=== PATIENT | female | born 1950 | race Caucasian/White ===

== ENCOUNTER 2018-01-18 02:43 | Inpatient (IN) ==
[2018-01-18 03:17] LABS: Basophils # 0.3 K/mcL (0.0-0.2); Basophils % 1.3 %; Eosinophils # 0.6 K/mcL (0.0-0.6); Eosinophils % 2.5 %; Immature Granulocytes % 4.7 % (0-4); Lymphocytes # 8.7 K/mcL (0.6-4.6); Lymphocytes % 35.4 %; Mean Corpuscular HGB Conc 31.8 g/dL (31.6-35.5); Mean Corpuscular Hemoglobin 27.8 pg (28.0-33.3); Mean Corpuscular Volume 87.3 fL (83.0-100.0); Mean Platelet Volume 10.8 fL (9.4-12.4); Monocytes % 8.1 %; Neutrophils # 11.8 K/mcL (1.6-8.9); Nucleated Red Blood Cells 0.1 /100 WBC (0); Platelet Count 500 K/mcL (140-400); Red Blood Count 5.04 M/mcL (3.82-4.97); Red Cell Distribution Width 14.9 % (11.5-14.5)
[2018-01-18 03:23] LABS: Prothrombin Time 10.9 Seconds (9.4-12.1)
[2018-01-18 03:26] LABS: Activated Partial Thrombo Time 26.8 Seconds (26.0-36.0)
--- NOTE | 2018-01-18 03:26 | Emergency Department Note ---
Disposition Clinical Impression: Elevated troponin, Lactic acidosis Congestive heart failure Qualifiers: Heart failure type: unspecified Heart failure chronicity: unspecified Qualified Code(s): I50.9 - Heart failure, unspecified Pulmonary edema Qualifiers: Chronicity: acute Qualified Code(s): J81.0 - Acute pulmonary edema Respiratory failure Qualifiers: Chronicity: acute Respiratory failure complication: unspecified whether with hypoxia or hypercapnia Qualified Code(s): J96.00 - Acute respiratory failure, unspecified whether with hypoxia or hypercapnia Disposition: Admitted As Inpatient Condition: Critical Time of Disposition: 04:39 SOB HPI - General Chief Complaint: ED Shortness of Breath/Dyspnea Stated Complaint: LAMINE Time Seen by Provider: 01/18/18 02:46 Source: EMS Mode of arrival: EMS Limitations: other Nursing Notes Reviewed: Yes Vital Signs Reviewed: Yes - History of Present Illness 67-year-old female reported history of COPD presents an emergency department via EMS for difficulty breathing. On arrival patient is somnolent and in severe respiratory distress. She was found by EMS to be hypoxic 64%. She has a CPAP at home but was found without any oxygen. She had increase worker breathing. On arrival here she has a breathing treatment but his head bobbing with diminished breath sounds bilaterally. She is able to follow some commands but not all. She is not able to provide us with any additional history. On arrival patient is hypertensive systolic 228 with a heart rate of 158 and oxygen saturation of 92%. Emergent intubation was performed by myself 7.5 endotracheal tube with rapid sequence intubation etomidate 30 mg and rocuronium 100 mg. Accessible easy intubation. Suspect likely congestive heart failure exacerbation she appears fluid overload and is hypertensive Pt Subjective Complaint: shortness of breath - Related Data Home Medications Medication Instructions Recorded Confirmed Amlodipine 08/27/15 Aspirin 08/27/15 Citalopram 08/27/15 Gabapentin 08/27/15 Glimepiride 08/27/15 HumuLIN N 08/27/15 08/27/15 Losartan 08/27/15 Metformin 08/27/15 Metoprolol 08/27/15 Ranexa 08/27/15 Previous Rx's Medication Instructions Recorded Sulfamethoxazole/Trimeth DS 1 each PO BID #14 tablet 08/27/15 [Bactrim DS] Benzonatate [Tessalon] 200 mg PO TID PRN #30 capsule 12/01/15 GuaiFENesin ER [Mucinex] 1,200 mg PO BID #20 tbbp.12hr 12/01/15 Nitroglycerin 4.1 gm TL PRN PRN 30 Days spray 12/01/15 cephALEXin [Keflex] 500 mg PO QID #40 capsule 12/01/15 methylPREDNISolone [Medrol] 4 mg PO BIDWM #1 packet 12/01/15 cephALEXin [Cephalexin] 500 mg PO BID #14 tablet 11/10/17 Allergies Allergy/AdvReac Type Severity Reaction Status Date / Time enalaprilat [From Vasotec] Allergy Cough Verified 01/18/18 04:49 Nickel Allergy See Verified 01/18/18 04:49 Comments Beta-Blockers AdvReac Cough Verified 01/18/18 04:49 (Beta-Adrenergic Bloc Limitations: ROS unobtainable due to patients medical condition Past Medical History - Past Medical History Source: unable to obtain Medical history: Reports: diabetes, hypertension - Social History Smoking Status: Never smoker Smokeless Tobacco Status: No Alcohol use: Reports: none Physical Exam - General Limitations: other General appearance: lethargic, in distress (Respiratory, head bobbing), obese - Head Head exam: atraumatic, normocephalic, normal inspection - ENT ENT exam: normal exam, normal oropharynx, mucous membranes moist, other (foamy secretions) - Neck Neck exam: Present: normal inspection, full ROM, trachea midline, other ( buffalo hump) - Chest Chest inspection: Present: normal inspection, symmetric chest wall rise. Absent : tenderness - Respiratory Respiratory exam: Present: respiratory distress (moderate, head bobbing), wheezes, accessory muscle use, prolonged expiratory phase - Expanded Respiratory Exam Location: rhonchi: Right, Left, decreased breath sounds: Left, Right - Cardiovascular Cardiovascular exam: Present: normal rhythm, tachycardia, normal heart sounds. Absent: systolic murmur, diastolic murmur - Abdominal Exam Abdominal exam: Present: soft (obese), Non-Tender. Absent: tenderness, distention, guarding, rebound, rigidity - Extremities Exam Extremities exam: Present: normal inspection, full ROM, pedal edema (+2 pitting symmetrical). Absent: tenderness - Neurological Exam Neurological exam: Present: other (lethargic) - Skin Skin exam: Present: warm, dry, intact, normal color. Absent: rash, cyanosis, diaphoresis Course Course Narrative: The patient's friend who was with her tonight states that she awoken from sleep with her CPAP complaining of shortness of breath. He reports that this happens frequently through the night is not as bad as tonight. He confirms that the patient has a history of COPD, smoker, sleep apnea, diabetes and has a history of 8 stents in her heart. He is unsure if she has congestive heart failure. He states that she has been told that she has fluid around the long but does not take a water pill. Review of her chest x-ray shows appropriate position of endotracheal tube. Findings are consistent with pulmonary edema. Likely secondary to acute exacerbation of heart failure given her hypertension and respiratory failure. Patient will require admission to the intensive care unit for her respiratory failure. Labs are pending. EKG does not show any acute ischemic changes. Patient was successfully intubated on arrival. Will place her on a nitro drip to help with diuresis as a well as a dose of Lasix if her pressures tolerate. Propofol and fentanyl for sedation. Will have a Tovar catheter placed to monitor urine output. - Reevaluation(s) Reevaluation #1: Critical lab values of lactate 6.4 and troponin 0.04. Likely demand ischemia due to respiratory failure. Arterial blood gas pH 7.0 with CO2 of 80. Time: 03:40 Reevaluation #2: Review of her other labs she has a leukocytosis of 24. Her BNP is only 243. Patient will require it admission to the intensive care unit. Her blood pressures remain stable systolic 160 on nitro drip and propofol and fentanyl. She is appropriately sedated. Time: 04:18 Reevaluation #3: Patient given Versed as well as propofol bolus. She is more comfortable and not bucking the vent. Her heart rate has come down to 103. Her blood pressure is near normal systolic 120. Lungs sounds are much improved. There is better gas exchange. Some rales. She does not appear septic. She does not have a fever. No reports of cough home by deputy director of nursing. Leukocytosis likely stress response. At this time no antibiotics have been initiated. At this time presentation is consistent with pulmonary edema. She is stable for transfer to the intensive care unit. Will obtain a CT of the chest to evaluate for pulmonary embolism. - Consultations Consultation #1: Spoke with on-call hospitalist Dr. Naumovski, ok to admit patient to the intensive care unit for acute respiratory failure, pulmonary edema, CHF exacerbation, lactic acidosis, elevated troponin. Given her presentation will obtain a CT of the chest to evaluate for pulmonary embolism. The deputy director of nursing in the room states that she does is quite frequently through the night just not as bad. Time: 04:34 Vital Signs Temperature 97.4 F L 01/18/18 02:45 Pulse Rate 156 01/18/18 02:45 Respiratory Rate 40 01/18/18 02:45 Blood Pressure 250/133 01/18/18 02:45 O2 Sat by Pulse Oximetry 85 01/18/18 02:45 Temperature 97.4 F L 01/18/18 02:45 Pulse Rate 142 01/18/18 04:30 Respiratory Rate 19 01/18/18 04:57 Blood Pressure 120/86 01/18/18 04:57 O2 Sat by Pulse Oximetry 94 01/18/18 04:57 Oxygen Delivery Oxygen Delivery Ventilator Procedures - Intubation sedative: Etomidate Mg Given: 30 paralytic: Rocuronium Mg Given: 100 Laryngoscope: Milo ET Tube Size: 7.5 ET Tube Uncuffed: No Tube Secured Depth (cm): 22 Tube Secured Location: lips Tube Placement Confirmation: visualized tube passing through cords, equal breath sounds bilaterally, no breath sounds over epigastrium, confirmation by capnometry Patient Tolerated Procedure: well, no complications Intubation Complications: none Shortness of Breath/Dyspnea - MDM Narrative Medical decision making narrative: Patient was discussed with my attending physician who agrees with ED management and final disposition. They independently evaluated the patient. Please refer to their attestation to this encounter for additional information. This note was generated by [employer] voice recognition software and as a result grammatical or spelling errors may occur using this program. - Medical Records Medical records reviewed: Yes I reviewed the patient's medical records. - Lab Data Lab results reviewed: Yes I reviewed the patient's lab results. Result diagrams: 01/18/18 02:53 01/18/18 02:53 Lab Results 01/18/18 01/18/18 01/18/18 Range/Units 02:53 02:53 02:53 WBC 24.6 H (4.3-11.1) K/mcL RBC 5.04 H (3.82-4.97) M/mcL Hgb 14.0 (11.5-15.4) g/dL Hct 44.0 (35.3-44.9) % MCV 87.3 (83.0-100.0) fL MCH 27.8 L (28.0-33.3) pg MCHC 31.8 (31.6-35.5) g/dL RDW 14.9 H (11.5-14.5) % Plt Count 500 H (140-400) K/mcL MPV 10.8 (9.4-12.4) fL Immature Gran % 4.7 H (0-4) % Seg Neutrophils % 48.0 % Lymphocytes % 35.4 % Monocytes % 8.1 % Eosinophils % 2.5 % Basophils % 1.3 % Neutrophils # 11.8 H (1.6-8.9) K/mcL Lymphocytes # 8.7 H (0.6-4.6) K/mcL Monocytes # 2.0 H (0.0-1.3) K/mcL Eosinophils # 0.6 (0.0-0.6) K/mcL Basophils # 0.3 H (0.0-0.2) K/mcL Nucleated RBCs/100 WBC 0.1 H (0) /100 WBC Platelet Estimate Increased H (Normal) PT 10.9 (9.4-12.1) Seconds INR 1.0 APTT 26.8 (26.0-36.0) Seconds ABG pH (7.32-7.45) pH Units ABG pCO2 (35-45) mmHg ABG pO2 (85-104) mmHg ABG HCO3 (21-27) mEq/L ABG Total CO2 (20-26) mEq/L ABG O2 Saturation (95-98) % ABG Base Excess (-2 to 3) mEq/L Respiration Rate O2 Delivery Device Blood Gas Modality Inspired O2 (1-15=lpm [id number]=%) Tidal Volume cc PEEP cm H2O Sodium 137 (136-145) mEq/L Potassium 4.2 (3.5-5.1) mEq/L Chloride 104 (98-107) mEq/L Carbon Dioxide 18 L (23-29) mEq/L BUN 19 (8-23) mg/dL Creatinine 1.07 (0.60-1.20) mg/dL Est GFR ( Amer) > 60 (> 60) Est GFR (Non-Af Amer) 51 L (> 60) BUN/Creatinine Ratio 18 (6-26) Glucose 466 H (70-105) mg/dL Calculated Osmolality 307 H (280-300) Lactic Acid (0.5-2.2) mmol/L Calcium 8.9 (8.6-10.3) mg/dL Phosphorus 7.4 H (2.7-4.5) mg/dL Magnesium 1.9 (1.6-2.6) mg/dL Total Bilirubin 0.3 (0.3-1.0) mg/dL Direct Bilirubin 0.0 (0.0-0.2) mg/dL Indirect Bilirubin 0.3 (0.0-1.2) mg/dL AST 20 (13-39) Units/L ALT 19 (7-52) Units/L Alkaline Phosphatase 112 H (34-104) Units/L Troponin I 0.04 H* (< 0.04) ng/mL B-Natriuretic Peptide (Less than 100) pg/mL Serum Total Protein 6.9 (6.4-8.9) g/dL Albumin 4.1 (3.5-5.7) g/dL Globulin 2.8 (2.4-3.5) g/dL Albumin/Globulin Ratio 1.5 (1.1-2.2) Urine Color (Yellow) Urine Clarity (Clear) Urine pH (5.0-8.0) pH Units Ur Specific [place] (1.010-1.025) Urine Protein (Neg-Trace) mg/dL Urine Glucose (UA) (Normal) mg/dL Urine Ketones (Negative) mg/dL Urine Blood (Negative) Urine Nitrite (Negative) Urine Bilirubin (Negative) Urine Urobilinogen (Normal) mg/dL Ur Leukocyte Esterase (Negative) Urine Microscopic RBC (0-3) per hpf Urine Microscopic WBC (0-3) per hpf Ur Squamous Epith Cells (None-Few) per lpf Urine Bacteria (None-Few) per hpf Hyaline Casts (None-Few) per lpf Ur Culture Indicated? (NO) 01/18/18 01/18/18 01/18/18 Range/Units 02:53 02:53 03:18 WBC (4.3-11.1) K/mcL RBC (3.82-4.97) M/mcL Hgb (11.5-15.4) g/dL Hct (35.3-44.9) % MCV (83.0-100.0) fL MCH (28.0-33.3) pg MCHC (31.6-35.5) g/dL RDW (11.5-14.5) % Plt Count (140-400) K/mcL MPV (9.4-12.4) fL Immature Gran % (0-4) % Seg Neutrophils % % Lymphocytes % % Monocytes % % Eosinophils % % Basophils % % Neutrophils # (1.6-8.9) K/mcL Lymphocytes # (0.6-4.6) K/mcL Monocytes # (0.0-1.3) K/mcL Eosinophils # (0.0-0.6) K/mcL Basophils # (0.0-0.2) K/mcL Nucleated RBCs/100 WBC (0) /100 WBC Platelet Estimate (Normal) PT (9.4-12.1) Seconds INR APTT (26.0-36.0) Seconds ABG pH (7.32-7.45) pH Units ABG pCO2 (35-45) mmHg ABG pO2 (85-104) mmHg ABG HCO3 (21-27) mEq/L ABG Total CO2 (20-26) mEq/L ABG O2 Saturation (95-98) % ABG Base Excess (-2 to 3) mEq/L Respiration Rate O2 Delivery Device Blood Gas Modality Inspired O2 (1-15=lpm [id number]=%) Tidal Volume cc PEEP cm H2O Sodium (136-145) mEq/L Potassium (3.5-5.1) mEq/L Chloride (98-107) mEq/L Carbon Dioxide (23-29) mEq/L BUN (8-23) mg/dL Creatinine (0.60-1.20) mg/dL Est GFR ( Amer) (> 60) Est GFR (Non-Af Amer) (> 60) BUN/Creatinine Ratio (6-26) Glucose (70-105) mg/dL Calculated Osmolality (280-300) Lactic Acid 6.4 H* (0.5-2.2) mmol/L Calcium (8.6-10.3) mg/dL Phosphorus (2.7-4.5) mg/dL Magnesium (1.6-2.6) mg/dL Total Bilirubin (0.3-1.0) mg/dL Direct Bilirubin (0.0-0.2) mg/dL Indirect Bilirubin (0.0-1.2) mg/dL AST (13-39) Units/L ALT (7-52) Units/L Alkaline Phosphatase (34-104) Units/L Troponin I (< 0.04) ng/mL B-Natriuretic Peptide 243 H (Less than 100) pg/mL Serum Total Protein (6.4-8.9) g/dL Albumin (3.5-5.7) g/dL Globulin (2.4-3.5) g/dL Albumin/Globulin Ratio (1.1-2.2) Urine Color Yellow (Yellow) Urine Clarity Cloudy A (Clear) Urine pH 6.0 (5.0-8.0) pH Units Ur Specific [place] 1.026 H (1.010-1.025) Urine Protein >=300 H (Neg-Trace) mg/dL Urine Glucose (UA) >=1000 H (Normal) mg/dL Urine Ketones Negative (Negative) mg/dL Urine Blood Small H (Negative) Urine Nitrite Negative (Negative) Urine Bilirubin Negative (Negative) Urine Urobilinogen Normal (Normal) mg/dL Ur Leukocyte Esterase Negative (Negative) Urine Microscopic RBC 0-3 (0-3) per hpf Urine Microscopic WBC 50-100 H (0-3) per hpf Ur Squamous Epith Cells Many H (None-Few) per lpf Urine Bacteria None Seen (None-Few) per hpf Hyaline Casts Few (None-Few) per lpf Ur Culture Indicated? NO (NO) 01/18/18 Range/Units 03:25 WBC (4.3-11.1) K/mcL RBC (3.82-4.97) M/mcL Hgb (11.5-15.4) g/dL Hct (35.3-44.9) % MCV (83.0-100.0) fL MCH (28.0-33.3) pg MCHC (31.6-35.5) g/dL RDW (11.5-14.5) % Plt Count (140-400) K/mcL MPV (9.4-12.4) fL Immature Gran % (0-4) % Seg Neutrophils % % Lymphocytes % % Monocytes % % Eosinophils % % Basophils % % Neutrophils # (1.6-8.9) K/mcL Lymphocytes # (0.6-4.6) K/mcL Monocytes # (0.0-1.3) K/mcL Eosinophils # (0.0-0.6) K/mcL Basophils # (0.0-0.2) K/mcL Nucleated RBCs/100 WBC (0) /100 WBC Platelet Estimate (Normal) PT (9.4-12.1) Seconds INR APTT (26.0-36.0) Seconds ABG pH 7.02 L* (7.32-7.45) pH Units ABG pCO2 87 H* (35-45) mmHg ABG pO2 146 H (85-104) mmHg ABG HCO3 23 (21-27) mEq/L ABG Total CO2 25 (20-26) mEq/L ABG O2 Saturation 98 (95-98) % ABG Base Excess -11 L (-2 to 3) mEq/L Respiration Rate 14 O2 Delivery Device Adult Vent Blood Gas Modality VC Inspired O2 100.0 (1-15=lpm [id number]=%) Tidal Volume 500 cc PEEP 5 cm H2O Sodium (136-145) mEq/L Potassium (3.5-5.1) mEq/L Chloride (98-107) mEq/L Carbon Dioxide (23-29) mEq/L BUN (8-23) mg/dL Creatinine (0.60-1.20) mg/dL Est GFR ( Amer) (> 60) Est GFR (Non-Af Amer) (> 60) BUN/Creatinine Ratio (6-26) Glucose (70-105) mg/dL Calculated Osmolality (280-300) Lactic Acid (0.5-2.2) mmol/L Calcium (8.6-10.3) mg/dL Phosphorus (2.7-4.5) mg/dL Magnesium (1.6-2.6) mg/dL Total Bilirubin (0.3-1.0) mg/dL Direct Bilirubin (0.0-0.2) mg/dL Indirect Bilirubin (0.0-1.2) mg/dL AST (13-39) Units/L ALT (7-52) Units/L Alkaline Phosphatase (34-104) Units/L Troponin I (< 0.04) ng/mL B-Natriuretic Peptide (Less than 100) pg/mL Serum Total Protein (6.4-8.9) g/dL Albumin (3.5-5.7) g/dL Globulin (2.4-3.5) g/dL Albumin/Globulin Ratio (1.1-2.2) Urine Color (Yellow) Urine Clarity (Clear) Urine pH (5.0-8.0) pH Units Ur Specific [place] (1.010-1.025) Urine Protein (Neg-Trace) mg/dL Urine Glucose (UA) (Normal) mg/dL Urine Ketones (Negative) mg/dL Urine Blood (Negative) Urine Nitrite (Negative) Urine Bilirubin (Negative) Urine Urobilinogen (Normal) mg/dL Ur Leukocyte Esterase (Negative) Urine Microscopic RBC (0-3) per hpf Urine Microscopic WBC (0-3) per hpf Ur Squamous Epith Cells (None-Few) per lpf Urine Bacteria (None-Few) per hpf Hyaline Casts (None-Few) per lpf Ur Culture Indicated? (NO) - Radiology Data Radiology results reviewed: Yes I reviewed the patient's radiology results. Chest X-Ray 01/18/18 03:06 IMPRESSION: Chest: 1. The endotracheal tube tip is 4.4 cm above the sergio. 2. Pulmonary edema. Abdomen: The enteric tube is in good position in the stomach. D/ / Rodríguez Walker MD / Rodríguez Walker MD Interpreting Provider: Rodríguez Walker MD X-Ray 01/18/18 03:06 IMPRESSION: Chest: 1. The endotracheal tube tip is 4.4 cm above the sergio. 2. Pulmonary edema. Abdomen: The enteric tube is in good position in the stomach. D/ / Rodríguez Walker MD / Rodríguez Walker MD Interpreting Provider: Rodríguez Wakler MD - EKG Data EKG attestation: Yes I reviewed and interpreted this EKG. EKG results narrative: EKG performed 0249 SVT 1 57 bpm, poor R wave progression, no ST elevation or depression. Compared to prior EKG performed 05/30/2014 shows normal sinus rhythm 79 beats per minute no acute ischemic changes.
[2018-01-18 03:27] LABS: Bilirubin,Urine Negative (Negative); Blood,Urine Small (Negative); Clarity,Urine Cloudy (Clear); Color,Urine Yellow (Yellow); Glucose,Urine (UA) >=1000 mg/dL (Normal); Ketones,Urine Negative (Negative); Leukocyte Esterase,Urine Negative (Negative); Nitrite,Urine Negative (Negative); Protein,Urine >=300 mg/dL (Neg-Trace); Specific Gravity,Urine 1.026 (1.010-1.025); Urobilinogen,Urine Normal (Normal)
[2018-01-18] MEDS ORDERED: Furosemide 40 MG/4 ML VIAL IVP ONE ×2 (03:28→17:31)
[2018-01-18 03:30] LABS: Bacteria,Urine None Seen per hpf (None-Few); Hyaline Casts,Urine Few per lpf (None-Few); RBC,Urine 0-3 per hpf (0-3); Squamous Epithelial Cell,Urine Many per lpf (None-Few); WBC,Urine 50-100 per hpf (0-3)
[2018-01-18] MEDS: Nitroglycerin 25 MG/250 ML INFUS..BTL IVC SCH (03:30)
[2018-01-18 03:31] LABS: ABG Base Excess -11 mEq/L (-2 to 3); ABG HCO3 23 mEq/L (21-27); ABG Oxygen Saturation 98 % (95-98); ABG PCO2 87 mmHg (35-45); ABG PH 7.02 pH Units (7.32-7.45); ABG PO2 146 mmHg (85-104); ABG TCO2 25 mEq/L (20-26); Blood Gas Modality VC; Blood Gas PEEP 5 cm H2O; Blood Gas Respiration Rate 14; Blood Gas VT 500 cc
[2018-01-18 03:40] LABS: Platelet Estimate Increased (Normal)
[2018-01-18] MEDS: FentaNYL (PF) 1,000 MCG in 0.9 % Sodium Chloride 80 ML IVC SCH ×2 (03:41→13:00)
[2018-01-18 03:43] LABS: Alanine Aminotransferase 19 Units/L (7-52); Albumin 4.1 g/dL (3.5-5.7); Albumin/Globulin Ratio 1.5 (1.1-2.2); Alkaline Phosphatase 112 Units/L (34-104); Aspartate Amino Transferase 20 Units/L (13-39); BUN/Creatinine Ratio 18 (6-26); Bilirubin,Indirect 0.3 mg/dL (0.0-1.2); Bilirubin,Total 0.3 mg/dL (0.3-1.0); Blood Urea Nitrogen 19 mg/dL (8-23); Calcium 8.9 mg/dL (8.6-10.3); Carbon Dioxide 18 mEq/L (23-29); Chloride 104 mEq/L (98-107); Globulin 2.8 g/dL (2.4-3.5); Glucose 466 mg/dL (70-105); Magnesium 1.9 mg/dL (1.6-2.6); Osmolality,Calculated 307 (280-300); Phosphorous 7.4 mg/dL (2.7-4.5); Potassium 4.2 mEq/L (3.5-5.1); Sodium 137 mEq/L (136-145); Total Protein 6.9 g/dL (6.4-8.9); eGFR For African Americans > 60 (> 60); eGFR For Non-African Americans 51 (> 60)
[2018-01-18 03:46] LABS: Troponin I 0.04 ng/mL (< 0.04)
--- NOTE | 2018-01-18 04:16 | Emergency Department Note ---
Disposition Clinical Impression: Elevated troponin, Lactic acidosis Congestive heart failure Qualifiers: Heart failure type: unspecified Heart failure chronicity: unspecified Qualified Code(s): I50.9 - Heart failure, unspecified Pulmonary edema Qualifiers: Chronicity: acute Qualified Code(s): J81.0 - Acute pulmonary edema Respiratory failure Qualifiers: Chronicity: acute Respiratory failure complication: unspecified whether with hypoxia or hypercapnia Qualified Code(s): J96.00 - Acute respiratory failure, unspecified whether with hypoxia or hypercapnia Disposition: Admitted As Inpatient Condition: Critical Referrals: Jann Payne MD [Primary Care Provider] - Forms: ED Satisfaction Letter General Adult HPI - General Chief complaint: ED Shortness of Breath/Dyspnea Stated complaint: LAMINE Time Seen by Provider: 01/18/18 02:46 Source: EMS Mode of arrival: EMS Limitations: other Nursing Notes Reviewed: Yes Vital Signs Reviewed: Yes - History of Present Illness Pain Scale: 0 - Related Data Home Medications Medication Instructions Recorded Confirmed Amlodipine 08/27/15 Aspirin 08/27/15 Citalopram 08/27/15 Gabapentin 08/27/15 Glimepiride 08/27/15 HumuLIN N 08/27/15 08/27/15 Losartan 08/27/15 Metformin 08/27/15 Metoprolol 08/27/15 Ranexa 08/27/15 Previous Rx's Medication Instructions Recorded Sulfamethoxazole/Trimeth DS 1 each PO BID #14 tablet 08/27/15 [Bactrim DS] Benzonatate [Tessalon] 200 mg PO TID PRN #30 capsule 12/01/15 GuaiFENesin ER [Mucinex] 1,200 mg PO BID #20 tbbp.12hr 12/01/15 Nitroglycerin 4.1 gm TL PRN PRN 30 Days spray 12/01/15 cephALEXin [Keflex] 500 mg PO QID #40 capsule 12/01/15 methylPREDNISolone [Medrol] 4 mg PO BIDWM #1 packet 12/01/15 cephALEXin [Cephalexin] 500 mg PO BID #14 tablet 11/10/17 Allergies Allergy/AdvReac Type Severity Reaction Status Date / Time enalaprilat [From Vasotec] Allergy Cough Verified 01/18/18 04:49 Nickel Allergy See Verified 01/18/18 04:49 Comments Beta-Blockers AdvReac Cough Verified 01/18/18 04:49 (Beta-Adrenergic Bloc Past Medical History - Past Medical History Medical history: Reports: diabetes, hypertension - Social History Smoking Status: Never smoker Smokeless Tobacco Status: No Alcohol use: Reports: none Physical Exam - General Limitations: other General appearance: lethargic, in distress (Respiratory, Ed bobbing), obese Course Vital Signs Temperature 97.4 F L 01/18/18 02:45 Pulse Rate 156 01/18/18 02:45 Respiratory Rate 40 01/18/18 02:45 Blood Pressure 250/133 01/18/18 02:45 O2 Sat by Pulse Oximetry 85 01/18/18 02:45 Temperature 97.4 F L 01/18/18 02:45 Pulse Rate 142 01/18/18 04:30 Respiratory Rate 19 01/18/18 04:57 Blood Pressure 120/86 01/18/18 04:57 O2 Sat by Pulse Oximetry 94 01/18/18 04:57 Oxygen Delivery Oxygen Delivery Ventilator Medical Decision Making - Lab Data Result diagrams: 01/18/18 02:53 01/18/18 02:53 Lab Results 01/18/18 01/18/18 01/18/18 Range/Units 02:53 02:53 02:53 WBC 24.6 H (4.3-11.1) K/mcL RBC 5.04 H (3.82-4.97) M/mcL Hgb 14.0 (11.5-15.4) g/dL Hct 44.0 (35.3-44.9) % MCV 87.3 (83.0-100.0) fL MCH 27.8 L (28.0-33.3) pg MCHC 31.8 (31.6-35.5) g/dL RDW 14.9 H (11.5-14.5) % Plt Count 500 H (140-400) K/mcL MPV 10.8 (9.4-12.4) fL Immature Gran % 4.7 H (0-4) % Seg Neutrophils % 48.0 % Lymphocytes % 35.4 % Monocytes % 8.1 % Eosinophils % 2.5 % Basophils % 1.3 % Neutrophils # 11.8 H (1.6-8.9) K/mcL Lymphocytes # 8.7 H (0.6-4.6) K/mcL Monocytes # 2.0 H (0.0-1.3) K/mcL Eosinophils # 0.6 (0.0-0.6) K/mcL Basophils # 0.3 H (0.0-0.2) K/mcL Nucleated RBCs/100 WBC 0.1 H (0) /100 WBC Platelet Estimate Increased H (Normal) PT 10.9 (9.4-12.1) Seconds INR 1.0 APTT 26.8 (26.0-36.0) Seconds ABG pH (7.32-7.45) pH Units ABG pCO2 (35-45) mmHg ABG pO2 (85-104) mmHg ABG HCO3 (21-27) mEq/L ABG Total CO2 (20-26) mEq/L ABG O2 Saturation (95-98) % ABG Base Excess (-2 to 3) mEq/L Respiration Rate O2 Delivery Device Blood Gas Modality Inspired O2 (1-15=lpm [id number]=%) Tidal Volume cc PEEP cm H2O Sodium 137 (136-145) mEq/L Potassium 4.2 (3.5-5.1) mEq/L Chloride 104 (98-107) mEq/L Carbon Dioxide 18 L (23-29) mEq/L BUN 19 (8-23) mg/dL Creatinine 1.07 (0.60-1.20) mg/dL Est GFR ( Amer) > 60 (> 60) Est GFR (Non-Af Amer) 51 L (> 60) BUN/Creatinine Ratio 18 (6-26) Glucose 466 H (70-105) mg/dL Calculated Osmolality 307 H (280-300) Lactic Acid (0.5-2.2) mmol/L Calcium 8.9 (8.6-10.3) mg/dL Phosphorus 7.4 H (2.7-4.5) mg/dL Magnesium 1.9 (1.6-2.6) mg/dL Total Bilirubin 0.3 (0.3-1.0) mg/dL Direct Bilirubin 0.0 (0.0-0.2) mg/dL Indirect Bilirubin 0.3 (0.0-1.2) mg/dL AST 20 (13-39) Units/L ALT 19 (7-52) Units/L Alkaline Phosphatase 112 H (34-104) Units/L Troponin I 0.04 H* (< 0.04) ng/mL B-Natriuretic Peptide (Less than 100) pg/mL Serum Total Protein 6.9 (6.4-8.9) g/dL Albumin 4.1 (3.5-5.7) g/dL Globulin 2.8 (2.4-3.5) g/dL Albumin/Globulin Ratio 1.5 (1.1-2.2) Urine Color (Yellow) Urine Clarity (Clear) Urine pH (5.0-8.0) pH Units Ur Specific Thayer (1.010-1.025) Urine Protein (Neg-Trace) mg/dL Urine Glucose (UA) (Normal) mg/dL Urine Ketones (Negative) mg/dL Urine Blood (Negative) Urine Nitrite (Negative) Urine Bilirubin (Negative) Urine Urobilinogen (Normal) mg/dL Ur Leukocyte Esterase (Negative) Urine Microscopic RBC (0-3) per hpf Urine Microscopic WBC (0-3) per hpf Ur Squamous Epith Cells (None-Few) per lpf Urine Bacteria (None-Few) per hpf Hyaline Casts (None-Few) per lpf Ur Culture Indicated? (NO) 01/18/18 01/18/18 01/18/18 Range/Units 02:53 02:53 03:18 WBC (4.3-11.1) K/mcL RBC (3.82-4.97) M/mcL Hgb (11.5-15.4) g/dL Hct (35.3-44.9) % MCV (83.0-100.0) fL MCH (28.0-33.3) pg MCHC (31.6-35.5) g/dL RDW (11.5-14.5) % Plt Count (140-400) K/mcL MPV (9.4-12.4) fL Immature Gran % (0-4) % Seg Neutrophils % % Lymphocytes % % Monocytes % % Eosinophils % % Basophils % % Neutrophils # (1.6-8.9) K/mcL Lymphocytes # (0.6-4.6) K/mcL Monocytes # (0.0-1.3) K/mcL Eosinophils # (0.0-0.6) K/mcL Basophils # (0.0-0.2) K/mcL Nucleated RBCs/100 WBC (0) /100 WBC Platelet Estimate (Normal) PT (9.4-12.1) Seconds INR APTT (26.0-36.0) Seconds ABG pH (7.32-7.45) pH Units ABG pCO2 (35-45) mmHg ABG pO2 (85-104) mmHg ABG HCO3 (21-27) mEq/L ABG Total CO2 (20-26) mEq/L ABG O2 Saturation (95-98) % ABG Base Excess (-2 to 3) mEq/L Respiration Rate O2 Delivery Device Blood Gas Modality Inspired O2 (1-15=lpm [id number]=%) Tidal Volume cc PEEP cm H2O Sodium (136-145) mEq/L Potassium (3.5-5.1) mEq/L Chloride (98-107) mEq/L Carbon Dioxide (23-29) mEq/L BUN (8-23) mg/dL Creatinine (0.60-1.20) mg/dL Est GFR ( Amer) (> 60) Est GFR (Non-Af Amer) (> 60) BUN/Creatinine Ratio (6-26) Glucose (70-105) mg/dL Calculated Osmolality (280-300) Lactic Acid 6.4 H* (0.5-2.2) mmol/L Calcium (8.6-10.3) mg/dL Phosphorus (2.7-4.5) mg/dL Magnesium (1.6-2.6) mg/dL Total Bilirubin (0.3-1.0) mg/dL Direct Bilirubin (0.0-0.2) mg/dL Indirect Bilirubin (0.0-1.2) mg/dL AST (13-39) Units/L ALT (7-52) Units/L Alkaline Phosphatase (34-104) Units/L Troponin I (< 0.04) ng/mL B-Natriuretic Peptide 243 H (Less than 100) pg/mL Serum Total Protein (6.4-8.9) g/dL Albumin (3.5-5.7) g/dL Globulin (2.4-3.5) g/dL Albumin/Globulin Ratio (1.1-2.2) Urine Color Yellow (Yellow) Urine Clarity Cloudy A (Clear) Urine pH 6.0 (5.0-8.0) pH Units Ur Specific Thayer 1.026 H (1.010-1.025) Urine Protein >=300 H (Neg-Trace) mg/dL Urine Glucose (UA) >=1000 H (Normal) mg/dL Urine Ketones Negative (Negative) mg/dL Urine Blood Small H (Negative) Urine Nitrite Negative (Negative) Urine Bilirubin Negative (Negative) Urine Urobilinogen Normal (Normal) mg/dL Ur Leukocyte Esterase Negative (Negative) Urine Microscopic RBC 0-3 (0-3) per hpf Urine Microscopic WBC 50-100 H (0-3) per hpf Ur Squamous Epith Cells Many H (None-Few) per lpf Urine Bacteria None Seen (None-Few) per hpf Hyaline Casts Few (None-Few) per lpf Ur Culture Indicated? NO (NO) 01/18/18 Range/Units 03:25 WBC (4.3-11.1) K/mcL RBC (3.82-4.97) M/mcL Hgb (11.5-15.4) g/dL Hct (35.3-44.9) % MCV (83.0-100.0) fL MCH (28.0-33.3) pg MCHC (31.6-35.5) g/dL RDW (11.5-14.5) % Plt Count (140-400) K/mcL MPV (9.4-12.4) fL Immature Gran % (0-4) % Seg Neutrophils % % Lymphocytes % % Monocytes % % Eosinophils % % Basophils % % Neutrophils # (1.6-8.9) K/mcL Lymphocytes # (0.6-4.6) K/mcL Monocytes # (0.0-1.3) K/mcL Eosinophils # (0.0-0.6) K/mcL Basophils # (0.0-0.2) K/mcL Nucleated RBCs/100 WBC (0) /100 WBC Platelet Estimate (Normal) PT (9.4-12.1) Seconds INR APTT (26.0-36.0) Seconds ABG pH 7.02 L* (7.32-7.45) pH Units ABG pCO2 87 H* (35-45) mmHg ABG pO2 146 H (85-104) mmHg ABG HCO3 23 (21-27) mEq/L ABG Total CO2 25 (20-26) mEq/L ABG O2 Saturation 98 (95-98) % ABG Base Excess -11 L (-2 to 3) mEq/L Respiration Rate 14 O2 Delivery Device Adult Vent Blood Gas Modality VC Inspired O2 100.0 (1-15=lpm [id number]=%) Tidal Volume 500 cc PEEP 5 cm H2O Sodium (136-145) mEq/L Potassium (3.5-5.1) mEq/L Chloride (98-107) mEq/L Carbon Dioxide (23-29) mEq/L BUN (8-23) mg/dL Creatinine (0.60-1.20) mg/dL Est GFR ( Amer) (> 60) Est GFR (Non-Af Amer) (> 60) BUN/Creatinine Ratio (6-26) Glucose (70-105) mg/dL Calculated Osmolality (280-300) Lactic Acid (0.5-2.2) mmol/L Calcium (8.6-10.3) mg/dL Phosphorus (2.7-4.5) mg/dL Magnesium (1.6-2.6) mg/dL Total Bilirubin (0.3-1.0) mg/dL Direct Bilirubin (0.0-0.2) mg/dL Indirect Bilirubin (0.0-1.2) mg/dL AST (13-39) Units/L ALT (7-52) Units/L Alkaline Phosphatase (34-104) Units/L Troponin I (< 0.04) ng/mL B-Natriuretic Peptide (Less than 100) pg/mL Serum Total Protein (6.4-8.9) g/dL Albumin (3.5-5.7) g/dL Globulin (2.4-3.5) g/dL Albumin/Globulin Ratio (1.1-2.2) Urine Color (Yellow) Urine Clarity (Clear) Urine pH (5.0-8.0) pH Units Ur Specific Thayer (1.010-1.025) Urine Protein (Neg-Trace) mg/dL Urine Glucose (UA) (Normal) mg/dL Urine Ketones (Negative) mg/dL Urine Blood (Negative) Urine Nitrite (Negative) Urine Bilirubin (Negative) Urine Urobilinogen (Normal) mg/dL Ur Leukocyte Esterase (Negative) Urine Microscopic RBC (0-3) per hpf Urine Microscopic WBC (0-3) per hpf Ur Squamous Epith Cells (None-Few) per lpf Urine Bacteria (None-Few) per hpf Hyaline Casts (None-Few) per lpf Ur Culture Indicated? (NO) Critical Care Time Critical Care Time: Yes Total Critical Care Time: 60 Attestation: Critical care performed: Time is exclusive of separately billable procedures. Time includes: direct patient care, patient reassessment, coordination of patient care, interpretation of data (laboratory data, radiology data, and respiratory data), review of patient's medical records, medical consultation and documentation of patient care. Procedures included in critical care time: Procedures excluded from critical care time: Endotracheal intubation Attestation Statement - Attestation Attestation: I, Esau Weiss MD, personally evaluated this patient and discussed their management with the resident physician. I reviewed the resident's note and agree with the documented findings, medical decision making, and plan of care. 67-year-old female presents to the emergency department by ambulance for respiratory distress. Patient apparently developed respiratory distress during the middle the night and her quality control engineer called EMS. EMS reports on their arrival at the home the patient's oxygen saturation was 64%. She is not on home oxygen. She does have CPAP for sleep apnea. 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 On arrival here in the emergency department patient's oxygen saturation is 92% on a nebulizer mask. Patient in severe respiratory distress. She is unable to speak. She does respond to verbal stimuli. Unable to provide any history or review of systems. On examination patient is a well-developed obese elderly female in severe respiratory distress. She is profusely diaphoretic with some peripheral cyanosis. Lethargic but responsive. Breath sounds are markedly decreased bilaterally with coarse diffuse bilateral rales. Heart regular with a marked tachycardia. Abdomen soft with present bowel sounds. 2+ pitting edema lower extremities bilaterally. Patient was intubated orally by Dr. Pereira on first attempt without difficulty or complication shortly after arrival. She received etomidate and rocuronium for intubation. There was good color change by CO2 detector and good breath sounds bilaterally with intubation. Portable chest x-ray obtained and showed the endotracheal tube in good position above the sergio. Chest x-ray showed pulmonary edema. Patient placed on ventilator. She was also hypertensive and was placed on nitroglycerin infusion for hypertension and pulmonary edema. She received IV Lasix. Tovar catheter inserted. Propofol infusion and fentanyl infusion for sedation. The hospitalist, Dr. Person, was consulted and accepted admission of the patient. He requested a CTA of the chest prior to transferring patient to the ICU.
[2018-01-18] MEDS ORDERED: *HR* Midazolam HCl 2 MG/2 ML VIAL IVP ONE (04:34)
[2018-01-18] MEDS ORDERED: Isovue-370 500 ML INFUS..BTL IV ONE (04:34)
--- NOTE | 2018-01-18 04:55 | Internal Med History&Physical ---
<Kwaku Saldana - Last Filed: 01/18/18 06:00> Date of Encounter: 01/18/18 Time of Encounter: 04:53 Internal Medicine - H&P: HPI Chief complaint: Diffiuclty in Breathing Admitted From: Emergency Dept History of present illness: Ms. Michaels is a 67 year old female with history of COPD, CAD with 8 stents placed last one placed 1 year ago, type 2 diabetes insulin-dependent presented to the emergency department tonight for difficulty in breathing. EMS brought her and said that she was hypoxic at 64% she was on CPAP at home but was found without any other oxygen. Boyfriend noticed that she was having very hard time breathing and she woke up from sleep seen that she felt like she was suffocating. In the emergency department she was unable to follow commands very lethargic and was hypertensive with a systolic of 228 and a heart rate of 158. Saturations by EMS for 64%. They said in abating the emergency department. After talking to her boyfriend he states that she does do CPAP at night they recently changed her settings and patient has been complaining of the last 3 days that she feels that she suffocating and cannot use it. She is not on any Lasix but has been requesting it from her primary care physician but they are not going to give it to her and state that she needs speak with her veterinary technologist but they have not had an appointment yet with them to ask for the Lasix. Patient has had no recent illnesses leading up to this she has had no fevers, chills, nausea, vomiting she has had no chest pain or shortness of breath. Patient has had a cough for approximately 6 months but nothing acute. Otherwise patient has no complaints leading up to this. Past Med Surg Social Fam HX - Past Medical History Medical history: diabetes, hypertension - Social History Smoking Status: Never smoker Smokeless Tobacco Status: No Alcohol use: none Internal Medicine - H&P: Meds Amlodipine 08/27/15 [History] Aspirin 08/27/15 [History] Citalopram 08/27/15 [History] Gabapentin 08/27/15 [History] Glimepiride 08/27/15 [History] HumuLIN N 08/27/15 [History] Losartan 08/27/15 [History] Metformin 08/27/15 [History] Metoprolol 08/27/15 [History] Ranexa 08/27/15 [History] Sulfamethoxazole/Trimeth DS [Bactrim DS] 1 each PO BID #14 tablet 08/27/15 [Rx] Benzonatate [Tessalon] 200 mg PO TID PRN #30 capsule 12/01/15 [Rx] GuaiFENesin ER [Mucinex] 1,200 mg PO BID #20 tbbp.12hr 12/01/15 [Rx] Nitroglycerin 4.1 gm TL PRN PRN 30 Days spray 12/01/15 [Rx] cephALEXin [Keflex] 500 mg PO QID #40 capsule 12/01/15 [Rx] methylPREDNISolone [Medrol] 4 mg PO BIDWM #1 packet 12/01/15 [Rx] cephALEXin [Cephalexin] 500 mg PO BID #14 tablet 11/10/17 [Rx] 3 Allergy/AdvReac Type Severity Reaction Status Date / Time enalaprilat [From Vasotec] Allergy Cough Verified 01/18/18 04:49 Nickel Allergy See Verified 01/18/18 04:49 Comments Beta-Blockers AdvReac Cough Verified 01/18/18 04:49 (Beta-Adrenergic Bloc ROS unobtainable: due to endotracheal tube All Systems PM: A 10-system review of systems was performed and is negative for pertinent findings except as documented above in the HPI. - Constitutional Vitals: Temp Pulse Resp BP Pulse Ox 97.4 F L 142 18 211/120 96 01/18/18 02:45 01/18/18 04:30 01/18/18 04:10 01/18/18 04:30 01/18/18 04:30 General appearance: Present: no acute distress (Currently sedated and somnolent at this time unable to answer questions due to sedation) - Head Head exam: Present: atraumatic, normocephalic - Eye Eye exam: Present: PERRL, conjuntiva pink, sclera anicteric Pupils: Present: PERRL - Neck Neck exam general surgery: Present: supple, trachea midline. Absent: lymphadenopathy - Respiratory Respiratory exam: Present: decreased breath sounds, rhonchi. Absent: accessory muscle use, rales, respiratory distress, wheezes - Cardiovascular Cardiovascular exam: Present: RRR, +S1, +S2. Absent: diastolic murmur, gallop, rubs, systolic murmur - GI/Abdominal GI/Abdominal exam: Present: normal bowel sounds, soft, no peritoneal signs. Absent: distended, tenderness - Extremities Exam Extremities exam: Present: warm, radial pulses palpable and symmetrical. Absent : cyanotic, pedal edema - Neurological Exam Neurological exam: Present: no focal deficits (Also PERRLA) - Skin Skin exam: Present: dry, intact Internal Med - H&P Results - Labs CBC & Chem 7: 01/18/18 02:53 01/18/18 02:53 Labs: Short CBC 01/18/18 Range/Units 02:53 WBC 24.6 H (4.3-11.1) K/mcL Hgb 14.0 (11.5-15.4) g/dL Hct 44.0 (35.3-44.9) % Plt Count 500 H (140-400) K/mcL Neutrophils # 11.8 H (1.6-8.9) K/mcL BMP 01/18/18 02:53 Sodium 137 Potassium 4.2 Chloride 104 Carbon Dioxide 18 L BUN 19 Creatinine 1.07 Glucose 466 H Calcium 8.9 Cardiac Enzymes 01/18/18 Range/Units 02:53 Troponin I 0.04 H* (< 0.04) ng/mL Liver Function 01/18/18 Range/Units 02:53 Total Bilirubin 0.3 (0.3-1.0) mg/dL Direct Bilirubin 0.0 (0.0-0.2) mg/dL AST 20 (13-39) Units/L ALT 19 (7-52) Units/L Alkaline Phosphatase 112 H (34-104) Units/L Albumin 4.1 (3.5-5.7) g/dL Urine 01/18/18 Range/Units 03:18 Urine Color Yellow (Yellow) Urine Clarity Cloudy A (Clear) Urine pH 6.0 (5.0-8.0) pH Units Ur Specific [place] 1.026 H (1.010-1.025) Urine Protein >=300 H (Neg-Trace) mg/dL Urine Glucose (UA) >=1000 H (Normal) mg/dL - ABG Interpretation ABG results: 01/18/18 03:25 ABG pH 7.02 L* ABG pCO2 87 H* ABG pO2 146 H ABG HCO3 23 ABG Total CO2 25 ABG O2 Saturation 98 ABG Base Excess -11 L Interpretation: respiratory acidosis - EKG Data -: EKG Interpreted by Myself EKG shows normal: sinus rhythm, axis, ST-T waves Rate: tachycardia - EKG Data Prior EKG available for review: no - Impressions ITS Impressions Chest X-Ray 01/18/18 03:06 IMPRESSION: Chest: 1. The endotracheal tube tip is 4.4 cm above the sergio. 2. Pulmonary edema. Abdomen: The enteric tube is in good position in the stomach. D/ / Rodríguez Walker MD / Rodríguez Walker MD Interpreting Provider: Rodríguez Walker MD X-Ray 01/18/18 03:06 IMPRESSION: Chest: 1. The endotracheal tube tip is 4.4 cm above the sergio. 2. Pulmonary edema. Abdomen: The enteric tube is in good position in the stomach. D/ / Rodríguez Walker MD / Rodríguez Walker MD Interpreting Provider: Rodríguez Walker MD - Assessment and plan (1) Acute respiratory failure with hypoxia and hypercapnia Current Visit: Yes Status: Acute Assessment and plan: Patient presented as 65% oxygen saturations via EMS and was 92% when arrival to the emergency department. Patient was barely responsive at was hypertensive and tachycardic and had a lot of secretions had difficult time protecting her airway so the emergency Department patient was successfully intubated. Patient was placed on the ventilator and sedated with propofol and fentanyl. Patient does have history of COPD. There is no signs of any wheezing but there is mild rhonchi on exam. Most likely the cause of the patient's acute risk story failure was due to flash pulmonary edema due to hypertensive crisis. Patient did have a lactic acidosis of 6.4 with an ABG of 7.02, 87, 146, 23, -11. CTA that was on the emergency department came back showing no definitive evidence of pulmonary embolism there is bilateral atelectasis and/or pneumonia and coronary artery disease Continue patient on ventilator. Patient given 40 mg IV Lasix in the emergency department we will continue to monitor output to see if more Lasix as needed. We will hold off on steroids as this does not seem like a COPD exacerbation as there is no wheezing. Nebs every 4 hours when necessary. Continue sedation with propofol, fentanyl, Versed. (2) Pulmonary edema Current Visit: Yes Status: Acute Assessment and plan: Pulmonary edema most likely is flash pulmonary edema due to possible pretensive crisis or from CHF. Patient was given IV Lasix in the emergency department. We will continue to monitor I's and O's to see if he gets better. Consider IV Lasix and phone or edema and exercise do not get better. Monitor I's and O's and weights. Qualifiers: Chronicity: acute Qualified Code(s): J81.0 - Acute pulmonary edema (3) Lactic acidosis Current Visit: Yes Status: Acute Assessment and plan: Lactic acidosis of 6.4 we will get a time and lactate later in the morning. Patient does have flash pulmonary edema so will not give IV fluids to normalize this. Bicarbonate was given in the emergency department to normalize the acidosis. Continue to monitor with repeat lactic acid. (4) Sepsis Current Visit: Yes Status: Acute Assessment and plan: Patient was tachycardic with a lactic acidosis and was acidotic there was no fever there was a leukocytosis. There is no source of infection at this time. Patient has not been hospitalized recently. Blood cultures and sputum cultures pending Prophylactic antibiotics of Levaquin/vancomycin. If no source found consider discontinuing Patient is adequately hydrated with normal looking urine will hold off on giving 30 mL/kg bolus of IV fluids at this time. Patient does not need pressors at this time To monitor the patient comes hypotensive consider pressors or bolus Qualifiers: Sepsis type: sepsis due to unspecified organism Qualified Code(s): A41.9 - Sepsis, unspecified organism (5) Congestive heart failure Current Visit: Yes Status: Acute Assessment and plan: Patient has no known history of CHF based on exam this could be a CHF exacerbation she is not a Lasix. Will get echocardiogram to the evaluate her ejection fraction. 40 mg's IV Lasix given in the emergency department Strict I's and O's and weights, Consider more Lasix if patient not improving Qualifiers: Heart failure type: unspecified Heart failure chronicity: unspecified Qualified Code(s): I50.9 - Heart failure, unspecified (6) Elevated troponin Current Visit: Yes Status: Acute Assessment and plan: Patient has elevated troponin of 0.04. Most likely due to demand ischemia from a hypertensive crisis. As well as the pulmonary edema. EKG was reviewed by myself showed sinus tachycardia at a rate of 140s. There is no acute ST changes no acute T-wave changes or any other signs of ischemia. We will continue to trend troponins. Will get echocardiogram (7) HTN (hypertension) Current Visit: Yes Status: Acute Assessment and plan: Patient was hypertensive when she first arrives nitroglycerin drip was started. Once patient was properly sedated her blood pressure dropped to 120 systolic suicide to stop the nitro drip. This most likely is hypertensive crisis causing the flash pulmonary edema. We will continue to monitor her hypertension while patient is sedated. Hold home hypertensive medications at this time. Qualifiers: Hypertension type: essential hypertension Qualified Code(s): I10 - Essential (primary) hypertension (8) DVT prophylaxis Current Visit: Yes Status: Acute Assessment and plan: Subcutaneous heparin - Time Spent With Patient Total time spent is greater than 50% in coordination of care (as documented) at patient's floor/unit and/or counseling patient: <Ion Person - Last Filed: 01/18/18 06:40> Date of Encounter: 01/18/18 Time of Encounter: 05:35 ROS unobtainable: due to endotracheal tube - Constitutional Vitals: Temp Pulse Resp BP Pulse Ox 97.4 F L 142 19 120/86 94 01/18/18 02:45 01/18/18 04:30 01/18/18 04:57 01/18/18 04:57 01/18/18 04:57 Exam: intubated and sedated; responds to painful and loud verbal stimuli - Head Head exam: Present: atraumatic, normal inspection - Eye Eye exam: Present: PERRL. Absent: scleral icterus - ENT ENT exam: Present: mucous membranes dry Additional comments: ETT/OG tube in place - Neck Neck exam general surgery: Present: full ROM, supple. Absent: tenderness, nuchal rigidity, thyromegaly - Respiratory Respiratory exam: Present: decreased breath sounds, rhonchi. Absent: chest wall tenderness, rales, respiratory distress, wheezes, tachypnea - Cardiovascular Cardiovascular exam: Present: RRR, +S1, +S2. Absent: diastolic murmur, systolic murmur - GI/Abdominal GI/Abdominal exam: Present: soft. Absent: hepatomegaly, splenomegaly, tenderness - Extremities Exam Extremities exam: Present: full ROM, warm, radial pulses palpable and symmetrical. Absent: calf tenderness, joint swelling, pedal edema, tenderness - Back Exam Back exam: Absent: CVA tenderness (L), CVA tenderness (R) - Neurological Exam Additional comments: intubated and sedated; responds to stimuli appropriately - Psychiatric Additional comments: unable to assess - Skin Skin exam: Present: dry, warm. Absent: rash Internal Med - H&P Results - Labs CBC & Chem 7: 01/18/18 02:53 01/18/18 02:53 - ABG Interpretation ABG results: 01/18/18 06:05 ABG pH 7.22 L D ABG pCO2 64 H D ABG pO2 82 L D ABG HCO3 26 ABG Total CO2 28 H ABG O2 Saturation 93 L ABG Base Excess -3 L Interpretation: respiratory acidosis - Diagnostic Studies Chest x-ray Status: image reviewed by me (pulmonary edema) - Attending Attestation I discussed the [place], past medical history, lab data, and exam findings with Dr. Saldana. I then saw and assessed patient independently in the ICU. I spoke with the ER physician and made some recommendations prior to transfer to ICU. Patient presented in acute respiratory failure and extremis requiring urgent intubation and stabilization. Report was that patient awoke in the middle of the night in acute respiratory distress with profound hypoxemia and reported chest pain. Given the presenting symptoms, profound lactic acidosis, and tachycardia, I had a high suspicion for PE based upon what was presented to me. I therefore recommended CT angiogram of the chest once the patient was stabilized. I reviewed and personally viewed her x-ray, and I agree it did appear to be consistent with pulmonary edema. Furthermore, her blood pressure was very high and uncontrolled. After reviewing her films, clinical presentation, and history, I agree patient likely presented with acute flash for edema with need for urgent stabilization and airway intervention. Her CT antigram was negative for PE. Clinically, she seems to have stabilized, and her blood pressures are now better controlled. On exam, she has no wheezing and just a few rhonchi. She has diuresed significantly with one dose of Lasix. She does not need IV fluids, but rather, she needs diuresis. Even though she meets sepsis criteria, I do NOT feel she needs aggressive fluid intervention. She needs diuresis because of her pulmonary edema. I am not convinced she is septic, but we will place on IV antibiotics to cover respiratory pathogens. Cultures have been drawn. We have no cardiac records on patient and we will therefore order echocardiogram and serial troponins. I suspect lactic acidosis is due to profound hypoxemia from flash pulmonary edema. We will trend her lactate and repeat blood gas. We will ask pulmonology to assume care in ICU for ongoing critical care management. Other than my comments above and noted physical exam findings, I agree with Dr. Kwaku Saldana's assessment and plan. Note, total of 52 minutes total care time spent assessing, treating patient, reviewing patient history, exam, and critical presentation. Further intervention as deemed necessary per hospitalist and/or devops engineer. - Time Spent With Patient Total time spent is greater than 50% in coordination of care (as documented) at patient's floor/unit and/or counseling patient:
[2018-01-18] MEDS ORDERED: Sodium Bicarbonate 50 MEQ/50 ML VIAL IVP ONE (05:06)
[2018-01-18] MEDS ORDERED: Naloxone 0.4 MG/ML INJ IVP PRN (05:30)
[2018-01-18] MEDS ORDERED: Lacri-Lube 3.5 GM TUBE BOTH EYES PRN (05:34)
[2018-01-18] MEDS ORDERED: D5% in Water 1,000 ML IVC PRN (05:37)
[2018-01-18] MEDS ORDERED: *HR* Dextrose 50 % in Water (Syg) 50 ML SYRINGE IVP PRN (05:37)
[2018-01-18] MEDS ORDERED: Dextrose Gel 15 GM/37.5 ML TUBE PO PRN ×2 (05:37)
[2018-01-18] MEDS ORDERED: Potassium Phosphate 44 MEQ in 0.9 % Sodium Chloride 250 ML IVPB PRN (05:47)
[2018-01-18] MEDS ORDERED: *HR* Heparin 5,000 UNIT/ML VIAL SQ SCH (06:00)
[2018-01-18] MEDS ORDERED: Vancomycin (wt based) 1,000 MG VIAL IVPB SCH (06:00)
[2018-01-18 06:09] LABS: ABG Base Excess -3 mEq/L (-2 to 3); ABG HCO3 26 mEq/L (21-27); ABG Oxygen Saturation 93 % (95-98); ABG PCO2 64 mmHg (35-45); ABG PH 7.22 pH Units (7.32-7.45); ABG PO2 82 mmHg (85-104); ABG TCO2 28 mEq/L (20-26); Blood Gas Modality PRVC; Blood Gas PEEP 5 cm H2O; Blood Gas Respiration Rate 18; Blood Gas VT 500 cc
[2018-01-18 06:26] LABS: Magnesium 1.7 mg/dL (1.6-2.6); Phosphorous 6.9 mg/dL (2.7-4.5)
[2018-01-18] MEDS: Insulin LISPRO 300 UNITS/3 ML VIAL SQ SCH ×2 (06:31→12:06)
[2018-01-18 07:06] LABS: VBG Ionized Calcium 1.02 mmol/L (1.15-1.35)
[2018-01-18] MEDS ORDERED: Dexmedetomidine HCl 400 MCG/100 ML MLS IVC ONE (07:07)
[2018-01-18] MEDS: Dexmedetomidine HCl 400 MCG/100 ML MLS IVC SCH ×3 (08:24→22:38)
[2018-01-18] MEDS: Levofloxacin 750 MG/150 ML 750 MG/150 ML BAG IVPB SCH (08:25)
[2018-01-18] MEDS: Lacri-Lube 3.5 GM TUBE BOTH EYES SCH ×4 (08:25→19:59)
[2018-01-18] MEDS: Chlorhexidine Rinse 15 ML MOUTHWASH MM SCH ×2 (08:25→19:59)
[2018-01-18] MEDS: Pantoprazole 40 MG VIAL IVP SCH (08:26)
[2018-01-18] MEDS ORDERED: Ringers Solution, Lactated 500 ML IVC ONE (08:45)
[2018-01-18] MEDS ORDERED: Aminoglycoside Consult 1 EACH MC ONE (08:56)
[2018-01-18] MEDS ORDERED: Vancomycin 1,750 MG in 0.9 % Sodium Chloride 250 ML IVPB SCH (09:00)
[2018-01-18] MEDS ORDERED: *HR* Rocuronium Bromide 100 MG/10 ML VIAL IVC ONE (09:06)
[2018-01-18] MEDS ORDERED: *HR* Etomidate 40 MG/20 ML VIAL IVP ONE (09:06)
--- NOTE | 2018-01-18 09:34 | Pulmonology Consult Note ---
<Obey Adamson W - Last Filed: 01/18/18 10:43> Date of Encounter: 01/18/18 Medications and Allergies Atorvastatin Calcium [Lipitor] 80 mg PO HS 01/18/18 [History] Budesonide Neb [Pulmicort Neb] 2 ml IH DAILY 01/18/18 [History] Clopidogrel [Plavix] 75 mg PO DAILY 01/18/18 [History] Escitalopram [Lexapro] 10 mg PO DAILY 01/18/18 [History] Flurbiprofen [Flurbiprofen] 100 mg PO DAILY 01/18/18 [History] Gabapentin [Neurontin] 300 mg PO TID 01/18/18 [History] Glimepiride [Amaryl] 4 mg PO DAILY 01/18/18 [History] Insulin NPH, HUMAN [HumuLIN N] 12 units SQ QPM 01/18/18 [History] Insulin NPH, HUMAN [HumuLIN N] 20 units SQ QAM 01/18/18 [History] Metformin HCl [Glucophage] 1,000 mg PO DAILY 01/18/18 [History] Metoprolol Succinate [Toprol Xl] 100 mg PO DAILY 01/18/18 [History] Omeprazole [PriLOSEC] 40 mg PO DAILY 01/18/18 [History] 3 Allergy/AdvReac Type Severity Reaction Status Date / Time enalaprilat [From Vasotec] Allergy Cough Verified 01/18/18 04:49 Nickel Allergy See Verified 01/18/18 04:49 Comments Beta-Blockers AdvReac Cough Verified 01/18/18 04:49 (Beta-Adrenergic Bloc All Systems: The remainder of the systems were reviewed and are negative Physical Examination Vital Signs: Vital Signs, Last 4 Hours Temp Pulse Resp BP Pulse Ox 01/18/18 09:00 84 24 76/51 95 01/18/18 08:00 96.9 F L 89 20 82/50 95 01/18/18 07:45 18 106/60 96 01/18/18 07:34 96.9 F L 01/18/18 07:00 98 18 106/60 96 01/18/18 06:00 96.7 F L 102 20 79/46 94 Ventilator Settings Ventilator Settings: Ventilator Settings, Last 8 Hours Ventilator Mode A/C Ventilator Mode A/C Ventilator Mode VC+ Ventilator Mode VC+ Ventilator Tidal Volume 500 Setting Ventilator Tidal Volume 500 Setting Ventilator Tidal Volume 500 Setting Ventilator Tidal Volume 500 Setting Ventilator Tidal Volume 500 Setting Ventilator Respiratory Rate 20 Setting Ventilator Respiratory Rate 18 Setting Ventilator Respiratory Rate 18 Setting Ventilator Respiratory Rate 18 Setting Ventilator Respiratory Rate 18 Setting Actual Respiratory Rate 25 Actual Respiratory Rate 20 Actual Respiratory Rate 19 Actual Respiratory Rate 18 Actual Respiratory Rate 20 Positive End Expiratory 10 Pressure Positive End Expiratory 10 Pressure Positive End Expiratory 5 Pressure Positive End Expiratory 10 Pressure Positive End Expiratory 5 Pressure Positive End Expiratory 5 Pressure Peak Inspiratory Airway 22 Pressure Peak Inspiratory Airway 29 Pressure Peak Inspiratory Airway 23 Pressure Peak Inspiratory Airway 27 Pressure Peak Inspiratory Airway 23 Pressure Results - Laboratory Findings CBC and BMP: 01/18/18 02:53 01/18/18 02:53 ABG ABG pH 7.34 pH Units (7.32-7.45) D 01/18/18 09:26 ABG pCO2 44 mmHg (35-45) D 01/18/18 09:26 ABG pO2 73 mmHg (85-104) L 01/18/18 09:26 ABG O2 Saturation 93 % (95-98) L 01/18/18 09:26 PT/INR, D-dimer PT 10.9 Seconds (9.4-12.1) 01/18/18 02:53 Abnormal lab findings: Abnormal lab results WBC 24.6 K/mcL (4.3-11.1) H 01/18/18 02:53 RBC 5.04 M/mcL (3.82-4.97) H 01/18/18 02:53 MCH 27.8 pg (28.0-33.3) L 01/18/18 02:53 RDW 14.9 % (11.5-14.5) H 01/18/18 02:53 Plt Count 500 K/mcL (140-400) H 01/18/18 02:53 Immature Gran % 4.7 % (0-4) H 01/18/18 02:53 Neutrophils # 11.8 K/mcL (1.6-8.9) H 01/18/18 02:53 Lymphocytes # 8.7 K/mcL (0.6-4.6) H 01/18/18 02:53 Monocytes # 2.0 K/mcL (0.0-1.3) H 01/18/18 02:53 Basophils # 0.3 K/mcL (0.0-0.2) H 01/18/18 02:53 Nucleated RBCs/100 WBC 0.1 /100 WBC (0) H 01/18/18 02:53 Platelet Estimate Increased (Normal) H 01/18/18 02:53 ABG pO2 73 mmHg (85-104) L 01/18/18 09:26 ABG O2 Saturation 93 % (95-98) L 01/18/18 09:26 Carbon Dioxide 18 mEq/L (23-29) L 01/18/18 02:53 Est GFR (Non-Af Amer) 51 (> 60) L 01/18/18 02:53 Glucose 466 mg/dL (70-105) H 01/18/18 02:53 POC Glucose 391 mg/dL (70-99) H 01/18/18 05:42 Calculated Osmolality 307 (280-300) H 01/18/18 02:53 Lactic Acid 2.5 mmol/L (0.5-2.2) H 01/18/18 06:55 Venous Ioniz Calcium 1.02 mmol/L (1.15-1.35) L 01/18/18 07:03 Phosphorus 6.9 mg/dL (2.7-4.5) H 01/18/18 05:54 Alkaline Phosphatase 112 Units/L (34-104) H 01/18/18 02:53 Troponin I 0.36 ng/mL (< 0.04) H* 01/18/18 06:55 B-Natriuretic Peptide 243 pg/mL (Less than 100) H 01/18/18 02:53 Urine Clarity Cloudy (Clear) A 01/18/18 03:18 Ur Specific [place] 1.026 (1.010-1.025) H 01/18/18 03:18 Urine Protein >=300 mg/dL (Neg-Trace) H 01/18/18 03:18 Urine Glucose (UA) >=1000 mg/dL (Normal) H 01/18/18 03:18 Urine Blood Small (Negative) H 01/18/18 03:18 Urine Microscopic WBC 50-100 per hpf (0-3) H 01/18/18 03:18 Ur Squamous Epith Cells Many per lpf (None-Few) H 01/18/18 03:18 - Clinical Findings Intake & Output: Intake & Output 05/13/18 05/14/18 05/14/18 23:59 07:59 15:59 Intake Total 138.8 / 154.5 Output Total 50 / 50 Balance 88.8 / 104.5 Consult Discharge Plan - Plan Referrals: Jann Payne MD [Primary Care Provider] - - Attending Attestation I examined this patient and my medical decision-making was reviewed with the Resident Physician. I agree with the documented findings, disposition and treatment plan as described except to the extent set forth below. We independently had [id number] contact with the patient I spent 50min of Critical Care time with this patient. It involved decision making of high complexity to assess, manipulate, and support vital organ system failure and/or to prevent further life threatening deterioration of the patient' s condition. The time involved in the performance of separately reportable procedures was not counted toward critical care time. Patient seen and examined at bedside Labs, radiology, chart personally reviewed. Management was reviewed during multidisciplinary critical care rounds. 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 Agitated at times. will use precedex and fentanyl for goal juárez 3-4. Moved all ext's with decrease in sedation Pulm: Acute hypoxic hypercapnic respiratory failure likely s/t to hydrostatic pulmonary edema.and ATx. ?PNA. I have adjusted her ventilator to decrease tidal volume more in line with 60 mL per KG ideal body weight and increased PEEP to help accommodate for cardiogenic pulmonary edema and atelectasis. Last ABG shows acceptable gas exchange and overall improving. Not a candidate for spontaneous breathing trial today because of active cardiac ischemia and Fio2 requirements Cards: Accelerated hypertension/hypertensive emergency blood pressure on admission was 250/110 unfortunately when I was consulted and entered the patient 's room her blood pressure was already systolic 80s over 60s with a map in the 60s. I suspect this is related to sedative effect and diuresis in the emergency department I have attempted to decrease her sedation by stopping propofol and switching to Precedex and decreased the amount of fentanyl needed. She has troponin elevation which is up trending which is concerning for ACS given that there is a reduction in ejection fraction based upon preliminary echocardiogram formal cardiology consultation has been requested and we will initiate ACS protocol including heparin and aspirin she is not a candidate for beta cata now because of hypotension. Likely have to start vasopressor because of precipitous drop in blood pressure to maintain cerebral perfusion. Hypotension could also be related cardiogenic shock although I feel this is less likely. The patient had a lactic acidosis on admission which was likely related to her hypertensive crisis although she had an elevated white count I feel that this is more of a stress response and there is no convincing evidence of pneumonia or other infectious process at this point. Given that she was displaying evidence of cardiogenic pulmonary edema on admission further fluid administration had been withheld for this reason. I will hold further diuretic at this time because of hypotension but I am not inclined to aggressively volume resuscitate especially given the concerning findings of reduced ejection fraction pending official read from the tank erector. Encouragingly lactate has down trended to near normal value. FEN-GI: Nothing by mouth for now GI prophylaxis given Renal: Continue to monitor urine output and daily serum creatinine; she is at high risk for kidney injury because of fluctuations in pressure and concern for heart failure ID: She is being covered with antimicrobials for possible pneumonia with planned to de-escalate over the next 24 hours if cultures remain negative as I have a low suspicion for acute infection Heme/Onc: DVT prophylaxis given Endo: Glucose Monitored Integ/MSK: Skin Care per routine ICU Nursing Protocol to prevent ulcers. Lines: All lines examined without evidence of infection : Dispo: Remain in ICU for critical illness CODE: Full <ShantevinayFrancisco Javier - Last Filed: 01/18/18 15:16> Date of Encounter: 01/18/18 Time of Encounter: 09:34 Assessment and Plan (1) Acute respiratory failure with hypoxia and hypercapnia Current Visit: Yes Status: Acute - Acute respiratory failure with hypoxia hypercapnia possibly secondary to pulmonary edema, ACS vs less likely pneumonia - ABG on admission was uncompensated respiratory acidosis, pH 7.02, CO2 87. Improved to pH 7.34, CO2 44 - CTA on emergency room shows bilateral atelectasis vs pneumonia - intubated in emergency room for respiratory distress, still requiring ventilator support - Met SIRS criteria, however less likely infectious. WBC of 24.6, BNP 243. Vanc and Levaquin were started in emergency department - Lactic acid of 6.4, trended down to 2.2. Likely a result of hypoxemia - Troponin of 0.04/0.36/2.22 - Echo on 01/18/18 shows EF 30-35%, global wall dysfunction, mild diastolic dysfunction Plan - Continue mechanical ventilation - Continue vancomycin and Levaquin day #1, de-escalate as able - Attempt to diuresis as blood pressure allows - Monitor daily labs (2) Acute coronary syndrome Current Visit: Yes Status: Suspected - Patient reportedly woke from sleep short of breath - Troponin increasing with most recent 2.22 (0.04/0.36 previous) - Cardiology consult, appreciate recommendations - Echo shows EF 30-35%, global LV dysfunction. No previous to compare. - EKG showed SVT with a rate of 157, poor R wave progression, no ST changes. Plan - Heparin gtt started, ASA given - Defer to cardiology recommendations. (3) Septic shock Current Visit: Yes Status: Suspected - On presentation, patient did meet SIRS criteria with tachycardia, tachypnea, elevated WBC - Patient is currently requiring vasopressor support and had a lactic acid of 6.4 which is up and down trended to 2.2 - Received 500 mL bolus of lactated Ringer's, did not receive resuscitation fluids as she is suspected volume overload - Less likely that this is septic shock. Signs and symptoms are more likely day secondary to congestive heart failure exacerbation with prolonged hypoxemia - Started on vancomycin and Levaquin in emergency room, will continue and monitor Plan - Continue ABx as above - Continue pressor support (4) Pulmonary edema Current Visit: Yes Status: Acute - As above for acute respiratory failure - No reported hx of CHF, however echo today showed combined CHF Qualifiers: Chronicity: acute Qualified Code(s): J81.0 - Acute pulmonary edema (5) Congestive heart failure Current Visit: Yes Status: Acute As above for pulmonary edema Qualifiers: Heart failure type: combined systolic and diastolic Heart failure chronicity: acute on chronic Qualified Code(s): I50.43 - Acute on chronic combined systolic (congestive) and diastolic (congestive) heart failure (6) Hyperkalemia Current Visit: Yes Status: Acute - Potassium was recently 5.8 - Increased from 4.2 on presentation - Kidney function has mildly worsened since presentation, does not meet BETH criteria - unclear etiology at this time. 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 Qualifiers: Hypertension type: essential hypertension Qualified Code(s): I10 - Essential (primary) hypertension (10) NSTEMI (non-ST elevated myocardial infarction) Current Visit: Yes Status: Acute - As above per ACS (11) DVT prophylaxis Current Visit: Yes Status: Acute On heparin drip as above for suspected ACS History of Present Illness Consult date: 01/18/18 Requesting physician: Kwaku Saldana Reason for consult: hypoxemia Chief complaint: Distress in breathing Past Med Surg Social Fam HX - Past Medical History Medical history: diabetes, hypertension - Social History Smoking Status: Never smoker Smokeless Tobacco Status: No Alcohol use: none All Systems: The remainder of the systems were reviewed and are negative Physical Examination Vital Signs: Vital Signs, Last 4 Hours Temp Pulse Resp BP Pulse Ox 01/18/18 09:00 84 24 76/51 95 01/18/18 08:00 96.9 F L 89 20 82/50 95 01/18/18 07:45 18 106/60 96 01/18/18 07:34 96.9 F L 01/18/18 07:00 98 18 106/60 96 01/18/18 06:00 96.7 F L 102 20 79/46 94 Ventilator Settings Ventilator Settings: Ventilator Settings, Last 8 Hours Ventilator Mode A/C Ventilator Mode A/C Ventilator Mode VC+ Ventilator Mode VC+ Ventilator Tidal Volume 500 Setting Ventilator Tidal Volume 500 Setting Ventilator Tidal Volume 500 Setting Ventilator Tidal Volume 500 Setting Ventilator Tidal Volume 500 Setting Ventilator Respiratory Rate 20 Setting Ventilator Respiratory Rate 18 Setting Ventilator Respiratory Rate 18 Setting Ventilator Respiratory Rate 18 Setting Ventilator Respiratory Rate 18 Setting Actual Respiratory Rate 25 Actual Respiratory Rate 20 Actual Respiratory Rate 19 Actual Respiratory Rate 18 Actual Respiratory Rate 20 Positive End Expiratory 10 Pressure Positive End Expiratory 10 Pressure Positive End Expiratory 5 Pressure Positive End Expiratory 10 Pressure Positive End Expiratory 5 Pressure Positive End Expiratory 5 Pressure Peak Inspiratory Airway 22 Pressure Peak Inspiratory Airway 29 Pressure Peak Inspiratory Airway 23 Pressure Peak Inspiratory Airway 27 Pressure Peak Inspiratory Airway 23 Pressure Results - Laboratory Findings CBC and BMP: 01/18/18 11:35 01/18/18 11:00 ABG ABG pH 7.22 pH Units (7.32-7.45) L D 01/18/18 06:05 ABG pCO2 64 mmHg (35-45) H D 01/18/18 06:05 ABG pO2 82 mmHg (85-104) L D 01/18/18 06:05 ABG O2 Saturation 93 % (95-98) L 01/18/18 06:05 PT/INR, D-dimer PT 10.9 Seconds (9.4-12.1) 01/18/18 02:53 Abnormal lab findings: Abnormal lab results WBC 24.6 K/mcL (4.3-11.1) H 01/18/18 02:53 RBC 5.04 M/mcL (3.82-4.97) H 01/18/18 02:53 MCH 27.8 pg (28.0-33.3) L 01/18/18 02:53 RDW 14.9 % (11.5-14.5) H 01/18/18 02:53 Plt Count 500 K/mcL (140-400) H 01/18/18 02:53 Immature Gran % 4.7 % (0-4) H 01/18/18 02:53 Neutrophils # 11.8 K/mcL (1.6-8.9) H 01/18/18 02:53 Lymphocytes # 8.7 K/mcL (0.6-4.6) H 01/18/18 02:53 Monocytes # 2.0 K/mcL (0.0-1.3) H 01/18/18 02:53 Basophils # 0.3 K/mcL (0.0-0.2) H 01/18/18 02:53 Nucleated RBCs/100 WBC 0.1 /100 WBC (0) H 01/18/18 02:53 Platelet Estimate Increased (Normal) H 01/18/18 02:53 ABG pH 7.22 pH Units (7.32-7.45) L D 01/18/18 06:05 ABG pCO2 64 mmHg (35-45) H D 01/18/18 06:05 ABG pO2 82 mmHg (85-104) L D 01/18/18 06:05 ABG Total CO2 28 mEq/L (20-26) H 01/18/18 06:05 ABG O2 Saturation 93 % (95-98) L 01/18/18 06:05 ABG Base Excess -3 mEq/L (-2 to 3) L 01/18/18 06:05 Carbon Dioxide 18 mEq/L (23-29) L 01/18/18 02:53 Est GFR (Non-Af Amer) 51 (> 60) L 01/18/18 02:53 Glucose 466 mg/dL (70-105) H 01/18/18 02:53 POC Glucose 391 mg/dL (70-99) H 01/18/18 05:42 Calculated Osmolality 307 (280-300) H 01/18/18 02:53 Lactic Acid 2.5 mmol/L (0.5-2.2) H 01/18/18 06:55 Venous Ioniz Calcium 1.02 mmol/L (1.15-1.35) L 01/18/18 07:03 Phosphorus 6.9 mg/dL (2.7-4.5) H 01/18/18 05:54 Alkaline Phosphatase 112 Units/L (34-104) H 01/18/18 02:53 Troponin I 0.36 ng/mL (< 0.04) H* 01/18/18 06:55 B-Natriuretic Peptide 243 pg/mL (Less than 100) H 01/18/18 02:53 Urine Clarity Cloudy (Clear) A 01/18/18 03:18 Ur Specific [place] 1.026 (1.010-1.025) H 01/18/18 03:18 Urine Protein >=300 mg/dL (Neg-Trace) H 01/18/18 03:18 Urine Glucose (UA) >=1000 mg/dL (Normal) H 01/18/18 03:18 Urine Blood Small (Negative) H 01/18/18 03:18 Urine Microscopic WBC 50-100 per hpf (0-3) H 01/18/18 03:18 Ur Squamous Epith Cells Many per lpf (None-Few) H 01/18/18 03:18 - Clinical Findings Intake & Output: Intake & Output 01/17/18 01/18/18 01/18/18 23:59 07:59 15:59 Intake Total 138.8 / 154.5 Output Total 50 / 50 Balance 88.8 / 104.5
[2018-01-18 09:35] LABS: ABG Base Excess -2 mEq/L (-2 to 3); ABG HCO3 24 mEq/L (21-27); ABG Oxygen Saturation 93 % (95-98); ABG PCO2 44 mmHg (35-45); ABG PH 7.34 pH Units (7.32-7.45); ABG PO2 73 mmHg (85-104); ABG TCO2 25 mEq/L (20-26); Blood Gas Modality VC; Blood Gas PEEP 10 cm H2O; Blood Gas Respiration Rate 20; Blood Gas VT 500 cc
[2018-01-18] MEDS ORDERED: *HR* Heparin 5,000 UNIT/ML VIAL IVP PRN ×2 (11:35)
[2018-01-18] MEDS ORDERED: *HR* Heparin 5,000 UNIT/ML VIAL IVP ONE (11:35)
--- NOTE | 2018-01-18 11:40 | Procedure Note ---
<Francisco Javier Robledo - Last Filed: 01/18/18 13:10> Date of procedure: 01/18/18 Pre-op diagnosis: Hypotension Post-op diagnosis: same Procedure: Procedure Note: Central Venous Catheter Insertion Indication: Persistent hypotension Attending Physician: Dr. Gerardo Adamson Sea Air Land Officer: Dr. Francisco Javier Robledo Indication: This is a 67 year-old female with Acute respiratory failure, hypotension . Consent: Family was unable to be reached and procedure was performed emergently. Technique: A time out was preformed identifying the correct procedure, the correct location with the nursing staff. The right neck was prepped with 2% chlorhexidine and draped with a full length sterile sheet in the usual fashion. The right internal jugular vein was accessed under ultrasound guidance with an 18 gauge thin wall needle. A triple lumen was inserted via the seldinger technique. Blood was withdrawn from all lumens and flushed with normal saline. The catheter was sutured in place and a sterile dressing was applied over the site prior to removal of drapes. The patient tolerated the procedure well and there were no complications. Chest x ray: No signs of pneumothorax EBL: 5 mL Complication: None Anesthesia: IV sedation Surgeon: Francisco Javier Robledo Was there an rehabilitation assistant present: Yes Drying Frame Operator: Fernando Fox Estimated blood loss (cc): 5 Specimen: none Pathology: none sent Condition: stable Disposition: ICU <Obey Adamson W - Last Filed: 01/18/18 14:54> - Attending Attestation I examined this patient and my medical decision-making was reviewed with the Resident Physician. I agree with the documented findings, disposition and treatment plan as described except to the extent set forth below. I supervised Dr. Robledo performing this procedure was done skillfully I was available for the entirety of the procedure
[2018-01-18] MEDS: Norepinephrine 4 MG in D5% in Water 250 ML IVC SCH (12:05)
[2018-01-18 12:29] LABS: Hematocrit 33.8 % (35.3-44.9); Hemoglobin 10.6 g/dL (11.5-15.4); Mean Corpuscular HGB Conc 31.4 g/dL (31.6-35.5); Mean Corpuscular Hemoglobin 26.8 pg (28.0-33.3); Mean Corpuscular Volume 85.6 fL (83.0-100.0); Mean Platelet Volume 10.5 fL (9.4-12.4); Platelet Count 290 K/mcL (140-400); Red Blood Count 3.95 M/mcL (3.82-4.97); Red Cell Distribution Width 14.9 % (11.5-14.5)
[2018-01-18] MEDS: Heparin 25,000 UNIT/500 ML D5W 25,000 UNIT/500 ML BAG IVC SCH (12:31)
[2018-01-18 12:35] LABS: INR 1.1; Prothrombin Time 11.6 Seconds (9.4-12.1)
[2018-01-18 12:37] LABS: Activated Partial Thrombo Time 25.1 Seconds (26.0-36.0)
[2018-01-18] MEDS: Aspirin 81 MG TAB.CHEW PO SCH (12:52)
[2018-01-18 13:12] LABS: Calcium 8.2 mg/dL (8.6-10.3); Potassium 5.8 mEq/L (3.5-5.1)
--- NOTE | 2018-01-18 13:33 | Cardiology Consult Note ---
Date of Encounter: 01/18/18 Time of Encounter: 13:30 Assessment and Plan (1) NSTEMI (non-ST elevated myocardial infarction) Current Visit: Yes Status: Acute Extensive hx of CAD with elevating trops and resp failure s/p intubation. EF 35 % on ECHO, LHC reasonable for ongoing cardiac injury and rising trops. WBC improved with no source for sepsis on emperic Abx, discussed with PCCM Discussion w patient/family: The assessment and plan as outlined above was discussed with the patient and/or family members who expressed understanding and agreement. All questions were answered. Thank you for involving us in the care of your patient. Please call with any questions. History of Present Illness Consult date: 01/18/18 Consult reason: NSTEMI Chief complaint: Cant Breath History of present illness: Ms. Michaels is a 67 year old female presents with resp failure currently intubated on the Vent. Initially complained of not able to breath. Troponins continue to climb currently at 2.22 from .36. She has an extensive hx of CAD s/ p PCI in the past with 8 STENTS. EKG with inferior changes suggestive of ischemia. History not able to obtain, no family members at bedside. Past Med Surg Social Fam HX - Past Medical History Medical history: diabetes, hypertension - Social History Smoking Status: Never smoker Smokeless Tobacco Status: No Alcohol use: none Medications and Allergies Atorvastatin Calcium [Lipitor] 80 mg PO HS 01/18/18 [History] Budesonide Neb [Pulmicort Neb] 2 ml IH DAILY 01/18/18 [History] Clopidogrel [Plavix] 75 mg PO DAILY 01/18/18 [History] Escitalopram [Lexapro] 10 mg PO DAILY 01/18/18 [History] Flurbiprofen [Flurbiprofen] 100 mg PO DAILY 01/18/18 [History] Gabapentin [Neurontin] 300 mg PO TID 01/18/18 [History] Glimepiride [Amaryl] 4 mg PO DAILY 01/18/18 [History] Insulin NPH, HUMAN [HumuLIN N] 12 units SQ QPM 01/18/18 [History] Insulin NPH, HUMAN [HumuLIN N] 20 units SQ QAM 01/18/18 [History] Metformin HCl [Glucophage] 1,000 mg PO DAILY 01/18/18 [History] Metoprolol Succinate [Toprol Xl] 100 mg PO DAILY 01/18/18 [History] Omeprazole [PriLOSEC] 40 mg PO DAILY 01/18/18 [History] 3 Allergy/AdvReac Type Severity Reaction Status Date / Time enalaprilat [From Vasotec] Allergy Cough Verified 01/18/18 04:49 Nickel Allergy See Verified 01/18/18 04:49 Comments Beta-Blockers AdvReac Cough Verified 01/18/18 04:49 (Beta-Adrenergic Bloc All Systems Review: The remainder of the systems were reviewed and are negative Physical Examination Vital Signs, Last 4 Hours Temp Pulse Resp BP Pulse Ox 01/18/18 13:00 89 20 128/73 98 01/18/18 12:00 98.5 F 84 20 73/54 98 01/18/18 11:43 20 87/51 97 01/18/18 11:00 98.5 F 81 20 74/44 97 01/18/18 10:00 82 20 87/51 95 General: Conversant, No Apparent Distress HEENT: Atraumatic, Normocephaly, Mucus Membranes Moist Neck: No JVD, Normal carotid pulses Cardiac: Reg Rate and Rhythm, Normal S1 and S2, No Murmur Lungs: Normal Breath Sounds, No Wheeze, Rales, Rhonchi Neuro: Alert and responsive, No focal deficits noted Abdomen: Soft, Non-Tender Skin: No rashes noted on visualized skin Musculoskeletal: No Chest Wall Tenderness Extremities: No Clubbing, No Cyanosis, No Edema, Normal Pulses Results 01/18/18 11:35 01/18/18 11:00 Lab Results 01/18/18 01/18/18 01/18/18 05:54 06:55 11:00 WBC Hgb Hct Plt Count INR APTT Sodium Potassium Chloride Carbon Dioxide BUN Creatinine Glucose Calcium Magnesium 1.7 Troponin I 0.36 H* 2.22 H* 01/18/18 01/18/18 01/18/18 11:00 11:00 11:35 WBC 12.3 H Hgb 10.6 L D Hct 33.8 L Plt Count 290 INR APTT Sodium 135 L Potassium 5.8 H D Chloride 105 Carbon Dioxide 26 BUN 25 H Creatinine 1.27 H Glucose 344 H Calcium 8.2 L Magnesium 2.0 Troponin I 01/18/18 11:35 WBC Hgb Hct Plt Count INR 1.1 APTT 25.1 L Sodium Potassium Chloride Carbon Dioxide BUN Creatinine Glucose Calcium Magnesium Troponin I Consult Discharge Plan - Plan Referrals: Jann Payne MD [Primary Care Provider] -
[2018-01-18] MEDS: Insulin Human Regular 100 UNIT in 0.9 % Sodium Chloride 100 ML IVC SCH (15:01)
--- NOTE | 2018-01-18 17:19 | Event Note ---
Date of Encounter: 01/18/18 Time of Encounter: 17:17 Spoke with patient's nephew, who is next of kin. He states that patient's previous wishes are to be a DNR CCA. He is not sure on the exact medical wishes , however he states that she does have paperwork at her house. He is okay if patient needs to undergo a left heart catheterization, but states that she does not want be on the ventilator for prolonged period. CODE STATUS will be changed to DNR CCA at this time.
[2018-01-18 18:07] LABS: Potassium 4.2 mEq/L (3.5-5.1)
[2018-01-18] MEDS ORDERED: Acetaminophen IV 1,000 MG/100 ML INFUS..BTL IVPB ONE (18:50)
[2018-01-18 19:10] LABS: BUN/Creatinine Ratio 22 (6-26); Blood Urea Nitrogen 22 mg/dL (8-23); Calcium 8.7 mg/dL (8.6-10.3); Carbon Dioxide 24 mEq/L (23-29); Chloride 106 mEq/L (98-107); Glucose 272 mg/dL (70-105); Osmolality,Calculated 299 (280-300); Sodium 138 mEq/L (136-145); eGFR For African Americans > 60 (> 60); eGFR For Non-African Americans 56 (> 60)
[2018-01-19] MEDS: Piperacillin/Tazobactam 3.375 GM in 0.9 % Sodium Chloride Mini Bag 100 ML IVPB SCH ×4 (00:07→23:26)
[2018-01-19] MEDS: Nitroglycerin 25 MG/250 ML INFUS..BTL IVC SCH ×2 (00:08→23:22)
[2018-01-19] MEDS: Lacri-Lube 3.5 GM TUBE BOTH EYES SCH ×7 (00:08→23:23)
[2018-01-19] MEDS: FentaNYL (PF) 1,000 MCG in 0.9 % Sodium Chloride 80 ML IVC SCH ×5 (00:29→21:16)
[2018-01-19] MEDS: Dexmedetomidine HCl 400 MCG/100 ML MLS IVC SCH ×3 (02:19→23:19)
[2018-01-19] MEDS ORDERED: *HR* Atropine Sulfate 1 MG/10 ML SYRINGE ONE (04:36)
[2018-01-19 05:30] LABS: ABG Base Excess 1 mEq/L (-2 to 3); ABG HCO3 25 mEq/L (21-27); ABG Oxygen Saturation 94 % (95-98); ABG PCO2 38 mmHg (35-45); ABG PH 7.43 pH Units (7.32-7.45); ABG PO2 69 mmHg (85-104); ABG TCO2 27 mEq/L (20-26); Blood Gas Modality VC; Blood Gas PEEP 8 cm H2O; Blood Gas Respiration Rate 20; Blood Gas VT 500 cc
[2018-01-19 06:12] LABS: Basophils # 0.1 K/mcL (0.0-0.2); Basophils % 0.4 %; Eosinophils # 0.2 K/mcL (0.0-0.6); Eosinophils % 1.2 %; Hemoglobin 11.5 g/dL (11.5-15.4); Immature Granulocytes % 0.9 % (0-4); Lymphocytes # 2.4 K/mcL (0.6-4.6); Lymphocytes % 14.6 %; Mean Corpuscular HGB Conc 32.9 g/dL (31.6-35.5); Mean Corpuscular Hemoglobin 27.7 pg (28.0-33.3); Mean Corpuscular Volume 84.3 fL (83.0-100.0); Mean Platelet Volume 10.7 fL (9.4-12.4); Monocytes # 1.4 K/mcL (0.0-1.3); Monocytes % 8.2 %; Neutrophils # 12.3 K/mcL (1.6-8.9); Nucleated Red Blood Cells 0.1 /100 WBC (0); Platelet Count 295 K/mcL (140-400); Red Blood Count 4.15 M/mcL (3.82-4.97); Red Cell Distribution Width 15.2 % (11.5-14.5); Segmented Neutrophils % 74.7 %
[2018-01-19 06:13] LABS: VBG Ionized Calcium 1.13 mmol/L (1.15-1.35)
[2018-01-19 06:17] LABS: Magnesium 1.9 mg/dL (1.6-2.6); Phosphorous 3.6 mg/dL (2.7-4.5)
[2018-01-19 06:21] LABS: BUN/Creatinine Ratio 22 (6-26); Blood Urea Nitrogen 23 mg/dL (8-23); Calcium 8.8 mg/dL (8.6-10.3); Carbon Dioxide 26 mEq/L (23-29); Chloride 106 mEq/L (98-107); Glucose 171 mg/dL (70-105); Osmolality,Calculated 296 (280-300); Potassium 3.7 mEq/L (3.5-5.1); Sodium 139 mEq/L (136-145); eGFR For African Americans > 60 (> 60); eGFR For Non-African Americans 54 (> 60)
--- NOTE | 2018-01-19 07:02 | Electrocardiograph Report ---
[address] [address] Test Date: 2018-01-18 Pat Name: Renetta Michaels Department: 102 Room: 12 Gender: F Insurance Processing Clerk: : [id number] Requested By: Yuniel Pereira Order Number: [id number] Reading MD: Almas Antunez Measurements Intervals [place] Rate: 157 P: PA: 0 QRS: 9 QRSD: 96 T: 72 QT: 298 QTc: 386 Interpretive Statements SUPRAVENTRICULAR TACHYCARDIA LOW QRS VOLTAGE IN PRECORDIAL LEADS POOR R WAVE PROGRESSION Electronically Signed On 01-19-2018 7:01:09 EDT by Almas Antunez
[2018-01-19] MEDS: Levofloxacin 750 MG/150 ML 750 MG/150 ML BAG IVPB SCH (07:42)
[2018-01-19] MEDS: Aspirin 81 MG TAB.CHEW PO SCH (07:43)
[2018-01-19] MEDS: Chlorhexidine Rinse 15 ML MOUTHWASH MM SCH ×2 (07:43→20:17)
[2018-01-19] MEDS: Pantoprazole 40 MG VIAL IVP SCH (07:45)
[2018-01-19] MEDS: Heparin 25,000 UNIT/500 ML D5W 25,000 UNIT/500 ML BAG IVC SCH ×2 (08:10→22:38)
--- NOTE | 2018-01-19 08:26 | Pulmonology Progress Note ---
<RoxiefranciscoObey hseih W - Last Filed: 01/19/18 10:29> Date of Encounter: 01/19/18 Objective PUL Vital signs: Last Vital Signs Temp 98.4 F 01/19/18 08:02 Pulse 65 01/19/18 09:00 Resp 20 01/19/18 09:40 BP 94/52 01/19/18 09:00 Pulse Ox 94 01/19/18 09:40 Ventilator Settings Ventilator Settings: Ventilator Settings, Last 8 Hours Ventilator Mode VC+ Ventilator Mode VC+ Ventilator Mode VC+ Ventilator Mode VC+ Ventilator Mode VC+ Ventilator Mode VC+ Ventilator Mode VC+ Ventilator Tidal Volume 500 Setting Ventilator Tidal Volume 500 Setting Ventilator Tidal Volume 500 Setting Ventilator Tidal Volume 500 Setting Ventilator Tidal Volume 500 Setting Ventilator Tidal Volume 500 Setting Ventilator Tidal Volume 500 Setting Ventilator Tidal Volume 500 Setting Ventilator Tidal Volume 500 Setting Ventilator Tidal Volume 500 Setting Ventilator Tidal Volume 500 Setting Ventilator Respiratory Rate 20 Setting Ventilator Respiratory Rate 20 Setting Ventilator Respiratory Rate 20 Setting Ventilator Respiratory Rate 20 Setting Ventilator Respiratory Rate 20 Setting Ventilator Respiratory Rate 20 Setting Ventilator Respiratory Rate 20 Setting Ventilator Respiratory Rate 20 Setting Ventilator Respiratory Rate 20 Setting Ventilator Respiratory Rate 20 Setting Ventilator Respiratory Rate 20 Setting Actual Respiratory Rate 20 Actual Respiratory Rate 20 Actual Respiratory Rate 20 Actual Respiratory Rate 20 Actual Respiratory Rate 20 Actual Respiratory Rate 20 Actual Respiratory Rate 20 Actual Respiratory Rate 20 Actual Respiratory Rate 20 Actual Respiratory Rate 24 Actual Respiratory Rate 20 Actual Respiratory Rate 20 Positive End Expiratory 8 Pressure Positive End Expiratory 8 Pressure Positive End Expiratory 8 Pressure Positive End Expiratory 8 Pressure Positive End Expiratory 8 Pressure Positive End Expiratory 8 Pressure Positive End Expiratory 8 Pressure Positive End Expiratory 8 Pressure Positive End Expiratory 8 Pressure Positive End Expiratory 8 Pressure Positive End Expiratory 8 Pressure Positive End Expiratory 8 Pressure Positive End Expiratory 8 Pressure Peak Inspiratory Airway 45 Pressure Peak Inspiratory Airway 45 Pressure Peak Inspiratory Airway 31 Pressure Peak Inspiratory Airway 32 Pressure Peak Inspiratory Airway 32 Pressure Peak Inspiratory Airway 32 Pressure Peak Inspiratory Airway 28 Pressure Peak Inspiratory Airway 28 Pressure Peak Inspiratory Airway 28 Pressure Peak Inspiratory Airway 27 Pressure Peak Inspiratory Airway 28 Pressure Peak Inspiratory Airway 28 Pressure Results - Laboratory Findings CBC and BMP: 01/19/18 04:00 01/19/18 04:00 ABG ABG pH 7.43 pH Units (7.32-7.45) 01/19/18 05:27 ABG pCO2 38 mmHg (35-45) 01/19/18 05:27 ABG pO2 69 mmHg (85-104) L 01/19/18 05:27 ABG O2 Saturation 94 % (95-98) L 01/19/18 05:27 PT/INR, D-dimer PT 11.6 Seconds (9.4-12.1) 01/18/18 11:35 Abnormal lab findings: Abnormal lab results WBC 16.5 K/mcL (4.3-11.1) H 01/19/18 04:00 Hct 35.0 % (35.3-44.9) L 01/19/18 04:00 MCH 27.7 pg (28.0-33.3) L 01/19/18 04:00 RDW 15.2 % (11.5-14.5) H 01/19/18 04:00 Neutrophils # 12.3 K/mcL (1.6-8.9) H 01/19/18 04:00 Monocytes # 1.4 K/mcL (0.0-1.3) H 01/19/18 04:00 Nucleated RBCs/100 WBC 0.1 /100 WBC (0) H 01/19/18 04:00 Platelet Estimate Increased (Normal) H 01/18/18 02:53 APTT 53.4 Seconds (26.0-36.0) H 01/19/18 06:00 ABG pO2 69 mmHg (85-104) L 01/19/18 05:27 ABG Total CO2 27 mEq/L (20-26) H 01/19/18 05:27 ABG O2 Saturation 94 % (95-98) L 01/19/18 05:27 Est GFR (Non-Af Amer) 54 (> 60) L 01/19/18 04:00 Glucose 171 mg/dL (70-105) H 01/19/18 04:00 POC Glucose 179 mg/dL (70-99) H 01/19/18 09:22 Venous Ioniz Calcium 1.13 mmol/L (1.15-1.35) L 01/19/18 06:11 Alkaline Phosphatase 112 Units/L (34-104) H 01/18/18 02:53 Troponin I 2.94 ng/mL (< 0.04) H* 01/18/18 14:45 B-Natriuretic Peptide 243 pg/mL (Less than 100) H 01/18/18 02:53 Urine Clarity Cloudy (Clear) A 01/18/18 03:18 Ur Specific [place] 1.026 (1.010-1.025) H 01/18/18 03:18 Urine Protein >=300 mg/dL (Neg-Trace) H 01/18/18 03:18 Urine Glucose (UA) >=1000 mg/dL (Normal) H 01/18/18 03:18 Urine Blood Small (Negative) H 01/18/18 03:18 Urine Microscopic WBC 50-100 per hpf (0-3) H 01/18/18 03:18 Ur Squamous Epith Cells Many per lpf (None-Few) H 01/18/18 03:18 - Microbiology Findings Microbiology Findings: Microbiology, Last 48 Hours 01/18/18 20:20 Sputum Culture - Preliminary Sputum - Clinical Findings Intake & Output: Intake & Output 01/18/18 01/19/18 01/19/18 23:59 07:59 15:59 Intake Total 1745.2 / 1745.2 980.8 / 980.8 10 / 10 Output Total 600 / 600 775 / 775 50 / 50 Balance 1145.2 / 1145.2 205.8 / 205.8 -40 / -40 Weight 126.2 kg Consult Discharge Plan - Plan Referrals: Jann Payne MD [Primary Care Provider] - - Attending Attestation I examined this patient and my medical decision-making was reviewed with the Resident Physician. I agree with the documented findings, disposition and treatment plan as described except to the extent set forth below. We independently had [id number] contact with the patient I spent 33min of Critical Care time with this patient. It involved decision making of high complexity to assess, manipulate, and support vital organ system failure and/or to prevent further life threatening deterioration of the patient' s condition. The time involved in the performance of separately reportable procedures was not counted toward critical care time. Patient seen and examined at bedside Labs, radiology, chart personally reviewed. Management was reviewed during multidisciplinary critical care rounds. FLEXIBLE NANNY: Deeply sedated on vent plan for SAT today. Pulm: Acute hypoxic hypercapnic respiratory failure acceptable gas exchange today. Cocnern for developing PNA Cards: ACS seen by cards possible LHC; cont ASA heparin. HOlding bb because of hypotension Accelerated HTN now hypotensive s/t cardiac cause (EF 35% new) levophed. FEN-GI: Start enteral nutrition per dietary recs. Renal: UOP monitored and acceptable ID: start Zosyn for likely aspiration PNA. Heme/Onc: On heparin H/h stable Endo: Glucose Monitored Integ/MSK: Skin Care per routine ICU Nursing Protocol to prevent ulcers. Lines: All lines examined without evidence of infection : Dispo: Remain in icu for critical illness. CODE: Full Code. <Francisco Javier Robledo - Last Filed: 01/19/18 11:21> Date of Encounter: 01/19/18 Time of Encounter: 08:57 Assessment and Plan (1) Acute respiratory failure with hypoxia and hypercapnia Current Visit: Yes Status: Acute - Acute respiratory failure with hypoxia hypercapnia possibly secondary to pulmonary edema, ACS vs less likely pneumonia - ABG on admission was uncompensated respiratory acidosis, pH 7.02, CO2 87. Improved to pH 7.43, 38 - CTA on emergency room shows bilateral atelectasis vs pneumonia - intubated in emergency room for respiratory distress, still requiring ventilator support - Met SIRS criteria on admission. Febrile overnight with Tmax of 102F, WBC increased to 16.5 from 12.3 - Lactic acid of 6.4, trended down to 2.2. Likely a result of hypoxemia/ infection - Troponin of 0.04/0.36/2.22/2.92 - Echo on 01/18/18 shows EF 30-35%, global wall dysfunction, mild diastolic dysfunction Plan - Continue mechanical ventilation - Continue zosyn day #1. Day #2 of Abx total - Attempt to diuresis as blood pressure allows. Good urine output with 40 lasix last evening. - Monitor daily labs (2) Acute coronary syndrome Current Visit: Yes Status: Suspected - Patient reportedly woke from sleep short of breath - Troponin increasing with most recent 2.94 (0.04/0.36/2.22 previous) - Cardiology consult, appreciate recommendations - Echo shows EF 30-35%, global LV dysfunction. No previous to compare. - EKG showed SVT with a rate of 157, poor R wave progression, no ST changes. Plan - Heparin gtt started, ASA given - Defer to cardiology recommendations. - Cards wants LHC before extubated but want to wait for Sepsis resolves. - Bradycardia overnight likely due to ACS. Atropine PRN (3) Septic shock Current Visit: Yes Status: Suspected - On presentation, patient did meet SIRS criteria with tachycardia, tachypnea, elevated WBC, now febrile - Patient is currently requiring vasopressor support and had a lactic acid of 6.4 which is up and down trended to 2.2 - Received 500 mL bolus of lactated Ringer's, did not receive resuscitation fluids as she is suspected volume overload - Possibly in combination with renal failure. Signs and symptoms are more likely day secondary to congestive heart failure exacerbation with prolonged hypoxemia - Started on vancomycin and Levaquin in emergency room, Vanc discontinued yesterday. - Started on zosyn yesterday due to fevers. Will continue, day #1. Plan - Continue ABx as above - Continue pressor support - Febrile overnight, Tmax 102 (4) Pulmonary edema Current Visit: Yes Status: Acute - As above for acute respiratory failure - No reported hx of CHF, however echo today showed combined CHF Will diurese as able. Qualifiers: Chronicity: acute Qualified Code(s): J81.0 - Acute pulmonary edema (5) Congestive heart failure Current Visit: Yes Status: Acute As above Qualifiers: Heart failure type: combined systolic and diastolic Heart failure chronicity: acute on chronic Qualified Code(s): I50.43 - Acute on chronic combined systolic (congestive) and diastolic (congestive) heart failure (6) Hyperkalemia Current Visit: Yes Status: Resolved K of 3.7, down from 5.8 resolved with insulin gtt. 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 - We will attempt to wean vasopressors as able, currently on levphed for pressor support. Qualifiers: Hypertension type: essential hypertension Qualified Code(s): I10 - Essential (primary) hypertension (10) NSTEMI (non-ST elevated myocardial infarction) Current Visit: Yes Status: Acute As above for ACS (11) DVT prophylaxis Current Visit: Yes Status: Acute - On heparin gtt for ACS as above. Subjective Principal diagnosis: Acute respiratory failure, NSTEMI Interval history: Patient seen and examined this morning. Unable to participate in interview. Overnight, noted to be bradycardic in 20-30s which resolved without treatment. Objective PUL Vital signs: Last Vital Signs Temp 98.4 F 01/19/18 08:02 Pulse 62 01/19/18 08:00 Resp 20 01/19/18 08:00 BP 129/69 01/19/18 08:00 Pulse Ox 94 01/19/18 08:00 Gen.: Vitals noted. No acute distress, intubated and sedated HEENT: PERRL/EOMI, oropharynx clear, Normocephalic, atraumatic, MMM, endotracheal tube in place Cardiac: RRR, no murmur, +S1/S2 Pulmonary: Rales diffusely, equal chest expansion Abdomen: soft, nontender, BS noted, no guarding, no rebound. MSK: ROM intact, no joint swelling noted Extremities: Minimal BLE edema, nontender calf, no cyanosis or clubbing Neuro: Intubated and sedated, pupils reactive to light Psych: Unable to assess Ventilator Settings Ventilator Settings: Ventilator Settings, Last 8 Hours Ventilator Mode VC+ Ventilator Mode VC+ Ventilator Mode VC+ Ventilator Mode VC+ Ventilator Mode VC+ Ventilator Mode VC+ Ventilator Mode VC+ Ventilator Mode VC+ Ventilator Tidal Volume 500 Setting Ventilator Tidal Volume 500 Setting Ventilator Tidal Volume 500 Setting Ventilator Tidal Volume 500 Setting Ventilator Tidal Volume 500 Setting Ventilator Tidal Volume 500 Setting Ventilator Tidal Volume 500 Setting Ventilator Tidal Volume 500 Setting Ventilator Tidal Volume 500 Setting Ventilator Tidal Volume 500 Setting Ventilator Tidal Volume 500 Setting Ventilator Tidal Volume 500 Setting Ventilator Respiratory Rate 20 Setting Ventilator Respiratory Rate 20 Setting Ventilator Respiratory Rate 20 Setting Ventilator Respiratory Rate 20 Setting Ventilator Respiratory Rate 20 Setting Ventilator Respiratory Rate 20 Setting Ventilator Respiratory Rate 20 Setting Ventilator Respiratory Rate 20 Setting Ventilator Respiratory Rate 20 Setting Ventilator Respiratory Rate 20 Setting Ventilator Respiratory Rate 20 Setting Ventilator Respiratory Rate 20 Setting Actual Respiratory Rate 20 Actual Respiratory Rate 20 Actual Respiratory Rate 20 Actual Respiratory Rate 20 Actual Respiratory Rate 20 Actual Respiratory Rate 20 Actual Respiratory Rate 20 Actual Respiratory Rate 24 Actual Respiratory Rate 20 Actual Respiratory Rate 20 Actual Respiratory Rate 20 Actual Respiratory Rate 20 Positive End Expiratory 8 Pressure Positive End Expiratory 8 Pressure Positive End Expiratory 8 Pressure Positive End Expiratory 8 Pressure Positive End Expiratory 8 Pressure Positive End Expiratory 8 Pressure Positive End Expiratory 8 Pressure Positive End Expiratory 8 Pressure Positive End Expiratory 8 Pressure Positive End Expiratory 8 Pressure Positive End Expiratory 8 Pressure Positive End Expiratory 8 Pressure Positive End Expiratory 8 Pressure Peak Inspiratory Airway 31 Pressure Peak Inspiratory Airway 32 Pressure Peak Inspiratory Airway 32 Pressure Peak Inspiratory Airway 32 Pressure Peak Inspiratory Airway 28 Pressure Peak Inspiratory Airway 28 Pressure Peak Inspiratory Airway 28 Pressure Peak Inspiratory Airway 27 Pressure Peak Inspiratory Airway 28 Pressure Peak Inspiratory Airway 28 Pressure Peak Inspiratory Airway 27 Pressure Peak Inspiratory Airway 27 Pressure Results - Laboratory Findings CBC and BMP: 01/19/18 04:00 01/19/18 04:00 ABG ABG pH 7.43 pH Units (7.32-7.45) 01/19/18 05:27 ABG pCO2 38 mmHg (35-45) 01/19/18 05:27 ABG pO2 69 mmHg (85-104) L 01/19/18 05:27 ABG O2 Saturation 94 % (95-98) L 01/19/18 05:27 PT/INR, D-dimer PT 11.6 Seconds (9.4-12.1) 01/18/18 11:35 Abnormal lab findings: Abnormal lab results WBC 16.5 K/mcL (4.3-11.1) H 01/19/18 04:00 Hct 35.0 % (35.3-44.9) L 01/19/18 04:00 MCH 27.7 pg (28.0-33.3) L 01/19/18 04:00 RDW 15.2 % (11.5-14.5) H 01/19/18 04:00 Neutrophils # 12.3 K/mcL (1.6-8.9) H 01/19/18 04:00 Monocytes # 1.4 K/mcL (0.0-1.3) H 01/19/18 04:00 Nucleated RBCs/100 WBC 0.1 /100 WBC (0) H 01/19/18 04:00 Platelet Estimate Increased (Normal) H 01/18/18 02:53 APTT 53.4 Seconds (26.0-36.0) H 01/19/18 06:00 ABG pO2 69 mmHg (85-104) L 01/19/18 05:27 ABG Total CO2 27 mEq/L (20-26) H 01/19/18 05:27 ABG O2 Saturation 94 % (95-98) L 01/19/18 05:27 Est GFR (Non-Af Amer) 54 (> 60) L 01/19/18 04:00 Glucose 171 mg/dL (70-105) H 01/19/18 04:00 POC Glucose 174 mg/dL (70-99) H 01/19/18 07:27 Venous Ioniz Calcium 1.13 mmol/L (1.15-1.35) L 01/19/18 06:11 Alkaline Phosphatase 112 Units/L (34-104) H 01/18/18 02:53 Troponin I 2.94 ng/mL (< 0.04) H* 01/18/18 14:45 B-Natriuretic Peptide 243 pg/mL (Less than 100) H 01/18/18 02:53 Urine Clarity Cloudy (Clear) A 01/18/18 03:18 Ur Specific [place] 1.026 (1.010-1.025) H 01/18/18 03:18 Urine Protein >=300 mg/dL (Neg-Trace) H 01/18/18 03:18 Urine Glucose (UA) >=1000 mg/dL (Normal) H 01/18/18 03:18 Urine Blood Small (Negative) H 01/18/18 03:18 Urine Microscopic WBC 50-100 per hpf (0-3) H 01/18/18 03:18 Ur Squamous Epith Cells Many per lpf (None-Few) H 01/18/18 03:18 - Microbiology Findings Microbiology Findings: Microbiology, Last 48 Hours 01/18/18 20:20 Sputum Culture - Preliminary Sputum - Clinical Findings Intake & Output: Intake & Output 01/18/18 01/19/18 01/19/18 23:59 07:59 15:59 Intake Total 1745.2 / 1745.2 980.8 / 980.8 4 / 4 Output Total 600 / 600 775 / 775 50 / 50 Balance 1145.2 / 1145.2 205.8 / 205.8 -46 / -46 Weight 126.2 kg - VTE Documentation of Mechanical Device: Intermittent pneumatic compression device
[2018-01-19] MEDS: Insulin Human Regular 100 UNIT in 0.9 % Sodium Chloride 100 ML IVC SCH (09:43)
--- NOTE | 2018-01-19 13:41 | Cardiology Progress Note ---
Date of Encounter: 01/19/18 Time of Encounter: 13:37 Assessment and Plan (1) NSTEMI (non-ST elevated myocardial infarction) Current Visit: Yes Status: Acute Extensive hx of CAD with elevating trops and resp failure s/p intubation. EF 35 % on ECHO, LHC reasonable for ongoing cardiac injury and rising trops. WBC improved with no source for sepsis on emperic Abx, discussed with PCCM Once again elevated WBC at 16 from 12,000 with fever of 102 last night, blood cultures pending. Concerning for sepsis currently of unknown source. LHC planned today if trops rise but are actually trending down, will continue heparin and follow along when patient afebrile with downtrending WBC for LHC. Ideally LHC would be performed prior to extubation. Discussion w patient/family: The assessment and plan as outlined above was discussed with the patient and/or family members who expressed understanding and agreement. All questions were answered. Thank you for involving us in the care of your patient. Please call with any questions. Subjective Principal diagnosis: Acute respiratory failure, NSTEMI Interval history: Sedated on the vent off levo briefly now on small dose Improved Vent settings Objective Vital Signs, Last 4 Hours Temp Pulse Resp BP Pulse Ox 01/19/18 12:15 62 01/19/18 11:29 98.4 F 01/19/18 10:00 66 20 100/63 94 01/19/18 09:40 20 94 General: Conversant, No Apparent Distress HEENT: Atraumatic, Normocephaly, Mucus Membranes Moist Neck: No JVD, Normal carotid pulses Cardiac: Reg Rate and Rhythm, Normal S1 and S2, No Murmur Lungs: Normal Breath Sounds, No Wheeze, Rales, Rhonchi Neuro: Alert and responsive, No focal deficits noted Abdomen: Soft, Non-Tender Skin: No rashes noted on visualized skin Musculoskeletal: No Chest Wall Tenderness Extremities: No Clubbing, No Cyanosis, No Edema, Normal Pulses Results 01/19/18 04:00 01/19/18 04:00 Lab Results 01/18/18 01/18/18 01/18/18 14:45 16:00 17:00 WBC Hgb Hct Plt Count APTT 32.8 Sodium 138 Potassium 4.2 D Chloride 106 Carbon Dioxide 24 BUN 22 Creatinine 0.99 Glucose 272 H Calcium 8.7 Magnesium Troponin I 2.94 H* 01/19/18 01/19/18 01/19/18 00:00 04:00 04:00 WBC 16.5 H Hgb 11.5 Hct 35.0 L Plt Count 295 APTT 59.0 H D Sodium 139 Potassium 3.7 Chloride 106 Carbon Dioxide 26 BUN 23 Creatinine 1.03 Glucose 171 H Calcium 8.8 Magnesium Troponin I 01/19/18 01/19/18 01/19/18 04:00 06:00 09:32 WBC Hgb Hct Plt Count APTT 53.4 H Sodium Potassium Chloride Carbon Dioxide BUN Creatinine Glucose Calcium Magnesium 1.9 Troponin I 2.17 H* - VTE Documentation of Mechanical Device: Intermittent pneumatic compression device Consult Discharge Plan - Plan Referrals: Jann Payne MD [Primary Care Provider] -
[2018-01-19 15:49] LABS: Basophils # 0.1 K/mcL (0.0-0.2); Basophils % 0.4 %; Eosinophils # 0.2 K/mcL (0.0-0.6); Eosinophils % 1.3 %; Hematocrit 35.9 % (35.3-44.9); Hemoglobin 11.5 g/dL (11.5-15.4); Immature Granulocytes % 1.1 % (0-4); Lymphocytes # 2.6 K/mcL (0.6-4.6); Lymphocytes % 14.6 %; Mean Corpuscular Hemoglobin 27.6 pg (28.0-33.3); Mean Corpuscular Volume 86.1 fL (83.0-100.0); Mean Platelet Volume 10.8 fL (9.4-12.4); Monocytes # 1.4 K/mcL (0.0-1.3); Monocytes % 7.7 %; Neutrophils # 13.3 K/mcL (1.6-8.9); Platelet Count 296 K/mcL (140-400); Red Blood Count 4.17 M/mcL (3.82-4.97); Red Cell Distribution Width 15.4 % (11.5-14.5); Segmented Neutrophils % 74.9 %
[2018-01-19 16:13] LABS: BUN/Creatinine Ratio 25 (6-26); Blood Urea Nitrogen 26 mg/dL (8-23); Calcium 8.6 mg/dL (8.6-10.3); Carbon Dioxide 26 mEq/L (23-29); Chloride 107 mEq/L (98-107); Glucose 130 mg/dL (70-105); Magnesium 2.3 mg/dL (1.6-2.6); Osmolality,Calculated 295 (280-300); Potassium 4.3 mEq/L (3.5-5.1); Sodium 139 mEq/L (136-145); eGFR For African Americans > 60 (> 60); eGFR For Non-African Americans 53 (> 60)
--- NOTE | 2018-01-19 16:34 | Electrocardiograph Report ---
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
[2018-01-19] MEDS ORDERED: Haloperidol Lactate 5 MG/ML VIAL IVP ONE (18:45)
[2018-01-19] MEDS ORDERED: Haloperidol Lactate 5 MG/ML VIAL ONE (18:47)
[2018-01-19] MEDS: Albuterol 2.5 MG/3 ML NEBULIZER IH PRN ×2 (19:02→23:09)
[2018-01-19] MEDS ORDERED: *HR* LORazepam 2 MG/ML VIAL IVP ONE (19:06)
[2018-01-19] MEDS ORDERED: Acetaminophen 650 MG RECTAL SUPP RC PRN (19:09)
[2018-01-19 22:02] LABS: ABG Base Excess -1 mEq/L (-2 to 3); ABG HCO3 28 mEq/L (21-27); ABG Oxygen Saturation 95 % (95-98); ABG PCO2 63 mmHg (35-45); ABG PH 7.25 pH Units (7.32-7.45); ABG PO2 91 mmHg (85-104); ABG TCO2 30 mEq/L (20-26); Blood Gas Modality ASSIST CONTROL; Blood Gas PEEP 8 cm H2O; Blood Gas Respiration Rate 18; Blood Gas VT 450 cc
[2018-01-19] MEDS ORDERED: Furosemide 40 MG/4 ML VIAL IVP ONE (22:10)
[2018-01-19] MEDS: Norepinephrine 4 MG in D5% in Water 250 ML IVC SCH (23:27)
[2018-01-20] MEDS: FentaNYL (PF) 1,000 MCG in 0.9 % Sodium Chloride 80 ML IVC SCH ×5 (02:59→21:57)
[2018-01-20] MEDS: Norepinephrine 4 MG in D5% in Water 250 ML IVC SCH ×2 (03:00→21:56)
[2018-01-20] MEDS: Albuterol 2.5 MG/3 ML NEBULIZER IH PRN (03:23)
[2018-01-20] MEDS: Lacri-Lube 3.5 GM TUBE BOTH EYES SCH ×6 (03:53→23:35)
[2018-01-20] MEDS: Dexmedetomidine HCl 400 MCG/100 ML MLS IVC SCH ×2 (04:06→07:55)
[2018-01-20 04:17] LABS: Basophils # 0.1 K/mcL (0.0-0.2); Basophils % 0.5 %; Eosinophils # 0.2 K/mcL (0.0-0.6); Eosinophils % 0.9 %; Hematocrit 32.1 % (35.3-44.9); Hemoglobin 10.3 g/dL (11.5-15.4); Immature Granulocytes % 1.6 % (0-4); Lymphocytes # 2.6 K/mcL (0.6-4.6); Lymphocytes % 15.1 %; Mean Corpuscular HGB Conc 32.1 g/dL (31.6-35.5); Mean Corpuscular Hemoglobin 27.6 pg (28.0-33.3); Mean Corpuscular Volume 86.1 fL (83.0-100.0); Mean Platelet Volume 10.6 fL (9.4-12.4); Monocytes # 1.3 K/mcL (0.0-1.3); Monocytes % 7.5 %; Neutrophils # 12.6 K/mcL (1.6-8.9); Nucleated Red Blood Cells 0.1 /100 WBC (0); Platelet Count 267 K/mcL (140-400); Red Blood Count 3.73 M/mcL (3.82-4.97); Red Cell Distribution Width 15.5 % (11.5-14.5); Segmented Neutrophils % 74.4 %
[2018-01-20 04:37] LABS: Potassium 3.8 mEq/L (3.5-5.1)
[2018-01-20 05:10] LABS: ABG Base Excess 3 mEq/L (-2 to 3); ABG HCO3 28 mEq/L (21-27); ABG Oxygen Saturation 99 % (95-98); ABG PCO2 43 mmHg (35-45); ABG PH 7.42 pH Units (7.32-7.45); ABG PO2 116 mmHg (85-104); ABG TCO2 29 mEq/L (20-26); Blood Gas Modality ASSIST CONTROL; Blood Gas PEEP 8 cm H2O; Blood Gas Respiration Rate 18; Blood Gas VT 500 cc
--- NOTE | 2018-01-20 06:51 | Pulmonology Progress Note ---
Date of Encounter: 01/20/18 Time of Encounter: 06:51 Assessment and Plan (1) Acute respiratory failure with hypoxia and hypercapnia Current Visit: Yes Status: Acute Patient has been intubated and on ventilator for approximately 3 days she presented with acute hypoxic respiratory failure in the setting of acute cardiogenic pulmonary edema secondary to accelerated hypertension and non- STEMI. See below for my assessment and plan based upon organ system Labs, radiology, chart personally reviewed. Management was reviewed during multidisciplinary critical care rounds. 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 Plan for spontaneous awake trial today. She has had periods of significant agitation which will require continual sedation we will attempt to decrease this as possible for goal Cuello 2-3. Encouragingly yesterday patient was able to have a conversation through the endotracheal tube where she is able to follow all commands answer questions and x-ray write sentences on a white board at bedside Pulm: Acute hypoxic hypercapnic respiratory failure secondary to cardiogenic pulmonary edema complicated acutely by aspiration pneumonia she had worsening gas exchange overnight with adjustments in her mental ventilation which is improved her ABG in today notable improvement in gas exchange. I suspect this is a large component of cardiogenic pulmonary edema for which more aggressive diuresis has been instituted. Depending on the plan with cardiology patient could be a candidate for spontaneous breathing trial and extubation later in the day versus holding on this until left heart catheterization can be performed Cards: Accelerated hypertension has resolved patient also has evidence of non- ST elevation OK with the reduction in ejection fraction she has a history of note multivessel coronary artery disease evaluated by cardiology plan for left heart catheter will remain on heparin and aspirin at present she is being weaned off vasopressor support for cardiogenic shock and she is not a candidate for beta cata because of allergy and because of relative hypotension FEN-GI: Continue enteral nutrition per dietary recommendations continue GI prophylaxis to prevent stress ulcers Renal: Urine output monitored no evidence of kidney injury continued to trend electrolytes daily including potassium and magnesium and replace for goal 4.0 and 2.0 respectively ID: Patient has evidence of aspiration pneumonia and is on antimicrobial coverage was initiated fever yesterday morning but has not had any subsequent pyrexia. Cultures have been obtained thus far negative she has a leukocytosis which is trending down slowly Heme/Onc: She is on heparin infusion for ACS protocol no evidence of acute anemia Endo: Glucose Monitored and stable she has a history of diabetes and hyperglycemia on admission that is responding to insulin infusion Integ/MSK: Skin Care per routine ICU Nursing Protocol to prevent ulcers. Lines: All lines examined without evidence of infection : Dispo: Remain in ICU for ventilator management CODE: Full code (2) Pneumonia Current Visit: Yes Status: Acute Qualifiers: Lung location: unspecified part of lung Qualified Code(s): J18.9 - Pneumonia, unspecified organism (3) Cardiogenic shock Current Visit: Yes Status: Acute (4) Sepsis Current Visit: Yes Status: Acute Qualifiers: Sepsis type: sepsis due to unspecified organism Qualified Code(s): A41.9 - Sepsis, unspecified organism (5) NSTEMI (non-ST elevated myocardial infarction) Current Visit: Yes Status: Acute (6) Type 2 diabetes mellitus Current Visit: Yes Status: Chronic Qualifiers: Diabetes mellitus lobsterman insulin use: with lobsterman use Diabetes mellitus complication status: with hyperglycemia Qualified Code(s): E11.65 - Type 2 diabetes mellitus with hyperglycemia; Z79.4 - MCFP (current) use of insulin Subjective Principal diagnosis: Acute respiratory failure, NSTEMI Interval history: Overnight patient had periods of agitation requiring increase in sedation. Also noted to be developing worsening respiratory acidosis vent was adjusted by increasing minute ventilation primarily by adjusting tidal volume. If concern for worsening pulmonary edema and IV Lasix was given subsequent to these interventions the patient became much more calm and had improvement in gas exchange. At bedside this morning she was very comfortable on sedation for the vent Objective PUL Vital signs: Last Vital Signs Temp 99.4 F 01/20/18 02:43 Pulse 76 01/20/18 05:52 Resp 18 01/20/18 05:52 BP 131/59 01/20/18 05:52 Pulse Ox 100 01/20/18 05:52 General appearance: other (Intubated and sedated no distress) Eyes: nonicteric ENT: other (Endotracheal tube satisfactory positioning) Effort: normal Auscultation: bilateral: rales Cardiovascular: regular rate and rhythm Gastrointestinal: normoactive bowel sounds, soft, non-tender Integumentary: normal Extremities: edema pupils equal and round, other (Patient is noted to have spontaneous movements of all extremities without evidence of focal weakness) Ventilator Settings Ventilator Settings: Ventilator Settings, Last 8 Hours Ventilator Mode A/C Ventilator Mode A/C Ventilator Mode A/C Ventilator Mode A/C Ventilator Mode A/C Ventilator Mode A/C Ventilator Mode A/C Ventilator Mode A/C Ventilator Mode A/C Ventilator Tidal Volume 500 Setting Ventilator Tidal Volume 500 Setting Ventilator Tidal Volume 500 Setting Ventilator Tidal Volume 500 Setting Ventilator Tidal Volume 500 Setting Ventilator Tidal Volume 500 Setting Ventilator Tidal Volume 500 Setting Ventilator Tidal Volume 500 Setting Ventilator Tidal Volume 500 Setting Ventilator Tidal Volume 500 Setting Ventilator Tidal Volume 500 Setting Ventilator Tidal Volume 500 Setting Ventilator Tidal Volume 500 Setting Ventilator Respiratory Rate 18 Setting Ventilator Respiratory Rate 18 Setting Ventilator Respiratory Rate 18 Setting Ventilator Respiratory Rate 18 Setting Ventilator Respiratory Rate 18 Setting Ventilator Respiratory Rate 18 Setting Ventilator Respiratory Rate 18 Setting Ventilator Respiratory Rate 18 Setting Ventilator Respiratory Rate 18 Setting Ventilator Respiratory Rate 18 Setting Ventilator Respiratory Rate 18 Setting Ventilator Respiratory Rate 18 Setting Ventilator Respiratory Rate 18 Setting Actual Respiratory Rate 18 Actual Respiratory Rate 18 Actual Respiratory Rate 18 Actual Respiratory Rate 18 Actual Respiratory Rate 18 Actual Respiratory Rate 18 Actual Respiratory Rate 18 Actual Respiratory Rate 18 Actual Respiratory Rate 18 Actual Respiratory Rate 20 Actual Respiratory Rate 19 Actual Respiratory Rate 21 Positive End Expiratory 8 Pressure Positive End Expiratory 8 Pressure Positive End Expiratory 8 Pressure Positive End Expiratory 8 Pressure Positive End Expiratory 8 Pressure Positive End Expiratory 8 Pressure Positive End Expiratory 8 Pressure Positive End Expiratory 8 Pressure Positive End Expiratory 8 Pressure Positive End Expiratory 8 Pressure Positive End Expiratory 8 Pressure Positive End Expiratory 8 Pressure Positive End Expiratory 8 Pressure Peak Inspiratory Airway 28 Pressure Peak Inspiratory Airway 30 Pressure Peak Inspiratory Airway 30 Pressure Peak Inspiratory Airway 29 Pressure Peak Inspiratory Airway 26 Pressure Peak Inspiratory Airway 26 Pressure Peak Inspiratory Airway 26 Pressure Peak Inspiratory Airway 30 Pressure Peak Inspiratory Airway 31 Pressure Peak Inspiratory Airway 39 Pressure Peak Inspiratory Airway 35 Pressure Peak Inspiratory Airway 36 Pressure Results - Laboratory Findings CBC and BMP: 01/20/18 04:00 01/20/18 04:00 ABG ABG pH 7.42 pH Units (7.32-7.45) 01/20/18 05:03 ABG pCO2 43 mmHg (35-45) 01/20/18 05:03 ABG pO2 116 mmHg (85-104) H 01/20/18 05:03 ABG O2 Saturation 99 % (95-98) H 01/20/18 05:03 PT/INR, D-dimer PT 11.6 Seconds (9.4-12.1) 01/18/18 11:35 Abnormal lab findings: Abnormal lab results WBC 17.0 K/mcL (4.3-11.1) H 01/20/18 04:00 RBC 3.73 M/mcL (3.82-4.97) L 01/20/18 04:00 Hgb 10.3 g/dL (11.5-15.4) L 01/20/18 04:00 Hct 32.1 % (35.3-44.9) L 01/20/18 04:00 MCH 27.6 pg (28.0-33.3) L 01/20/18 04:00 RDW 15.5 % (11.5-14.5) H 01/20/18 04:00 Neutrophils # 12.6 K/mcL (1.6-8.9) H 01/20/18 04:00 Nucleated RBCs/100 WBC 0.1 /100 WBC (0) H 01/20/18 04:00 Platelet Estimate Increased (Normal) H 01/18/18 02:53 APTT 77.2 Seconds (26.0-36.0) H 01/20/18 04:00 ABG pO2 116 mmHg (85-104) H 01/20/18 05:03 ABG HCO3 28 mEq/L (21-27) H 01/20/18 05:03 ABG Total CO2 29 mEq/L (20-26) H 01/20/18 05:03 ABG O2 Saturation 99 % (95-98) H 01/20/18 05:03 BUN 25 mg/dL (8-23) H 01/20/18 04:00 Est GFR (Non-Af Amer) 49 (> 60) L 01/20/18 04:00 Glucose 196 mg/dL (70-105) H 01/20/18 04:00 POC Glucose 184 mg/dL (70-99) H 01/20/18 05:51 Calcium 8.0 mg/dL (8.6-10.3) L 01/20/18 04:00 Venous Ioniz Calcium 1.13 mmol/L (1.15-1.35) L 01/19/18 06:11 Alkaline Phosphatase 112 Units/L (34-104) H 01/18/18 02:53 Troponin I 2.17 ng/mL (< 0.04) H* 01/19/18 09:32 B-Natriuretic Peptide 243 pg/mL (Less than 100) H 01/18/18 02:53 Urine Clarity Cloudy (Clear) A 01/18/18 03:18 Ur Specific Mcnabb 1.026 (1.010-1.025) H 01/18/18 03:18 Urine Protein >=300 mg/dL (Neg-Trace) H 01/18/18 03:18 Urine Glucose (UA) >=1000 mg/dL (Normal) H 01/18/18 03:18 Urine Blood Small (Negative) H 01/18/18 03:18 Urine Microscopic WBC 50-100 per hpf (0-3) H 01/18/18 03:18 Ur Squamous Epith Cells Many per lpf (None-Few) H 01/18/18 03:18 - Microbiology Findings Microbiology Findings: Microbiology, Last 48 Hours 01/18/18 20:20 Sputum Culture - Preliminary Sputum - Diagnostic Findings Chest x-ray: report reviewed, image reviewed - Clinical Findings Intake & Output: Intake & Output 01/19/18 01/19/18 01/20/18 15:59 23:59 07:59 Intake Total 1006 / 1006 1449.9 / 1449.9 848.4 / 848.4 Output Total 250 / 250 150 / 150 800 / 800 Balance 756 / 756 1299.9 / 1299.9 48.4 / 48.4 Weight 131.3 kg - VTE Documentation of Mechanical Device: Intermittent pneumatic compression device Consult Discharge Plan - Plan Referrals: Jann Payne MD [Primary Care Provider] -
[2018-01-20] MEDS: Insulin Human Regular 100 UNIT in 0.9 % Sodium Chloride 100 ML IVC SCH ×2 (07:00→13:45)
[2018-01-20] MEDS ORDERED: Furosemide 40 MG/4 ML VIAL IVP ONE ×2 (07:02→21:32)
[2018-01-20] MEDS: Piperacillin/Tazobactam 3.375 GM in 0.9 % Sodium Chloride Mini Bag 100 ML IVPB SCH ×3 (07:13→23:34)
[2018-01-20] MEDS: Pantoprazole 40 MG VIAL IVP SCH (07:13)
[2018-01-20] MEDS: Chlorhexidine Rinse 15 ML MOUTHWASH MM SCH ×2 (07:14→19:32)
[2018-01-20] MEDS: Aspirin 81 MG TAB.CHEW PO SCH (07:14)
[2018-01-20] MEDS: Heparin 25,000 UNIT/500 ML D5W 25,000 UNIT/500 ML BAG IVC SCH (12:10)
--- NOTE | 2018-01-20 13:08 | Pre-Sedation Evaluation ---
Pre-sedation evaluation - Pre-sedation checklist Date of procedure: 01/18/18 Procedure: [facility] Recent Vitals: Last Vital Signs Temp 98.8 F 01/20/18 07:48 Pulse 71 01/20/18 12:00 Resp 18 01/20/18 12:00 BP 84/38 01/20/18 12:00 Pulse Ox 97 01/20/18 12:00 H&P (including ROS) documented in medical record: Yes Previous reaction to sedatives/anesthetics: No Dietary Status: NPO after Midnight Airway Assessment: Patient can open mouth completely, TMJ function normal ASA Classification *see protocol: CLASS II-Mild systemic disease Plan of Care: Pt appropriate candidate for procedure/moderate/conscious sedation , Risks/benefits of procedure/sedation discussed w/ patient/family
--- NOTE | 2018-01-20 13:20 | Event Note ---
Date of Encounter: 01/20/18 Time of Encounter: 13:17 - Cardiology Event Note Peak troponin 2.94, TTE EF 35%--unclear if new. Hx of CAD and PCI. [facility] recommended by Dr. Cabral for CMP and NSTEMI. Discussed with primary team, who feels she is stable from a septic standpoint and has been on IV antibiotics >48 hours. Pt remains intubated, consent obtained from POA/next of kin. C today.
[2018-01-20 13:49] LABS: BUN/Creatinine Ratio 22 (6-26); Blood Urea Nitrogen 23 mg/dL (8-23); Carbon Dioxide 26 mEq/L (23-29); Chloride 104 mEq/L (98-107); Glucose 159 mg/dL (70-105); Osmolality,Calculated 289 (280-300); Potassium 4.1 mEq/L (3.5-5.1); Sodium 136 mEq/L (136-145); eGFR For African Americans > 60 (> 60); eGFR For Non-African Americans 53 (> 60)
[2018-01-20] MEDS: Nitroglycerin 25 MG/250 ML INFUS..BTL IVC SCH (14:05)
[2018-01-20] MEDS ORDERED: Heparin 1,000 UNITS/500 mL 500 ML ONE (15:23)
[2018-01-20] MEDS ORDERED: 0.9 % Sodium Chloride 1,000 ML ONE ×2 (15:23→16:19)
[2018-01-20] MEDS ORDERED: ISOVUE-370 200 ML INFUS..BTL IV ONE (15:23)
[2018-01-20] MEDS ORDERED: *HR* Heparin 10,000 UNIT/10 ML VIAL ONE (15:23)
[2018-01-20] MEDS ORDERED: Verapamil 5 MG/2 ML VIAL ONE (16:21)
[2018-01-20] MEDS ORDERED: Nitroglycerin 1,000 MCG/10 ML VIAL IV ONE (16:21)
--- NOTE | 2018-01-20 17:25 | Invasive Diagnostic Lab Proc ---
Name: Renetta Michaels Date of Study: 01/20/2018 Date: 1950 Ht: 66.9in Medical Record#: [id number] Age: 67 Wt: 268.52lb Gender: Female BSA: 2.29 Order #: [id number] BMI: 42.19 Physicians Procedure Physician: [facility]elez [facility] Referring MD: Referring MD: Staff Name Position [facility] 04:25 PM Wing Cortes RT (R) Scrub 04:25 PM Francesca Alan RN Shrink Pit Supervisor 04:25 PM Steve Butler RN Shrink Pit Supervisor 04:25 PM Indications Indication Non-Stemi Procedures Performed Procedure L HRT ARTERY/VENTRICLE ANGIO Pre-Procedure Checklist Informed consent is complete signed and on chart. H&P is on chart. ID band is on and ID verified with patient. Patient NPO for procedure The procedure was described for the patient and questions were answered. Blood Pressure: 117/67 ECG is on chart. Rhythm: NSR Plan of Care Patient will tolerate the procedure without complications. Adequate level of comfort will be maintained. Hemodynamics will remain stable Patient will recover from procedure without complications. Respiratory function will be maintained. Cardiac rhythm will remain stable. Patient temperature will be maintained. Patient and/or family have verbalized understanding of the procedure. Patient Education Chief Complaint/Reason for Test: Cardiac Cath Developmental Category: Geriatric (65+ years) Developmentally Appropriate for Age: Yes Learning Barriers: Sedated Education Needs: Procedure Educational Evaluation: Not ready to learn Intravenous Access Time IV Size Location DC'd Fluid/Drip Rate Units RN 04:24 PM 20g 1 /" Patent On Arrival Rt Antecubital 04:24 PM Central Line Rt Jugular Heparin 34.8 ml/hr Central Line Rt Jugular Levophed 7.5 ml/hr Central Line Rt Jugular Propofol 11.8 ml/hr Central Line Rt Jugular Insulin 14.4 ml/hr Allergies Beta-Blockers (Beta-Adrenergic Bloc Nickel LILLIAM Inhibitor Simvastatin enalaprilat NICKEL, LILLIAM INHIBITORS, ZOCOR Vital Signs Time BP (mmHg) HR (bpm) O2 Sat. RR (bpm) LOC 04:24 PM 117 / 67 70 93 % 16 04:27 PM / % 4 = Oriented but drowsy 04:27 PM / % 4 = Oriented but drowsy 04:42 PM / % 4 = Oriented but drowsy 04:21 PM 117 / 67 66 92 % 8 04:26 PM 113 / 76 75 92 % 12 04:31 PM 114 / 65 70 93 % 8 04:36 PM 97 / 68 69 93 % 8 04:41 PM 101 / 62 65 93 % 9 04:46 PM 116 / 66 69 93 % 8 04:51 PM 111 / 70 78 94 % 7 04:56 PM 109 / 66 68 93 % 11 05:01 PM 110 / 76 70 % 7 05:06 PM 116 / 70 70 % 7 05:11 PM 117 / 68 81 % 8 Procedural Medications Time Medication Dose Units Method Given By 04:26 PM Oxygen L/min mechanical ventilator Respiratory 04:27 PM Propofol 11.8 ml/hr Intravenous 04:28 PM Insulin 14.5 ml/hr Intravenous 04:29 PM Heparin 34.8 ml/hr Intravenous 04:29 PM Levophed 7.5 ml/hr Intravenous 04:33 PM Lidocaine 2% 0.5 ml Subcutaneous Du Velez MD, FACC 04:38 PM Lidocaine 2% 18 ml Subcutaneous Du Velez MD, FACC ASA Classification: CLASS III- Severe systemic disease (i.e. prior AMI, diabetes with vascular complications, morbid obesity) Harshal Score Preprocedure Postprocedure Activity 2- Moves 4 extremities sustained head lift Activity 2- Moves 4 extremities sustained head lift Circulation 2- SBP +/= 20 points of pre-anesthetic level Circulation 2- SBP +/= 20 points of pre-anesthetic level Consciousness 2- Awake and alert oriented x 3 Consciousness 1- Responds to verbal stimuli drowsy O2 Saturation 2- Able to maintain O2 satruation of 92% on room air O2 Saturation 2- Able to maintain O2 satruation of 92% on room air Respiratory 1- Labored or limited respiration requires airway Respiratory 1- Labored or limited respiration requires airway Total Score 9 Total Score 8 Contrast Agent: Isovue Diagnostic Contrast: 75 ml Total Contrast: 75 ml Fluoro Dose: 480 mGy Activated Clotting Time Time Seconds to Clot 04:58 PM 150 Procedure Log Time Note Enter By 04:14 PM Reference ECG taken 04:15 PM Recorded ECG: HR=65 Condition=Condition 1 04:16 PM CathStat 04:16 PM Vitals capture started with the following parameters, Patient=Adult, Interval=5 min, Initial Lilfskmv=740 mmHg, Deflation Rate=3 mmHg, Cuff placed on Right Arm 04:19 PM Vitals capture stopped. 04:20 PM Vitals capture started with the following parameters, Patient=Adult, Interval=5 min, Initial Qdalvolz=395 mmHg, Deflation Rate=3 mmHg, Cuff placed on Right Arm 04:20 PM Pt arrived to label sewer 1 at 16:20 [email or web address] 04:21 PM HR=66 bpm, IHTS=686/67 mmhg, SpO2=92.0 %, Resp=8 B/min 04:23 PM Pressure channel 1 zero failed. 04:25 PM Pt arrived to label sewer 1 at 16:25 [email or web address] 04:25 PM Ladarius Jaimes MD Position: Monitor Time in: 16:25 [email or web address] 04:25 PM Wing Cortes RT (R) Position: Scrub Time in: 16:25 [email or web address] 04:25 PM Francesca Alan RN Position: Shrink Pit Supervisor Time in: 16:25 [email or web address] 04:25 PM Steve Butler RN Position: Shrink Pit Supervisor Time in: 16:25 [email or web address] 04:25 PM Patient charges- Angio tray pack, Navilyst 3mm J, Pulse Oximetry and ACIST tubing and transducer [email or web address] 04: PM Case Delayed No [email or web address] 04: PM Hair removed from procedure site in holding area using clippers. Right wrist prepped with Chloraprep by Yesika Hyman MD, [facility], then patient was draped. Skin intact. [email or web address] 04: PM Hair removed from procedure site in holding area using clippers. Right groin prepped with Chloraprep by Ashley Castro RT (R), then patient was draped. Skin intact. [email or web address] 04: PM HR=75 bpm, RFQQ=665/76 mmhg, SpO2=92.0 %, Resp=12 B/min 04: PM Physician arrived 16: [email or web address] 04: PM Gautam and suzanne completed [email or web address] : PM Sign in performed according to hospital policy. [email or web address] 04: PM Procedure start 16: [email or web address] 04: PM ASA Class CLASS III- Severe systemic disease (i.e. prior AMI, diabetes with vascular complications, morbid obesity) [email or web address] : PM Time: 16: Oxygen on at L/min per mechanical ventilator by Respiratory [email or web address] 04:27 PM Time: 16:27 Patient comfortable and pain free: Yes [email or web address] 04:27 PM Time: 16:27LOC: 4 = Oriented but drowsy [email or web address] 04:28 PM Patient arrived at 16:27 with Propofol Intravenous drip @ 11.8 ml/hr [email or web address] 04:29 PM Patient arrived at 16:28 with Insulin Intravenous drip @ 14.5 ml/hr [email or web address] 04:29 PM Patient arrived at 16:29 with Heparin Intravenous drip @ 34.8 ml/hr [email or web address] 04:29 PM Patient arrived at 16:29 with Levophed Intravenous drip @ 7.5 ml/hr [email or web address] 04:30 PM Pressure channel 1 zeroed. 04:30 PM Recorded ECG: HR=68 Condition=Condition 1 04:30 PM Reference ECG taken 04:31 PM HR=70 bpm, VSMU=794/65 mmhg, SpO2=93.0 %, Resp=8 B/min, Comment=NSR 04:32 PM Time out performed according to hospital policy [email or web address] 04:33 PM Heparin drip turned off by Francesca Alan RN. [email or web address] 04:33 PM Time: 16:33 0.5 ml Lidocaine 2% to right radial Subcutaneous Given by Du Velez MD, [facility] [email or web address] 04:34 PM Unsuccessful access attempt # 1 into the right Radial artery. Manual pressure applied to achieve hemostasis.. [email or web address] 04:35 PM Unsuccessful access attempt # 1 into the right Radial artery. Manual pressure applied to achieve hemostasis.. [email or web address] 04:36 PM HR=69 bpm, NIBP=97/68 mmhg, SpO2=93.0 %, Resp=8 B/min, Comment=NSR 04:37 PM Unsuccessful access attempt # 3 into the right Radial artery. Manual pressure applied to achieve hemostasis.. [email or web address] 04:38 PM Unable to advance wire through radial artery. [email or web address] 04:38 PM Time: 16:38 19 ml Lidocaine 2% to right groin Subcutaneous Given by Du Velez MD, [email or web address] 04:41 PM HR=65 bpm, FKNY=497/62 mmhg, SpO2=93.0 %, Resp=9 B/min, Comment=NSR 04:41 PM Unsuccessful access attempt # 1 into the right Femoral artery. Manual pressure applied to achieve hemostasis.. [email or web address] 04:42 PM Time: 16:27LOC: 4 = Oriented but drowsy [email or web address] 04:42 PM Time: 16:27 Patient comfortable and pain free: Yes [email or web address] 04:42 PM Access obtained by percutaneous puncture. 5Fr 10cm Terumo [place] sheath placed in right Femoral artery. [id number] [email or web address] 04:43 PM 0.035 145cm Navilyst 3mmJ wire [id number] [email or web address] 04:43 PM 5Fr FL 4 catheter inserted over the wire DNC [email or web address] 04:43 PM LCA angiography performed in multiple views. [email or web address] 04:44 PM Recorded Pressure: Ao, HR=68, Condition=Condition 1 (Aorta) Ao 83/48/62 04:45 PM Recorded Pressure: Ao, HR=67, Condition=Condition 1 (Aorta) Ao 86/51/66 04:45 PM Lesion found in Mid Circumflex. Pre Stenosis: 50 Pre STEFANI Flow: 3: Complete and Brisk Flow/Perfusion [email or web address] 04:45 PM Lesion found in Mid LAD. Pre Stenosis: 80 Pre STEFANI Flow: 3: Complete and Brisk Flow/Perfusion [email or web address] 04:45 PM Catheter removed [email or web address] 04:45 PM 5Fr FR 4 catheter inserted over the wire DNC [email or web address] 04:45 PM RCA angiography performed in multiple views. [email or web address] 04:46 PM HR=69 bpm, BHEC=412/66 mmhg, SpO2=93.0 %, Resp=8 B/min, Comment=NSR 04:46 PM Recorded Pressure: Ao, HR=72, Condition=Condition 1 (Aorta) Ao 106/68/85 04:47 PM Recorded Pressure: Ao, HR=69, Condition=Condition 1 (Aorta) Ao 102/63/81 04:47 PM Coronary Dominance: right [email or web address] 04:48 PM Lesion found in Proximal RCA. Pre Stenosis: 50 Pre STEFANI Flow: 3: Complete and Brisk Flow/Perfusion [email or web address] 04:48 PM Lesion found in Right PDA. Pre Stenosis: 50 Pre STEFANI Flow: 3: Complete and Brisk Flow/Perfusion [email or web address] 04:49 PM Catheter removed [email or web address] 04:49 PM 5Fr Pigtail catheter inserted over the wire DNC [email or web address] 04:50 PM Pressure channel 1 zero failed. 04:50 PM Recorded Pressure: LV, HR=82, Condition=Condition 1 (Left Ventricle) LV 122/23/24 04:50 PM Recorded Pressure: LV, HR=83, Condition=Condition 1 (Left Ventricle) LV 120/20/35 04:50 PM Catheter selectively placed in left ventricle [email or web address] 04:50 PM Bolus angiogram of left Ventricle complete: 12 ml/sec for a total of 30 mls [email or web address] 04:51 PM HR=78 bpm, RAIE=407/70 mmhg, SpO2=94.0 %, Resp=7 B/min 04:51 PM Recorded Pressure: LV, Ao, HR=77, Condition=Condition 1 (Left Ventricle) LV 104/25/29, (Aorta) Ao 117/45/74 04:51 PM Catheter removed [email or web address] 04:52 PM Bolus angiogram of right Femoral complete: 4 ml/sec for a total of 7 mls [email or web address] 04:53 PM Procedure completed at 16:53 [email or web address] 04:53 PM Did you address STEFANI flow and Dominance? Yes [email or web address] 04:53 PM Sign out completed: Radiation Dose 480.37 mGy Fluoro Time: 1.21 Isovue 370 - 200ml contrast 75 ml given by Du Velez MD, [facility]. Complications: NoneCardiac Rehab Consult needed: NoConfirmed administered medications: Yes [email or web address] 04:53 PM Isovue 370 - 200ml,1 Bottle(s) used. [email or web address] 04:54 PM Estimated Blood Loss: minimal [email or web address] 04:54 PM Post ECG NSR [email or web address] 04:54 PM Post Blood Pressure 111/70 [email or web address] 04:54 PM Information taught Cardiac Cath [email or web address] 04:54 PM Education needs Procedure, Plan of Care, and Disease Process [email or web address] 04:54 PM Learning barriers :None [email or web address] 04:54 PM Education Methods Verbal [email or web address] 04:54 PM Education evaluation Able to repeat information [email or web address] 04:55 PM Heparin drip to be resumed at 4hrs post cath per Dr. Velez. [email or web address] 04:56 PM HR=68 bpm, VCZG=365/66 mmhg, SpO2=93.0 %, Resp=11 B/min, Comment=NSR 04:57 PM Time: 16:42LOC: 4 = Oriented but drowsy [email or web address] 04:57 PM Time: 16:42 Patient comfortable and pain free: Yes [email or web address] 05:01 PM HR=70 bpm, YSJH=647/76 mmhg, Resp=7 B/min, Comment=NSR 05:06 PM HR=70 bpm, OMPC=828/70 mmhg, Resp=7 B/min 05:06 PM Arterial sheath pulled using manual compression and V+ Pad for 15 minutes by Francesca Alan RN [email or web address] 05:08 PM Report given to Jose BREEN Pt taken to ICU Room #12. 17:08 [email or web address] 05:11 PM HR=81 bpm, XQMF=205/68 mmhg, Resp=8 B/min 05:16 PM Site status No bleeding/hematoma - Rt Groin as reported by Francesca Alan RN at 17:16 [email or web address] 05:16 PM Opsite applied [email or web address] 05:16 PM Patient out of room: 17:16 [email or web address] Complications Complication None Hemodynamics Pressures Site Systolic/A Wave Diastolic/V Wave Mean AO 83 48 62 AO 86 51 66 AO 106 68 85 AO 102 63 81 LV 122 23 24 LV 120 20 35 LV 104 25 29 AO 117 45 74 Post Procedure Information Blood Pressure: 111/70 mmHg Rhythm: NSR Post procedural instructions were not given Site Checks Time Location Status Staff Sheath In? Note 05:16 PM Rt Groin No bleeding/hematoma Francesca Alan RN Pulses Time Site Pre-Procedure Post-Procedure Note 01/20/2018 4:24:00 PM Bilateral DP & PT 1+ 1+ 01/20/2018 4:24:00 PM Rt Radial 1+ 1+ Updated by Ashley Castro, RT(R) on 01/20/2018 5:16:50 PM electronically signed on 01/20/2018 5:17:22 PM with status of Final
[2018-01-21] MEDS: Insulin Human Regular 100 UNIT in 0.9 % Sodium Chloride 100 ML IVC SCH ×3 (01:04→08:56)
[2018-01-21] MEDS: FentaNYL (PF) 1,000 MCG in 0.9 % Sodium Chloride 80 ML IVC SCH ×3 (02:31→14:33)
[2018-01-21 03:32] LABS: Basophils # 0.1 K/mcL (0.0-0.2); Basophils % 0.4 %; Eosinophils # 0.5 K/mcL (0.0-0.6); Eosinophils % 2.8 %; Hematocrit 31.1 % (35.3-44.9); Hemoglobin 10.1 g/dL (11.5-15.4); Immature Granulocytes % 1.4 % (0-4); Lymphocytes # 2.3 K/mcL (0.6-4.6); Lymphocytes % 12.8 %; Mean Corpuscular HGB Conc 32.5 g/dL (31.6-35.5); Mean Corpuscular Hemoglobin 27.9 pg (28.0-33.3); Mean Corpuscular Volume 85.9 fL (83.0-100.0); Mean Platelet Volume 10.4 fL (9.4-12.4); Monocytes # 1.1 K/mcL (0.0-1.3); Monocytes % 6.2 %; Neutrophils # 13.8 K/mcL (1.6-8.9); Platelet Count 310 K/mcL (140-400); Red Blood Count 3.62 M/mcL (3.82-4.97); Red Cell Distribution Width 15.8 % (11.5-14.5); Segmented Neutrophils % 76.4 %
[2018-01-21] MEDS: Lacri-Lube 3.5 GM TUBE BOTH EYES SCH ×6 (03:33→23:07)
[2018-01-21 03:37] LABS: VBG Ionized Calcium 1.03 mmol/L (1.15-1.35); VBG PH 7.29 pH Units (7.32-7.42)
[2018-01-21] MEDS: Norepinephrine 4 MG in D5% in Water 250 ML IVC SCH ×3 (03:46→23:07)
[2018-01-21 03:50] LABS: BUN/Creatinine Ratio 22 (6-26); Blood Urea Nitrogen 23 mg/dL (8-23); Calcium 8.1 mg/dL (8.6-10.3); Carbon Dioxide 24 mEq/L (23-29); Chloride 99 mEq/L (98-107); Glucose 288 mg/dL (70-105); Osmolality,Calculated 296 (280-300); Potassium 4.1 mEq/L (3.5-5.1); Sodium 136 mEq/L (136-145); eGFR For African Americans > 60 (> 60); eGFR For Non-African Americans 54 (> 60)
[2018-01-21 04:38] LABS: Phosphorous 5.3 mg/dL (2.7-4.5)
[2018-01-21 05:14] LABS: ABG Base Excess -1 mEq/L (-2 to 3); ABG HCO3 26 mEq/L (21-27); ABG Oxygen Saturation 93 % (95-98); ABG PCO2 49 mmHg (35-45); ABG PH 7.32 pH Units (7.32-7.45); ABG PO2 73 mmHg (85-104); ABG TCO2 27 mEq/L (20-26); Blood Gas Modality VC; Blood Gas PEEP 8 cm H2O; Blood Gas Respiration Rate 18; Blood Gas VT 550 cc
[2018-01-21] MEDS: Piperacillin/Tazobactam 3.375 GM in 0.9 % Sodium Chloride Mini Bag 100 ML IVPB SCH ×3 (07:10→23:06)
[2018-01-21] MEDS: Aspirin 81 MG TAB.CHEW PO SCH (07:12)
[2018-01-21] MEDS: Chlorhexidine Rinse 15 ML MOUTHWASH MM SCH ×2 (07:12→19:33)
[2018-01-21] MEDS: Pantoprazole 40 MG VIAL IVP SCH (07:12)
[2018-01-21] MEDS: Heparin 25,000 UNIT/500 ML D5W 25,000 UNIT/500 ML BAG IVC SCH (07:15)
--- NOTE | 2018-01-21 08:11 | Pulmonology Progress Note ---
Date of Encounter: 01/21/18 Time of Encounter: 08:11 Assessment and Plan (1) Acute respiratory failure with hypoxia and hypercapnia Current Visit: Yes Status: Acute Patient has been intubated and on ventilator for approximately 3 days she presented with acute hypoxic respiratory failure in the setting of acute cardiogenic pulmonary edema secondary to accelerated hypertension and non- STEMI. See below for my assessment and plan based upon organ system I spent 33min of Critical Care time with this patient. It involved decision making of high complexity to assess, manipulate, and support vital organ system failure and/or to prevent further life threatening deterioration of the patient' s condition. The time involved in the performance of separately reportable procedures was not counted toward critical care time. Management was reviewed during multidisciplinary critical care rounds. 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 Plan for spontaneous awake trial today. She has had periods of significant agitation which will require continual sedation we will attempt to decrease this as possible for goal Cuello 2-3. There is no focal deficit but I suspect patient has worsening delirium. Pulm: Acute hypoxic hypercapnic respiratory failure secondary to cardiogenic pulmonary edema complicated acutely by aspiration pneumonia she is on vent today with plan for spontaneous breathing trial once were able to lower sedation and pending vasopressor requirement off sedation Cards: The patient has cardiogenic shock and remains hemodynamically unstable on vasopressor I suspect there is a large component of this hypotension related to sedation and hopefully with weaning of this this will improved. We will have to continue norepinephrine for goal mean arterial pressure around 60; NSTEMI and she is status post left heart catheter without intervention. Not a candidate for beta cata because of hypotension and allergy. Continue aspirin we will stop heparin. Holding further aggressive diuresis because of hypotension. FEN-GI: Continue enteral nutrition per dietary recommendations continue GI prophylaxis to prevent stress ulcers Renal: Urine output monitored no evidence of kidney injury continued to trend electrolytes daily including potassium and magnesium and replace for goal 4.0 and 2.0 respectively ID: Patient has evidence of aspiration pneumonia and is on antimicrobial coverage with Zosyn she had gram-positive cocci that was concerning for staph and possibly MRSA was given a dose of vancomycin however final cultures show normal jack we will stop vancomycin and continue Zosyn to complete 7 days. Heme/Onc: Stop heparin infusion for ACS will start DVT prophylaxis with heparin Endo: Glucose Monitored and she has had severe hyperglycemia without evidence of DKA we are increasing and insulin infusion changing her enteral nutrition regimen per dietary and we will stop propofol which could be contributing Integ/MSK: Skin Care per routine ICU Nursing Protocol to prevent ulcers. Lines: All lines examined without evidence of infection : Dispo: Remain in ICU for ventilator management CODE: DNAR (2) Pneumonia Current Visit: Yes Status: Acute Qualifiers: Lung location: unspecified part of lung Qualified Code(s): J18.9 - Pneumonia, unspecified organism (3) Cardiogenic shock Current Visit: Yes Status: Acute (4) Sepsis Current Visit: Yes Status: Acute Qualifiers: Sepsis type: sepsis due to unspecified organism Qualified Code(s): A41.9 - Sepsis, unspecified organism (5) NSTEMI (non-ST elevated myocardial infarction) Current Visit: Yes Status: Acute (6) Type 2 diabetes mellitus Current Visit: Yes Status: Chronic Qualifiers: Diabetes mellitus assisted insulin use: with emt intermediate use Diabetes mellitus complication status: with hyperglycemia Qualified Code(s): E11.65 - Type 2 diabetes mellitus with hyperglycemia; Z79.4 - emt intermediate (current) use of insulin Subjective Principal diagnosis: Acute respiratory failure, NSTEMI Interval history: Overnight patient had periods of agitation requiring increase in sedation. She was also given diuretic. With increase in sedation she had worsening hemodynamic instability requiring higher dose of vasopressor (norepinephrine greater than 10 g). Left heart catheter was performed which showed moderate coronary artery disease disease which was diffuse but no specific lesion was identified as target of PCI. She is also had worsening hyperglycemia despite the use of a insulin infusion Objective PUL Vital signs: Last Vital Signs Temp 99.4 F 01/21/18 07:58 Pulse 74 01/21/18 07:00 Resp 19 01/21/18 07:00 BP 97/47 01/21/18 07:00 Pulse Ox 99 01/21/18 07:00 General appearance: other (The patient is sedated on the vent she appears comfortable) Eyes: nonicteric Neck: supple Auscultation: bilateral: diminished breath sounds, rales Cardiovascular: regular rate and rhythm Gastrointestinal: hypoactive bowel sounds, soft, non-tender Extremities: no cyanosis, pink and warm, pulses normal, edema non-focal exam, pupils equal and round Ventilator Settings Ventilator Settings: Ventilator Settings, Last 8 Hours Ventilator Mode VC+ Ventilator Mode VC+ Ventilator Mode VC+ Ventilator Mode VC+ Ventilator Mode VC+ Ventilator Mode VC+ Ventilator Mode VC+ Ventilator Tidal Volume 500 Setting Ventilator Tidal Volume 500 Setting Ventilator Tidal Volume 500 Setting Ventilator Tidal Volume 500 Setting Ventilator Tidal Volume 500 Setting Ventilator Tidal Volume 500 Setting Ventilator Tidal Volume 500 Setting Ventilator Tidal Volume 500 Setting Ventilator Tidal Volume 500 Setting Ventilator Tidal Volume 500 Setting Ventilator Respiratory Rate 18 Setting Ventilator Respiratory Rate 18 Setting Ventilator Respiratory Rate 18 Setting Ventilator Respiratory Rate 18 Setting Ventilator Respiratory Rate 18 Setting Ventilator Respiratory Rate 18 Setting Ventilator Respiratory Rate 18 Setting Ventilator Respiratory Rate 18 Setting Ventilator Respiratory Rate 18 Setting Ventilator Respiratory Rate 18 Setting Actual Respiratory Rate 19 Actual Respiratory Rate 20 Actual Respiratory Rate 19 Actual Respiratory Rate 18 Actual Respiratory Rate 18 Actual Respiratory Rate 18 Actual Respiratory Rate 20 Actual Respiratory Rate 18 Actual Respiratory Rate 18 Positive End Expiratory 8 Pressure Positive End Expiratory 8 Pressure Positive End Expiratory 8 Pressure Positive End Expiratory 8 Pressure Positive End Expiratory 8 Pressure Positive End Expiratory 8 Pressure Positive End Expiratory 8 Pressure Positive End Expiratory 8 Pressure Positive End Expiratory 8 Pressure Positive End Expiratory 8 Pressure Peak Inspiratory Airway 26 Pressure Peak Inspiratory Airway 26 Pressure Peak Inspiratory Airway 26 Pressure Peak Inspiratory Airway 26 Pressure Peak Inspiratory Airway 26 Pressure Peak Inspiratory Airway 26 Pressure Peak Inspiratory Airway 26 Pressure Peak Inspiratory Airway 34 Pressure Peak Inspiratory Airway 34 Pressure Results - Laboratory Findings CBC and BMP: 01/21/18 03:21 01/21/18 03:21 ABG ABG pH 7.32 pH Units (7.32-7.45) 01/21/18 05:11 ABG pCO2 49 mmHg (35-45) H 01/21/18 05:11 ABG pO2 73 mmHg (85-104) L 01/21/18 05:11 ABG O2 Saturation 93 % (95-98) L 01/21/18 05:11 PT/INR, D-dimer PT 11.6 Seconds (9.4-12.1) 01/18/18 11:35 Abnormal lab findings: Abnormal lab results WBC 18.0 K/mcL (4.3-11.1) H 01/21/18 03:21 RBC 3.62 M/mcL (3.82-4.97) L 01/21/18 03:21 Hgb 10.1 g/dL (11.5-15.4) L 01/21/18 03:21 Hct 31.1 % (35.3-44.9) L 01/21/18 03:21 MCH 27.9 pg (28.0-33.3) L 01/21/18 03:21 RDW 15.8 % (11.5-14.5) H 01/21/18 03:21 Neutrophils # 13.8 K/mcL (1.6-8.9) H 01/21/18 03:21 Nucleated RBCs/100 WBC 0.1 /100 WBC (0) H 01/20/18 04:00 Platelet Estimate Increased (Normal) H 01/18/18 02:53 APTT 49.0 Seconds (26.0-36.0) H 01/21/18 03:21 ABG pCO2 49 mmHg (35-45) H 01/21/18 05:11 ABG pO2 73 mmHg (85-104) L 01/21/18 05:11 ABG Total CO2 27 mEq/L (20-26) H 01/21/18 05:11 ABG O2 Saturation 93 % (95-98) L 01/21/18 05:11 VBG pH 7.29 pH Units (7.32-7.42) L 01/21/18 03:31 Est GFR (Non-Af Amer) 54 (> 60) L 01/21/18 03:21 Glucose 288 mg/dL (70-105) H 01/21/18 03:21 POC Glucose 348 mg/dL (70-99) H 01/21/18 08:00 Calcium 8.1 mg/dL (8.6-10.3) L 01/21/18 03:21 Venous Ioniz Calcium 1.03 mmol/L (1.15-1.35) L 01/21/18 03:31 Phosphorus 5.3 mg/dL (2.7-4.5) H 01/21/18 03:21 Alkaline Phosphatase 112 Units/L (34-104) H 01/18/18 02:53 Troponin I 2.17 ng/mL (< 0.04) H* 01/19/18 09:32 B-Natriuretic Peptide 243 pg/mL (Less than 100) H 01/18/18 02:53 Urine Clarity Cloudy (Clear) A 01/18/18 03:18 Ur Specific [place] 1.026 (1.010-1.025) H 01/18/18 03:18 Urine Protein >=300 mg/dL (Neg-Trace) H 01/18/18 03:18 Urine Glucose (UA) >=1000 mg/dL (Normal) H 01/18/18 03:18 Urine Blood Small (Negative) H 01/18/18 03:18 Urine Microscopic WBC 50-100 per hpf (0-3) H 01/18/18 03:18 Ur Squamous Epith Cells Many per lpf (None-Few) H 01/18/18 03:18 - Microbiology Findings Microbiology Findings: Microbiology, Last 48 Hours 01/18/18 20:20 Sputum Culture - Final Sputum - Clinical Findings Intake & Output: Intake & Output 01/20/18 01/21/18 01/21/18 23:59 07:59 15:59 Intake Total 1224 / 1224 2822 / 2822 76 / 76 Output Total 250 / 250 2700 / 2700 Balance 974 / 974 122 / 122 76 / 76 - VTE Documentation of Mechanical Device: Intermittent pneumatic compression device Consult Discharge Plan - Plan Referrals: Jann Payne MD [Primary Care Provider] -
--- NOTE | 2018-01-21 10:58 | Event Note ---
Date of Encounter: 01/21/18 Time of Encounter: 10:30 - Cardiology Event Note Seen and examined. [facility] reviewed with Dr. Cabral--non-obstructive CAD. No intervention warranted. EF 35%--recommend BB (toprol XL or coreg) and ACEi upon discharge if renal function/HR/BP will allow. WBC continues to increase, patient remains intubated and sedated. Continue supportive care per Pulmonology for sepsis. No further cardiac testing warranted, Cardiology will sign-off. Please call with questions. Will arrange for outpatient follow-up.
[2018-01-21] MEDS: Nitroglycerin 25 MG/250 ML INFUS..BTL IVC SCH (11:13)
[2018-01-21] MEDS: Insulin Human Regular 250 UNIT in 0.9 % Sodium Chloride 250 ML IVC SCH (11:31)
[2018-01-21] MEDS: *HR* Heparin 5,000 UNIT/ML VIAL SQ SCH ×2 (13:20→23:07)
[2018-01-21] MEDS ORDERED: Furosemide 40 MG/4 ML VIAL IVP ONE (13:38)
[2018-01-21] MEDS ORDERED: Furosemide 40 MG/4 ML VIAL ONE (13:40)
[2018-01-21] MEDS: Dexmedetomidine HCl 400 MCG/100 ML MLS IVC SCH ×2 (13:50→22:02)
[2018-01-21 18:19] LABS: Albumin 2.9 g/dL (3.5-5.7); Albumin/Globulin Ratio 1.1 (1.1-2.2); Bilirubin,Direct 0.1 mg/dL (0.0-0.2); Bilirubin,Indirect 0.4 mg/dL (0.0-1.2); Bilirubin,Total 0.5 mg/dL (0.3-1.0); Globulin 2.6 g/dL (2.4-3.5); Total Protein 5.5 g/dL (6.4-8.9)
[2018-01-22] MEDS: Lacri-Lube 3.5 GM TUBE BOTH EYES SCH ×6 (03:22→23:03)
[2018-01-22 03:29] LABS: VBG Ionized Calcium 1.09 mmol/L (1.15-1.35)
[2018-01-22 03:34] LABS: Basophils # 0.1 K/mcL (0.0-0.2); Basophils % 0.5 %; Eosinophils # 0.4 K/mcL (0.0-0.6); Eosinophils % 3.8 %; Hematocrit 29.4 % (35.3-44.9); Hemoglobin 9.1 g/dL (11.5-15.4); Immature Granulocytes % 1.2 % (0-4); Lymphocytes % 19.5 %; Mean Corpuscular Hemoglobin 26.6 pg (28.0-33.3); Mean Platelet Volume 10.5 fL (9.4-12.4); Monocytes # 0.9 K/mcL (0.0-1.3); Monocytes % 8.3 %; Platelet Count 244 K/mcL (140-400); Red Blood Count 3.42 M/mcL (3.82-4.97); Red Cell Distribution Width 15.5 % (11.5-14.5); Segmented Neutrophils % 66.7 %
[2018-01-22 03:47] LABS: BUN/Creatinine Ratio 23 (6-26); Blood Urea Nitrogen 19 mg/dL (8-23); Calcium 8.5 mg/dL (8.6-10.3); Carbon Dioxide 24 mEq/L (23-29); Chloride 106 mEq/L (98-107); Glucose 183 mg/dL (70-105); Magnesium 2.1 mg/dL (1.6-2.6); Osmolality,Calculated 293 (280-300); Potassium 4.1 mEq/L (3.5-5.1); Sodium 138 mEq/L (136-145); eGFR For African Americans > 60 (> 60); eGFR For Non-African Americans > 60 (> 60)
[2018-01-22] MEDS: Dexmedetomidine HCl 400 MCG/100 ML MLS IVC SCH ×2 (04:06→09:43)
[2018-01-22] MEDS: FentaNYL (PF) 1,000 MCG in 0.9 % Sodium Chloride 80 ML IVC SCH ×3 (05:03→23:04)
[2018-01-22 05:20] LABS: ABG Base Excess 3 mEq/L (-2 to 3); ABG HCO3 28 mEq/L (21-27); ABG Oxygen Saturation 96 % (95-98); ABG PCO2 42 mmHg (35-45); ABG PH 7.43 pH Units (7.32-7.45); ABG PO2 80 mmHg (85-104); ABG TCO2 29 mEq/L (20-26)
[2018-01-22] MEDS: *HR* Heparin 5,000 UNIT/ML VIAL SQ SCH ×3 (05:54→20:14)
--- NOTE | 2018-01-22 07:24 | Pulmonology Progress Note ---
Date of Encounter: 01/22/18 Time of Encounter: 07:24 Assessment and Plan (1) Acute respiratory failure with hypoxia and hypercapnia Current Visit: Yes Status: Acute See below for my assessment and plan based upon organ system Management was reviewed during multidisciplinary critical care rounds. 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 continue sedation as needed for goal Cuello 3 today focus on sleep wake cycle latter-day avoidance of further ARTIFICIAL INTELLIGENCE SPECIALIST medications may need atypical antipsychotic. Based upon clinical course. Head CT today Pulm: Acute hypoxic hypercapnic respiratory failure secondary to cardiogenic pulmonary edema complicated acutely by aspiration pneumonia she unfortunately agitation and delirium was impediment to liberation from the vent. Otherwise acceptable gas exchange on relatively low vent settings. I have been able to decrease her PEEP today as well FiO2 now 40% and PEEP of 5 Cards: She has been weaned off vasopressor. She presented with an NSTEMI went to [facility] without identifiable target lesion and recommended medical management she does have diffuse coronary artery disease. She had a candidate for beta cata because of allergy and tenuous blood pressure although she has been weaned off vasopressor. Okay for statin and aspirin. Appreciate cardiology recommendations. FEN-GI: Continue enteral nutrition per dietary recommendations continue GI prophylaxis to prevent stress ulcers Renal: Urine output monitored no evidence of kidney injury continued to trend electrolytes daily including potassium and magnesium and replace for goal 4.0 and 2.0 respectively ID: Patient has evidence of aspiration pneumonia and is on antimicrobial coverage with Zosyn had fever yesterday and was recultured white count trending down today I am inclined to make any adjustments in antibiotics at this time pending final culture results Heme/Onc: Continue DVT prophylaxis with heparin Endo: Glucose Monitored and she has had severe hyperglycemia which is improving with insulin infusion Integ/MSK: Skin Care per routine ICU Nursing Protocol to prevent ulcers. Lines: All lines examined without evidence of infection : Dispo: Remain in ICU for ventilator management CODE: DNAR (2) Delirium Current Visit: Yes Status: Acute (3) Pneumonia Current Visit: Yes Status: Acute Qualifiers: Lung location: unspecified part of lung Qualified Code(s): J18.9 - Pneumonia, unspecified organism (4) Cardiogenic shock Current Visit: Yes Status: Acute (5) Sepsis Current Visit: Yes Status: Acute Qualifiers: Sepsis type: sepsis due to unspecified organism Qualified Code(s): A41.9 - Sepsis, unspecified organism (6) NSTEMI (non-ST elevated myocardial infarction) Current Visit: Yes Status: Acute (7) Type 2 diabetes mellitus Current Visit: Yes Status: Chronic 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 She was able to complete spontaneous breathing trial today but unfortunately at time of liberation from the vent she became increasingly agitated to the point that it is unsafe to continue with the liberation trial and she had to be re-sedated. Inadvertently central line was dislodged slightly and there is some associated bleeding with this. Objective PUL Vital signs: Last Vital Signs Temp 98.2 F 01/22/18 04:00 Pulse 65 01/22/18 06:00 Resp 18 01/22/18 06:17 BP 86/51 01/22/18 06:17 Pulse Ox 97 01/22/18 06:17 General appearance: appears uncomfortable Neck: other (Bleeding around central venous catheter site that is stopped with pressure) Auscultation: bilateral: rales Cardiovascular: regular rate and rhythm Gastrointestinal: normoactive bowel sounds, soft Extremities: edema (Trace lower extremity edema) other (Patient is clearly agitated encephalopathic she is unable to can consistently follow commands her pupils are equal round and reactive to light she able to move all extremities without evidence of focal weakness) anxious Ventilator Settings Ventilator Settings: Ventilator Settings, Last 8 Hours Ventilator Mode A/C Ventilator Mode A/C Ventilator Mode A/C Ventilator Mode A/C Ventilator Mode A/C Ventilator Mode A/C Ventilator Mode A/C Ventilator Mode A/C Ventilator Tidal Volume 550 Setting Ventilator Tidal Volume 550 Setting Ventilator Tidal Volume 550 Setting Ventilator Tidal Volume 550 Setting Ventilator Tidal Volume 550 Setting Ventilator Tidal Volume 550 Setting Ventilator Tidal Volume 550 Setting Ventilator Tidal Volume 550 Setting Ventilator Tidal Volume 550 Setting Ventilator Tidal Volume 550 Setting Ventilator Tidal Volume 550 Setting Ventilator Respiratory Rate 16 Setting Ventilator Respiratory Rate 16 Setting Ventilator Respiratory Rate 16 Setting Ventilator Respiratory Rate 16 Setting Ventilator Respiratory Rate 16 Setting Ventilator Respiratory Rate 16 Setting Ventilator Respiratory Rate 16 Setting Ventilator Respiratory Rate 16 Setting Ventilator Respiratory Rate 16 Setting Ventilator Respiratory Rate 16 Setting Ventilator Respiratory Rate 16 Setting Actual Respiratory Rate 18 Actual Respiratory Rate 16 Actual Respiratory Rate 16 Actual Respiratory Rate 16 Actual Respiratory Rate 16 Actual Respiratory Rate 16 Actual Respiratory Rate 16 Actual Respiratory Rate 16 Actual Respiratory Rate 16 Actual Respiratory Rate 16 Actual Respiratory Rate 16 Positive End Expiratory 8 Pressure Positive End Expiratory 8 Pressure Positive End Expiratory 8 Pressure Positive End Expiratory 8 Pressure Positive End Expiratory 8 Pressure Positive End Expiratory 8 Pressure Positive End Expiratory 8 Pressure Positive End Expiratory 8 Pressure Positive End Expiratory 8 Pressure Positive End Expiratory 8 Pressure Positive End Expiratory 8 Pressure Positive End Expiratory 8 Pressure Peak Inspiratory Airway 19 Pressure Peak Inspiratory Airway 26 Pressure Peak Inspiratory Airway 25 Pressure Peak Inspiratory Airway 25 Pressure Peak Inspiratory Airway 25 Pressure Peak Inspiratory Airway 26 Pressure Peak Inspiratory Airway 25 Pressure Peak Inspiratory Airway 25 Pressure Peak Inspiratory Airway 25 Pressure Peak Inspiratory Airway 24 Pressure Peak Inspiratory Airway 25 Pressure Results - Laboratory Findings CBC and BMP: 01/22/18 03:15 01/22/18 03:15 ABG ABG pH 7.43 pH Units (7.32-7.45) 01/22/18 05:16 ABG pCO2 42 mmHg (35-45) 01/22/18 05:16 ABG pO2 80 mmHg (85-104) L 01/22/18 05:16 ABG O2 Saturation 96 % (95-98) 01/22/18 05:16 PT/INR, D-dimer PT 11.6 Seconds (9.4-12.1) 01/18/18 11:35 Abnormal lab findings: Abnormal lab results RBC 3.42 M/mcL (3.82-4.97) L 01/22/18 03:15 Hgb 9.1 g/dL (11.5-15.4) L 01/22/18 03:15 Hct 29.4 % (35.3-44.9) L 01/22/18 03:15 MCH 26.6 pg (28.0-33.3) L 01/22/18 03:15 MCHC 31.0 g/dL (31.6-35.5) L 01/22/18 03:15 RDW 15.5 % (11.5-14.5) H 01/22/18 03:15 Nucleated RBCs/100 WBC 0.1 /100 WBC (0) H 01/20/18 04:00 Platelet Estimate Increased (Normal) H 01/18/18 02:53 ABG pO2 80 mmHg (85-104) L 01/22/18 05:16 ABG HCO3 28 mEq/L (21-27) H 01/22/18 05:16 ABG Total CO2 29 mEq/L (20-26) H 01/22/18 05:16 VBG pH 7.29 pH Units (7.32-7.42) L 01/21/18 03:31 Glucose 183 mg/dL (70-105) H 01/22/18 03:15 POC Glucose 171 mg/dL (70-99) H 01/22/18 06:45 Calcium 8.5 mg/dL (8.6-10.3) L 01/22/18 03:15 Venous Ioniz Calcium 1.09 mmol/L (1.15-1.35) L 01/22/18 03:26 Troponin I 2.17 ng/mL (< 0.04) H* 01/19/18 09:32 B-Natriuretic Peptide 243 pg/mL (Less than 100) H 01/18/18 02:53 Serum Total Protein 5.5 g/dL (6.4-8.9) L 01/21/18 17:35 Albumin 2.9 g/dL (3.5-5.7) L 01/21/18 17:35 Urine Clarity Cloudy (Clear) A 01/18/18 03:18 Ur Specific [place] 1.026 (1.010-1.025) H 01/18/18 03:18 Urine Protein >=300 mg/dL (Neg-Trace) H 01/18/18 03:18 Urine Glucose (UA) >=1000 mg/dL (Normal) H 01/18/18 03:18 Urine Blood Small (Negative) H 01/18/18 03:18 Urine Microscopic WBC 50-100 per hpf (0-3) H 01/18/18 03:18 Ur Squamous Epith Cells Many per lpf (None-Few) H 01/18/18 03:18 - Microbiology Findings Microbiology Findings: Microbiology, Last 48 Hours 01/21/18 22:00 Sputum Culture - Preliminary Sputum 01/18/18 20:20 Sputum Culture - Final Sputum - Clinical Findings Intake & Output: Intake & Output 01/21/18 01/21/18 01/22/18 15:59 23:59 07:59 Intake Total 1844.5 / 1844.5 911 / 911 734 / 734 Output Total 325 / 325 1100 / 1100 100 / 100 Balance 1519.5 / 1519.5 -189 / -189 634 / 634 Weight 131 kg - VTE Documentation of Mechanical Device: Intermittent pneumatic compression device Consult Discharge Plan - Plan Referrals: Jann Payne MD [Primary Care Provider] -
[2018-01-22] MEDS: Piperacillin/Tazobactam 3.375 GM in 0.9 % Sodium Chloride Mini Bag 100 ML IVPB SCH ×3 (07:51→23:03)
[2018-01-22] MEDS: Chlorhexidine Rinse 15 ML MOUTHWASH MM SCH ×2 (07:52→20:14)
[2018-01-22] MEDS: Aspirin 81 MG TAB.CHEW PO SCH (07:52)
[2018-01-22] MEDS: Pantoprazole 40 MG VIAL IVP SCH (09:43)
[2018-01-22] MEDS: Nitroglycerin 25 MG/250 ML INFUS..BTL IVC SCH (11:16)
--- NOTE | 2018-01-22 12:03 | Invasive Diagnostic Lab Proc ---
Name: Renetta Michaels Date of Study: 01/20/2018 Date: 1950 Ht: 66.9in Medical Record#: [id number] Age: 67 Wt: 268.52lb Gender: Female BSA: 2.29 Order #: [id number] BMI: 42.19 Physicians Procedure Physician: Du Velez MD, FACC Referring MD: Jann Payne MD Referring MD: Staff Name Position Time In Ashley Castro RT (R) Monitor 04:25 PM SebastianWing RT (R) Scrub 04:25 PM Francesca Alan RN Seismology Teacher 04:25 PM Steve Butler RN Seismology Teacher 04:25 PM Indications Indication Non-Stemi Procedures Performed Procedure L HRT ARTERY/VENTRICLE ANGIO Pre-Procedure Checklist Informed consent is complete signed and on chart. H&P is on chart. ID band is on and ID verified with patient. Patient NPO for procedure The procedure was described for the patient and questions were answered. Blood Pressure: 117/67 ECG is on chart. Rhythm: NSR Plan of Care Patient will tolerate the procedure without complications. Adequate level of comfort will be maintained. Hemodynamics will remain stable Patient will recover from procedure without complications. Respiratory function will be maintained. Cardiac rhythm will remain stable. Patient temperature will be maintained. Patient and/or family have verbalized understanding of the procedure. Patient Education Chief Complaint/Reason for Test: Cardiac Cath Developmental Category: Geriatric (65+ years) Developmentally Appropriate for Age: Yes Learning Barriers: Sedated Education Needs: Procedure Educational Evaluation: Not ready to learn Intravenous Access Time IV Size Location DC'd Fluid/Drip Rate Units RN 04:24 PM 20g 1 1/4" Patent On Arrival Rt Antecubital 04:24 PM Central Line Rt Jugular Heparin 34.8 ml/hr Central Line Rt Jugular Levophed 7.5 ml/hr Central Line Rt Jugular Propofol 11.8 ml/hr Central Line Rt Jugular Insulin 14.4 ml/hr Allergies Beta-Blockers (Beta-Adrenergic Bloc Nickel LILLIAM Inhibitor Simvastatin enalaprilat NICKEL, LILLIAM INHIBITORS, ZOCOR Vital Signs Time BP (mmHg) HR (bpm) O2 Sat. RR (bpm) LOC 04:24 PM 117 / 67 70 93 % 16 04:27 PM / % 4 = Oriented but drowsy 04:27 PM / % 4 = Oriented but drowsy 04:42 PM / % 4 = Oriented but drowsy 04:21 PM 117 / 67 66 92 % 8 04:26 PM 113 / 76 75 92 % 12 04:31 PM 114 / 65 70 93 % 8 04:36 PM 97 / 68 69 93 % 8 04:41 PM 101 / 62 65 93 % 9 04:46 PM 116 / 66 69 93 % 8 04:51 PM 111 / 70 78 94 % 7 04:56 PM 109 / 66 68 93 % 11 05:01 PM 110 / 76 70 % 7 05:06 PM 116 / 70 70 % 7 05:11 PM 117 / 68 81 % 8 05:16 PM 115 / 67 75 % 10 Procedural Medications Time Medication Dose Units Method Given By 04:26 PM Oxygen L/min mechanical ventilator Respiratory 04:27 PM Propofol 11.8 ml/hr Intravenous 04:28 PM Insulin 14.5 ml/hr Intravenous 04:29 PM Heparin 34.8 ml/hr Intravenous 04:29 PM Levophed 7.5 ml/hr Intravenous 04:33 PM Lidocaine 2% 0.5 ml Subcutaneous Du Velez MD, FACC 04:38 PM Lidocaine 2% 18 ml Subcutaneous Du Velez MD, FACC ASA Classification: CLASS III- Severe systemic disease (i.e. prior AMI, diabetes with vascular complications, morbid obesity) Harshal Score Preprocedure Postprocedure Activity 2- Moves 4 extremities sustained head lift Activity 2- Moves 4 extremities sustained head lift Circulation 2- SBP +/= 20 points of pre-anesthetic level Circulation 2- SBP +/= 20 points of pre-anesthetic level Consciousness 2- Awake and alert oriented x 3 Consciousness 1- Responds to verbal stimuli drowsy O2 Saturation 2- Able to maintain O2 satruation of 92% on room air O2 Saturation 2- Able to maintain O2 satruation of 92% on room air Respiratory 1- Labored or limited respiration requires airway Respiratory 1- Labored or limited respiration requires airway Total Score 9 Total Score 8 Contrast Agent: Isovue Diagnostic Contrast: 75 ml Total Contrast: 75 ml Fluoro Dose: 480 mGy Activated Clotting Time Time Seconds to Clot 04:58 PM 150 Procedure Log Time Note Enter By 04:14 PM Reference ECG taken 04:15 PM Recorded ECG: HR=65 Condition=Condition 1 04:16 PM CathStat 04:16 PM Vitals capture started with the following parameters, Patient=Adult, Interval=5 min, Initial Eymazxnf=834 mmHg, Deflation Rate=3 mmHg, Cuff placed on Right Arm 04:19 PM Vitals capture stopped. 04:20 PM Vitals capture started with the following parameters, Patient=Adult, Interval=5 min, Initial Tsjeomcx=098 mmHg, Deflation Rate=3 mmHg, Cuff placed on Right Arm 04:20 PM Pt arrived to pathology laboratory director 1 at 16:20 [email or web address] 04:21 PM HR=66 bpm, TBSZ=941/67 mmhg, SpO2=92.0 %, Resp=8 B/min 04:23 PM Pressure channel 1 zero failed. 04:25 PM Pt arrived to pathology laboratory director 1 at 16:25 [email or web address] 04:25 PM Ashley Castro RT(R) Position: Monitor Time in: 16:25 [email or web address] 04:25 PM Wing Cortes RT (R) Position: Scrub Time in: 16:25 [email or web address] 04:25 PM Francesca Alan RN Position: Seismology Teacher Time in: 16:25 [email or web address] 04:25 PM Steve Butler RN Position: Seismology Teacher Time in: 16:25 [email or web address] 04:25 PM Patient charges- Angio tray pack, Navilyst 3mm J, Pulse Oximetry and ACIST tubing and transducer [email or web address] 04: PM Case Delayed No [email or web address] : PM Hair removed from procedure site in holding area using clippers. Right wrist prepped with Chloraprep by courtney Castro RT(R), [facility], then patient was draped. Skin intact. [email or web address] 04: PM Hair removed from procedure site in holding area using clippers. Right groin prepped with Chloraprep by Ashley Castro RT (R), then patient was draped. Skin intact. [email or web address] 04: PM HR=75 bpm, JQYC=906/76 mmhg, SpO2=92.0 %, Resp=12 B/min 04: PM Physician arrived 16: [email or web address] 04: PM Meet and greet completed [email or web address] : PM Sign in performed according to hospital policy. [email or web address] 04: PM Procedure start 16: [email or web address] 04: PM ASA Class CLASS III- Severe systemic disease (i.e. prior AMI, diabetes with vascular complications, morbid obesity) [email or web address] 04:26 PM Time: 16: Oxygen on at L/min per mechanical ventilator by Respiratory [email or web address] 04: PM Time: 16: Patient comfortable and pain free: Yes [email or web address] 04:27 PM Time: 16:LOC: 4 = Oriented but drowsy [email or web address] 04:28 PM Patient arrived at 16:27 with Propofol Intravenous drip @ 11.8 ml/hr [email or web address] 04:29 PM Patient arrived at 16:28 with Insulin Intravenous drip @ 14.5 ml/hr [email or web address] 04:29 PM Patient arrived at 16:29 with Heparin Intravenous drip @ 34.8 ml/hr [email or web address] 04:29 PM Patient arrived at 16:29 with Levophed Intravenous drip [email or web address] Pressure channel 1 zeroed. 04:30 PM Recorded ECG: HR=68 Condition=Condition 1 04:30 PM Reference ECG taken 04:31 PM HR=70 bpm, JOQE=556/65 mmhg, SpO2=93.0 %, Resp=8 B/min, Comment=NSR 04:32 PM Time out performed according to hospital policy [email or web address] 04[facility]33 PM Heparin drip turned off by Francesca Alan RN. [email or web address] 04:33 PM Time: 16:33 0.5 ml Lidocaine 2% to right radial Subcutaneous Given by Du Velez MD, [place] [facility] 04:34 PM Unsuccessful access attempt # 1 into the right Radial artery. Manual pressure applied to achieve hemostasis.. [email or web address] 04:35 PM Unsuccessful access attempt # 2 into the right Radial artery. Manual pressure applied to achieve hemostasis.. [email or web address] 04:36 PM HR=69 bpm, NIBP=97/68 mmhg, SpO2=93.0 %, Resp=8 B/min, Comment=NSR 04:37 PM Unsuccessful access attempt # 3 into the right Radial artery. Manual pressure applied to achieve hemostasis.. [email or web address] 04:38 PM Unable to advance wire through radial artery. [email or web address] 04:38 PM Time: 16:38 19 ml Lidocaine 2% to right groin Subcutaneous Given by Du Velez MD, [place] [facility] 04:41 PM HR=65 bpm, ZJXM=342/62 mmhg, SpO2=93.0 %, Resp=9 B/min, Comment=NSR 04:41 PM Unsuccessful access attempt # 1 into the right Femoral artery. Manual pressure applied to achieve hemostasis.. [email or web address] 04:42 PM Time: 16:27LOC: 4 = Oriented but drowsy [email or web address] 04:42 PM Time: 16:27 Patient comfortable and pain free: Yes [email or web address] 04:42 PM Access obtained by percutaneous puncture. 5Fr 10cm Terumo [place] sheath placed in right Femoral artery. [id number] [email or web address] 04:43 PM 0.035 145cm Navilyst 3mmJ wire [id number] [email or web address] 04:43 PM 5Fr FL 4 catheter inserted over the wire DN [email or web address] 04:43 PM LCA angiography performed in multiple views. [email or web address] 04:44 PM Recorded Pressure: Ao, HR=68, Condition=Condition 1 (Aorta) Ao 83/48/62 04:45 PM Recorded Pressure: Ao, HR=67, Condition=Condition 1 (Aorta) Ao 86/51/66 04:45 PM Lesion found in Mid Circumflex. Pre Stenosis: 50 Pre STEFANI Flow: 3: Complete and Brisk Flow/Perfusion [email or web address] 04:45 PM Lesion found in Mid LAD. Pre Stenosis: 80 Pre STEFANI Flow: 3: Complete and Brisk Flow/Perfusion [email or web address] 04:45 PM Catheter removed [email or web address] 04:45 PM 5Fr FR 4 catheter inserted over the wire DN [email or web address] 04:45 PM RCA angiography performed in multiple views. [email or web address] 04:46 PM HR=69 bpm, NWYG=273/66 mmhg, SpO2=93.0 %, Resp=8 B/min, Comment=NSR 04:46 PM Recorded Pressure: Ao, HR=72, Condition=Condition 1 (Aorta) Ao 106/68/85 04:47 PM Recorded Pressure: Ao, HR=69, Condition=Condition 1 (Aorta) Ao 102/63/81 04:47 PM Coronary Dominance: right [email or web address] 04:48 PM Lesion found in Proximal RCA. Pre Stenosis: 50 Pre STEFANI Flow: 3: Complete and Brisk Flow/Perfusion [email or web address] 04:48 PM Lesion found in Right PDA. Pre Stenosis: 50 Pre STEFANI Flow: 3: Complete and Brisk Flow/Perfusion [email or web address] 04:49 PM Catheter removed [email or web address] 04:49 PM 5Fr Pigtail catheter inserted over the wire DNC [email or web address] 04:50 PM Pressure channel 1 zero failed. 04:50 PM Recorded Pressure: LV, HR=82, Condition=Condition 1 (Left Ventricle) LV 122/23/24 04:50 PM Recorded Pressure: LV, HR=83, Condition=Condition 1 (Left Ventricle) LV 120/20/35 04:50 PM Catheter selectively placed in left ventricle [email or web address] 04:50 PM Bolus angiogram of left Ventricle complete: 12 ml/sec for a total of 30 mls [email or web address] 04:51 PM HR=78 bpm, MBLO=899/70 mmhg, SpO2=94.0 %, Resp=7 B/min 04:51 PM Recorded Pressure: LV, Ao, HR=77, Condition=Condition 1 (Left Ventricle) LV 104/25/29, (Aorta) Ao 117/45/74 04:51 PM Catheter removed [email or web address] 04:52 PM Bolus angiogram of right Femoral complete: 4 ml/sec for a total of 7 mls [email or web address] 04:53 PM Procedure completed at 16:53 [email or web address] 04:53 PM Did you address STEFANI flow and Dominance? Yes [email or web address] 04:53 PM Sign out completed: Radiation Dose 480.37 mGy Fluoro Time: 1.21 Isovue 370 - 200ml contrast 75 ml given by Du Velez MD, [facility]. Complications: NoneCardiac Rehab Consult needed: NoConfirmed administered medications: Yes [email or web address] 04:53 PM Isovue 370 - 200ml,1 Bottle(s) used. [email or web address] 04:54 PM Estimated Blood Loss: minimal [email or web address] 04:54 PM Post ECG NSR [email or web address] 04:54 PM Post Blood Pressure 111/70 [email or web address] 04:54 PM Information taught Cardiac Cath [email or web address] 04:54 PM Education needs Procedure, Plan of Care, and Disease Process [email or web address] 04:54 PM Learning barriers :None [email or web address] 04:54 PM Education Methods Verbal [email or web address] 04:54 PM Education evaluation Able to repeat information [email or web address] 04:55 PM Heparin drip to be resumed at 4hrs post cath per Dr. Velez. [email or web address] 04:56 PM HR=68 bpm, HAYX=631/66 mmhg, SpO2=93.0 %, Resp=11 B/min, Comment=NSR 04:57 PM Time: 16:42LOC: 4 = Oriented but drowsy [email or web address] 04:57 PM Time: 16:42 Patient comfortable and pain free: Yes [email or web address] 05:01 PM HR=70 bpm, AEPY=854/76 mmhg, Resp=7 B/min, Comment=NSR 05:06 PM HR=70 bpm, CHNX=697/70 mmhg, Resp=7 B/min 05:06 PM Arterial sheath pulled using manual compression and V+ Pad for 15 minutes by Francesca Alan RN [email or web address] 05:08 PM Report given to Jose BREEN Pt taken to ICU Room #12. 17:08 [email or web address] 05:11 PM HR=81 bpm, VNDB=417/68 mmhg, Resp=8 B/min 05:16 PM Site status No bleeding/hematoma - Rt Groin as reported by Francesca Alan RN at 17:16 [email or web address] 05:16 PM Opsite applied [email or web address] 05:16 PM Patient out of room: 17:16 [email or web address] 05:16 PM HR=75 bpm, AHDP=707/67 mmhg, Resp=10 B/min Equipment Used Size Length Diameter Item Category ACT Other Angio tray pack Other Terumo [place] sheath Navilyst 3mmJ wire V+Pad Patch Complications Complication None Hemodynamics Pressures Site Systolic/A Wave Diastolic/V Wave Mean AO 83 48 62 AO 86 51 66 AO 106 68 85 AO 102 63 81 LV 122 23 24 LV 120 20 35 LV 104 25 29 AO 117 45 74 Post Procedure Information Blood Pressure: 111/70 mmHg Rhythm: NSR Post procedural instructions were not given Site Checks Time Location Status Staff Sheath In? Note 05:16 PM Rt Groin No bleeding/hematoma Francesca Alan RN Pulses Time Site Pre-Procedure Post-Procedure Note 01/20/2018 4:24:00 PM Bilateral DP & PT 1+ 1+ 01/20/2018 4:24:00 PM Rt Radial 1+ 1+ Updated by Ashley Castro, RT(R) on 01/22/2018 11:53:30 AM electronically signed on 01/22/2018 11:57:37 AM with status of Final
[2018-01-22] MEDS: Sennosides 8.6 MG TABLET PO SCH ×2 (13:55→20:14)
[2018-01-22] MEDS: Insulin Human Regular 250 UNIT in 0.9 % Sodium Chloride 250 ML IVC SCH (23:14)
[2018-01-23 03:21] LABS: Basophils # 0.1 K/mcL (0.0-0.2); Basophils % 0.4 %; Eosinophils # 0.5 K/mcL (0.0-0.6); Eosinophils % 4.1 %; Hematocrit 28.3 % (35.3-44.9); Immature Granulocytes % 1.4 % (0-4); Lymphocytes # 1.2 K/mcL (0.6-4.6); Lymphocytes % 10.5 %; Mean Corpuscular HGB Conc 31.8 g/dL (31.6-35.5); Mean Corpuscular Hemoglobin 27.7 pg (28.0-33.3); Mean Corpuscular Volume 87.1 fL (83.0-100.0); Mean Platelet Volume 10.5 fL (9.4-12.4); Monocytes # 1.1 K/mcL (0.0-1.3); Monocytes % 9.6 %; Neutrophils # 8.4 K/mcL (1.6-8.9); Platelet Count 231 K/mcL (140-400); Red Blood Count 3.25 M/mcL (3.82-4.97); Red Cell Distribution Width 15.6 % (11.5-14.5)
[2018-01-23 03:28] LABS: VBG Ionized Calcium 1.14 mmol/L (1.15-1.35); VBG PH 7.34 pH Units (7.32-7.42)
[2018-01-23 03:48] LABS: BUN/Creatinine Ratio 28 (6-26); Blood Urea Nitrogen 20 mg/dL (8-23); Calcium 8.7 mg/dL (8.6-10.3); Carbon Dioxide 27 mEq/L (23-29); Chloride 106 mEq/L (98-107); Glucose 204 mg/dL (70-105); Osmolality,Calculated 294 (280-300); Potassium 4.5 mEq/L (3.5-5.1); Sodium 138 mEq/L (136-145); eGFR For African Americans > 60 (> 60); eGFR For Non-African Americans > 60 (> 60)
[2018-01-23 03:49] LABS: Magnesium 2.1 mg/dL (1.6-2.6); Phosphorous 3.8 mg/dL (2.7-4.5)
[2018-01-23] MEDS: Lacri-Lube 3.5 GM TUBE BOTH EYES SCH ×5 (03:52→19:24)
[2018-01-23 04:44] LABS: ABG Base Excess 5 mEq/L (-2 to 3); ABG HCO3 30 mEq/L (21-27); ABG Oxygen Saturation 94 % (95-98); ABG PCO2 45 mmHg (35-45); ABG PH 7.42 pH Units (7.32-7.45); ABG PO2 68 mmHg (85-104); ABG TCO2 31 mEq/L (20-26); Blood Gas Modality ASSIST CONTROL; Blood Gas PEEP 5 cm H2O; Blood Gas Respiration Rate 16; Blood Gas VT 550 cc
[2018-01-23] MEDS: FentaNYL (PF) 1,000 MCG in 0.9 % Sodium Chloride 80 ML IVC SCH ×3 (05:02→19:59)
[2018-01-23] MEDS: Dexmedetomidine HCl 400 MCG/100 ML MLS IVC SCH ×4 (05:03→19:55)
[2018-01-23] MEDS: *HR* Heparin 5,000 UNIT/ML VIAL SQ SCH ×3 (05:38→21:05)
[2018-01-23] MEDS ORDERED: *HR* Atropine Sulfate 1 MG/10 ML SYRINGE ONE (06:33)
--- NOTE | 2018-01-23 06:48 | Pulmonology Progress Note ---
Date of Encounter: 01/23/18 Time of Encounter: 06:48 Assessment and Plan (1) Acute respiratory failure with hypoxia and hypercapnia Current Visit: Yes Status: Acute See below for my assessment and plan based upon organ system Management was reviewed during multidisciplinary critical care rounds. TRANSMISSION TESTER: Acute TRANSMISSION TESTER failure secondary s/t delirium this is multifactorial including medication effect ICU psychosis head CT without acute process. She was started on atypical antipsychotic or what I fear may represent terminal delirium. Unfortunately we have been able to wean off sedation without immense agitation precipitating cardiovascular instability. Pulm: Acute hypoxic hypercapnic respiratory failure secondary to cardiogenic pulmonary edema complicated acutely by aspiration pneumonia not a candidate for spontaneous breathing trial a day because of agitation Otherwise acceptable gas exchange on relatively low vent settings. I have been able to decrease her PEEP today as well FiO2 now 40% and PEEP of 5 Cards: She has been weaned off vasopressor. She presented with an NSTEMI went to [facility] without identifiable target lesion and recommended medical management she does have diffuse coronary artery disease. She has a beta cata allergy Okay for statin and aspirin. Appreciate cardiology recommendations. Resume Lasix diuresis today FEN-GI: Continue enteral nutrition per dietary recommendations continue GI prophylaxis to prevent stress ulcers Renal: Urine output monitored no evidence of kidney injury continued to trend electrolytes daily including potassium and magnesium and replace for goal 4.0 and 2.0 respectively ID: Patient has evidence of aspiration pneumonia and is on antimicrobial coverage with Zosyn cultures thus far negative she remains afebrile Heme/Onc: Continue DVT prophylaxis with heparin Endo: Glucose Monitored and she has had severe hyperglycemia which is improving with insulin infusion Integ/MSK: Skin Care per routine ICU Nursing Protocol to prevent ulcers. Lines: All lines examined without evidence of infection : Dispo: Remain in ICU for ventilator management CODE: DNAR; I have concerns of the patient if she were able to speak to us would be very much against continued aggressive level of ICU care and prolonged mechanical ventilation based upon report from nursing staff who have known her personally I have also discussed the case with her boyfriend and nephew and will continue to do so no plans to de-escalate care at this time. As outlined above she has serious possibly terminal delirium we will continue to treat this as aggressively as we can but overall trend has been poor. (2) Delirium Current Visit: Yes Status: Acute (3) Pneumonia Current Visit: Yes Status: Acute Qualifiers: Lung location: unspecified part of lung Qualified Code(s): J18.9 - Pneumonia, unspecified organism (4) Cardiogenic shock Current Visit: Yes Status: Acute (5) Sepsis Current Visit: Yes Status: Acute Qualifiers: Sepsis type: sepsis due to unspecified organism Qualified Code(s): A41.9 - Sepsis, unspecified organism (6) NSTEMI (non-ST elevated myocardial infarction) Current Visit: Yes Status: Acute (7) Type 2 diabetes mellitus Current Visit: Yes Status: Chronic Qualifiers: Diabetes mellitus terminal make up operator insulin use: with terminal make up operator use Diabetes mellitus complication status: with hyperglycemia Qualified Code(s): E11.65 - Type 2 diabetes mellitus with hyperglycemia; Z79.4 - correction (current) use of insulin Subjective Principal diagnosis: Acute respiratory failure, NSTEMI Interval history: She had to be deeply sedated overnight again for a period of severe agitation with repeat resultant vagal effect bradycardia and sinus possible nearly precipitating cardiac arrest unfortunately this was self-limited and resolved after sedation. She was started on Seroquel overnight. Otherwise hemodynamically stable Objective PUL Vital signs: Last Vital Signs Temp 99.3 F 01/23/18 03:51 Pulse 62 01/23/18 05:47 Resp 16 01/23/18 06:10 BP 92/58 01/23/18 06:10 Pulse Ox 95 01/23/18 06:10 General appearance: other (She is deeply sedated on vent without response to voice she is able to move slightly with the sternal rub) Eyes: nonicteric Neck: other (Right internal jugular CVC without evidence of infection in satisfactory position) Effort: normal Cardiovascular: regular rate and rhythm Gastrointestinal: soft, non-tender Integumentary: normal Extremities: edema (1+ lower extremity edema today) Musculoskeletal: no deformities pupils equal and round, unable to assess due to mental status Ventilator Settings Ventilator Settings: Ventilator Settings, Last 8 Hours Ventilator Mode A/C Ventilator Mode A/C Ventilator Mode VC+ Ventilator Mode A/C Ventilator Mode A/C Ventilator Mode A/C Ventilator Mode A/C Ventilator Mode A/C Ventilator Mode A/C Ventilator Tidal Volume 550 Setting Ventilator Tidal Volume 550 Setting Ventilator Tidal Volume 550 Setting Ventilator Tidal Volume 550 Setting Ventilator Tidal Volume 550 Setting Ventilator Tidal Volume 550 Setting Ventilator Tidal Volume 550 Setting Ventilator Tidal Volume 550 Setting Ventilator Tidal Volume 550 Setting Ventilator Tidal Volume 550 Setting Ventilator Tidal Volume 550 Setting Ventilator Tidal Volume 550 Setting Ventilator Respiratory Rate 16 Setting Ventilator Respiratory Rate 16 Setting Ventilator Respiratory Rate 16 Setting Ventilator Respiratory Rate 16 Setting Ventilator Respiratory Rate 16 Setting Ventilator Respiratory Rate 16 Setting Ventilator Respiratory Rate 16 Setting Ventilator Respiratory Rate 16 Setting Ventilator Respiratory Rate 16 Setting Ventilator Respiratory Rate 16 Setting Ventilator Respiratory Rate 16 Setting Ventilator Respiratory Rate 16 Setting Actual Respiratory Rate 16 Actual Respiratory Rate 16 Actual Respiratory Rate 16 Actual Respiratory Rate 16 Actual Respiratory Rate 20 Actual Respiratory Rate 16 Actual Respiratory Rate 16 Actual Respiratory Rate 16 Actual Respiratory Rate 16 Actual Respiratory Rate 16 Actual Respiratory Rate 16 Positive End Expiratory 5 Pressure Positive End Expiratory 5 Pressure Positive End Expiratory 5 Pressure Positive End Expiratory 5 Pressure Positive End Expiratory 5 Pressure Positive End Expiratory 5 Pressure Positive End Expiratory 5 Pressure Positive End Expiratory 5 Pressure Positive End Expiratory 5 Pressure Positive End Expiratory 5 Pressure Positive End Expiratory 5 Pressure Positive End Expiratory 5 Pressure Peak Inspiratory Airway 25 Pressure Peak Inspiratory Airway 25 Pressure Peak Inspiratory Airway 39 Pressure Peak Inspiratory Airway 39 Pressure Peak Inspiratory Airway 52 Pressure Peak Inspiratory Airway 33 Pressure Peak Inspiratory Airway 33 Pressure Peak Inspiratory Airway 25 Pressure Peak Inspiratory Airway 25 Pressure Peak Inspiratory Airway 25 Pressure Peak Inspiratory Airway 27 Pressure Results - Laboratory Findings CBC and BMP: 01/23/18 03:15 01/23/18 03:15 ABG ABG pH 7.42 pH Units (7.32-7.45) 01/23/18 04:40 ABG pCO2 45 mmHg (35-45) 01/23/18 04:40 ABG pO2 68 mmHg (85-104) L 01/23/18 04:40 ABG O2 Saturation 94 % (95-98) L 01/23/18 04:40 PT/INR, D-dimer PT 11.6 Seconds (9.4-12.1) 01/18/18 11:35 Abnormal lab findings: Abnormal lab results WBC 11.3 K/mcL (4.3-11.1) H 01/23/18 03:15 RBC 3.25 M/mcL (3.82-4.97) L 01/23/18 03:15 Hgb 9.0 g/dL (11.5-15.4) L 01/23/18 03:15 Hct 28.3 % (35.3-44.9) L 01/23/18 03:15 MCH 27.7 pg (28.0-33.3) L 01/23/18 03:15 RDW 15.6 % (11.5-14.5) H 01/23/18 03:15 Nucleated RBCs/100 WBC 0.1 /100 WBC (0) H 01/20/18 04:00 Platelet Estimate Increased (Normal) H 01/18/18 02:53 ABG pO2 68 mmHg (85-104) L 01/23/18 04:40 ABG HCO3 30 mEq/L (21-27) H 01/23/18 04:40 ABG Total CO2 31 mEq/L (20-26) H 01/23/18 04:40 ABG O2 Saturation 94 % (95-98) L 01/23/18 04:40 ABG Base Excess 5 mEq/L (-2 to 3) H 01/23/18 04:40 BUN/Creatinine Ratio 28 (6-26) H 01/23/18 03:15 Glucose 204 mg/dL (70-105) H 01/23/18 03:15 POC Glucose 156 mg/dL (70-99) H 01/23/18 06:43 Venous Ioniz Calcium 1.14 mmol/L (1.15-1.35) L 01/23/18 03:23 Troponin I 2.17 ng/mL (< 0.04) H* 01/19/18 09:32 B-Natriuretic Peptide 243 pg/mL (Less than 100) H 01/18/18 02:53 Serum Total Protein 5.5 g/dL (6.4-8.9) L 01/21/18 17:35 Albumin 2.9 g/dL (3.5-5.7) L 01/21/18 17:35 Urine Clarity Cloudy (Clear) A 01/18/18 03:18 Ur Specific [place] 1.026 (1.010-1.025) H 01/18/18 03:18 Urine Protein >=300 mg/dL (Neg-Trace) H 01/18/18 03:18 Urine Glucose (UA) >=1000 mg/dL (Normal) H 01/18/18 03:18 Urine Blood Small (Negative) H 01/18/18 03:18 Urine Microscopic WBC 50-100 per hpf (0-3) H 01/18/18 03:18 Ur Squamous Epith Cells Many per lpf (None-Few) H 01/18/18 03:18 - Microbiology Findings Microbiology Findings: Microbiology, Last 48 Hours 01/21/18 22:00 Sputum Culture - Preliminary Sputum 01/21/18 16:10 Urine Culture - Preliminary Urine,Catheterized No growth. 01/18/18 20:20 Sputum Culture - Final Sputum - Clinical Findings Intake & Output: Intake & Output 01/22/18 01/22/18 01/23/18 15:59 23:59 07:59 Intake Total 584.5 / 584.5 1060.4 / 1060.4 846 / 846 Output Total 100 / 100 275 / 275 125 / 125 Balance 484.5 / 484.5 785.4 / 785.4 721 / 721 Weight 132.9 kg - VTE Documentation of Mechanical Device: Intermittent pneumatic compression device Consult Discharge Plan - Plan Referrals: Jann Payne MD [Primary Care Provider] -
[2018-01-23] MEDS: Aspirin 81 MG TAB.CHEW PO SCH (08:18)
[2018-01-23] MEDS: Chlorhexidine Rinse 15 ML MOUTHWASH MM SCH ×2 (08:18→19:23)
[2018-01-23] MEDS: Sennosides 8.6 MG TABLET PO SCH ×2 (08:18→19:24)
[2018-01-23] MEDS: Piperacillin/Tazobactam 3.375 GM in 0.9 % Sodium Chloride Mini Bag 100 ML IVPB SCH ×3 (08:19→22:59)
[2018-01-23] MEDS: Pantoprazole 40 MG VIAL IVP SCH (08:32)
[2018-01-23] MEDS ORDERED: Furosemide 40 MG/4 ML VIAL IVP ONE (08:57)
[2018-01-23] MEDS: Nitroglycerin 25 MG/250 ML INFUS..BTL IVC SCH (11:41)
[2018-01-23] MEDS: Insulin Human Regular 250 UNIT in 0.9 % Sodium Chloride 250 ML IVC SCH (11:42)
--- NOTE | 2018-01-23 12:39 | Event Note ---
Date of Encounter: 01/23/18 Time of Encounter: 12:35 I had a meeting with the patient's verbally assigned healthcare power of real estate attorney her nephew Edilberto and her boyfriend Nba along with the bedside ICU nurse Amanda in the ICU office. I explained that the patient has had prolonged intubation complicated by severe progressive delirium. Both the power of real estate attorney (Edilberto) and the patient's boyfriend were in agreement that she would not want to be continued on mechanical ventilation in this type of situation. 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 This is also been confirmed on several accounts by nurses who have worked with her in the past or presently working in the ICU. And in fact both Edilberto and Nba attested to the fact that she understood that she had multiple medical problems that she needed was aware of and had anticipated her even prior to this admission to the hospital. Edilberto the verbally assigned POA will discuss with her other nieces and nephews regarding current course of action likely plan is for extubation in the next 24-48 hours without reintubation.
[2018-01-24] MEDS: Lacri-Lube 3.5 GM TUBE BOTH EYES SCH ×7 (00:44→23:18)
[2018-01-24] MEDS: Dexmedetomidine HCl 400 MCG/100 ML MLS IVC SCH ×4 (01:51→21:26)
[2018-01-24] MEDS: FentaNYL (PF) 1,000 MCG in 0.9 % Sodium Chloride 80 ML IVC SCH ×3 (03:13→20:16)
[2018-01-24] MEDS: Nitroglycerin 25 MG/250 ML INFUS..BTL IVC SCH ×2 (04:10→23:22)
[2018-01-24 04:16] LABS: Basophils # 0.1 K/mcL (0.0-0.2); Basophils % 0.4 %; Eosinophils # 0.4 K/mcL (0.0-0.6); Eosinophils % 3.1 %; Hematocrit 28.7 % (35.3-44.9); Hemoglobin 8.7 g/dL (11.5-15.4); Immature Granulocytes % 1.6 % (0-4); Lymphocytes # 1.7 K/mcL (0.6-4.6); Mean Corpuscular HGB Conc 30.3 g/dL (31.6-35.5); Mean Corpuscular Hemoglobin 26.7 pg (28.0-33.3); Mean Platelet Volume 10.8 fL (9.4-12.4); Monocytes # 1.2 K/mcL (0.0-1.3); Monocytes % 9.5 %; Neutrophils # 8.9 K/mcL (1.6-8.9); Platelet Count 246 K/mcL (140-400); Red Blood Count 3.26 M/mcL (3.82-4.97); Red Cell Distribution Width 15.7 % (11.5-14.5); Segmented Neutrophils % 71.4 %
[2018-01-24 04:38] LABS: BUN/Creatinine Ratio 24 (6-26); Blood Urea Nitrogen 24 mg/dL (8-23); Calcium 8.6 mg/dL (8.6-10.3); Carbon Dioxide 25 mEq/L (23-29); Chloride 106 mEq/L (98-107); Glucose 178 mg/dL (70-105); Magnesium 2.1 mg/dL (1.6-2.6); Osmolality,Calculated 294 (280-300); Phosphorous 5.7 mg/dL (2.7-4.5); Potassium 4.2 mEq/L (3.5-5.1); Sodium 138 mEq/L (136-145); eGFR For African Americans > 60 (> 60); eGFR For Non-African Americans 57 (> 60)
[2018-01-24] MEDS: *HR* Heparin 5,000 UNIT/ML VIAL SQ SCH ×3 (05:42→23:14)
--- NOTE | 2018-01-24 06:48 | Pulmonology Progress Note ---
Date of Encounter: 01/24/18 Time of Encounter: 06:48 Assessment and Plan (1) Acute respiratory failure with hypoxia and hypercapnia Current Visit: Yes Status: Acute See below for my assessment and plan based upon organ system Management was reviewed during multidisciplinary critical care rounds. CRANE HELPER: Acute CRANE HELPER failure secondary s/t delirium this is multifactorial including medication effect ICU psychosis head CT without acute process. Cont atypical antipsychotic or what I fear may represent terminal delirium. Unfortunately we have been able to wean off sedation without immense agitation precipitating cardiovascular instability. Pulm: Acute hypoxic hypercapnic respiratory failure secondary to cardiogenic pulmonary edema complicated acutely by aspiration pneumonia not a candidate for spontaneous breathing trial a day because of agitation Otherwise acceptable gas exchange on relatively low vent settings. I have been able to decrease her PEEP today as well FiO2 now 40% and PEEP of 5 Cards: She has been weaned off vasopressor. She presented with an NSTEMI went to [facility] without identifiable target lesion and recommended medical management she does have diffuse coronary artery disease. She has a beta cata allergy Okay for statin and aspirin. Appreciate cardiology recommendations. Cont Lasix diuresis today FEN-GI: Continue enteral nutrition per dietary recommendations continue GI prophylaxis to prevent stress ulcers Renal: Urine output monitored no evidence of kidney injury continued to trend electrolytes daily including potassium and magnesium and replace for goal 4.0 and 2.0 respectively ID: Patient has evidence of aspiration pneumonia and is on antimicrobial coverage with Zosyn cultures thus far negative Heme/Onc: Continue DVT prophylaxis with heparin Endo: Glucose Monitored cont insulin infusion Integ/MSK: Skin Care per routine ICU Nursing Protocol to prevent ulcers. Lines: All lines examined without evidence of infection : Dispo: Remain in ICU for ventilator management CODE: DNAR; I had a productive family meeting with the patient's verbally designated power of finance attorney her nephew Edilberto and silvestre Arango. They are both in agreement with the patient would not want to continue in this state and recommendations have been made for extubation without reintubation. Edilberto wanted to discuss with a couple of other of her family members which include a niece and nephew and possibly a sister they have generally been estranged from her life. Plan to discuss with Edilberto regarding plan moving forward today. Overall prognosis is poor (2) Delirium Current Visit: Yes Status: Acute (3) Pneumonia Current Visit: Yes Status: Acute Qualifiers: Pneumonia type: due to unspecified organism Lung location: unspecified part of lung Qualified Code(s): J18.9 - Pneumonia, unspecified organism (4) Cardiogenic shock Current Visit: Yes Status: Acute (5) Sepsis Current Visit: Yes Status: Acute Qualifiers: Sepsis type: sepsis due to unspecified organism Qualified Code(s): A41.9 - Sepsis, unspecified organism (6) NSTEMI (non-ST elevated myocardial infarction) Current Visit: Yes Status: Acute (7) Type 2 diabetes mellitus Current Visit: Yes Status: Chronic Qualifiers: Diabetes mellitus watermaster insulin use: with watermaster use Diabetes mellitus complication status: with hyperglycemia Qualified Code(s): E11.65 - Type 2 diabetes mellitus with hyperglycemia; Z79.4 - skilled nursing (current) use of insulin Subjective Principal diagnosis: Acute respiratory failure, NSTEMI Interval history: She remains on sedation. Hemodynamically stable. Low-grade temperature increase overnight (on one occasion). Otherwise no changes Objective PUL Vital signs: Last Vital Signs Temp 100.4 F H 01/24/18 05:15 Pulse 73 01/24/18 05:49 Resp 17 01/24/18 06:20 BP 94/64 01/24/18 06:20 Pulse Ox 94 01/24/18 06:20 General appearance: other (She is sedated on vent. She does have spontaneous movement of all extremities but is unable to open her eyes to my voice command) ENT: other (Endotracheal tube in satisfactory position right IJ CVC catheter without evidence of infection) Effort: mildly labored Auscultation: bilateral: rales Cardiovascular: regular rate and rhythm Gastrointestinal: soft, non-tender Extremities: pink and warm, no ischemia or petechiae, edema pupils equal and round Ventilator Settings Ventilator Settings: Ventilator Settings, Last 8 Hours Ventilator Mode A/C Ventilator Mode A/C Ventilator Mode A/C Ventilator Mode A/C Ventilator Mode A/C Ventilator Mode A/C Ventilator Mode A/C Ventilator Mode A/C Ventilator Tidal Volume 500 Setting Ventilator Tidal Volume 500 Setting Ventilator Tidal Volume 500 Setting Ventilator Tidal Volume 500 Setting Ventilator Tidal Volume 500 Setting Ventilator Tidal Volume 500 Setting Ventilator Tidal Volume 500 Setting Ventilator Tidal Volume 500 Setting Ventilator Tidal Volume 500 Setting Ventilator Tidal Volume 500 Setting Ventilator Tidal Volume 500 Setting Ventilator Tidal Volume 500 Setting Ventilator Respiratory Rate 16 Setting Ventilator Respiratory Rate 16 Setting Ventilator Respiratory Rate 16 Setting Ventilator Respiratory Rate 16 Setting Ventilator Respiratory Rate 16 Setting Ventilator Respiratory Rate 16 Setting Ventilator Respiratory Rate 16 Setting Ventilator Respiratory Rate 16 Setting Ventilator Respiratory Rate 16 Setting Ventilator Respiratory Rate 16 Setting Ventilator Respiratory Rate 16 Setting Ventilator Respiratory Rate 16 Setting Actual Respiratory Rate 16 Actual Respiratory Rate 16 Actual Respiratory Rate 16 Actual Respiratory Rate 18 Actual Respiratory Rate 23 Actual Respiratory Rate 17 Actual Respiratory Rate 16 Actual Respiratory Rate 16 Actual Respiratory Rate 17 Actual Respiratory Rate 17 Actual Respiratory Rate 16 Actual Respiratory Rate 16 Positive End Expiratory 5 Pressure Positive End Expiratory 5 Pressure Positive End Expiratory 5 Pressure Positive End Expiratory 5 Pressure Positive End Expiratory 5 Pressure Positive End Expiratory 5 Pressure Positive End Expiratory 5 Pressure Positive End Expiratory 5 Pressure Positive End Expiratory 5 Pressure Positive End Expiratory 5 Pressure Positive End Expiratory 5 Pressure Positive End Expiratory 5 Pressure Peak Inspiratory Airway 37 Pressure Peak Inspiratory Airway 41 Pressure Peak Inspiratory Airway 42 Pressure Peak Inspiratory Airway 35 Pressure Peak Inspiratory Airway 32 Pressure Peak Inspiratory Airway 44 Pressure Peak Inspiratory Airway 45 Pressure Peak Inspiratory Airway 29 Pressure Peak Inspiratory Airway 42 Pressure Peak Inspiratory Airway 49 Pressure Peak Inspiratory Airway 39 Pressure Peak Inspiratory Airway 49 Pressure Results - Laboratory Findings CBC and BMP: 01/24/18 03:54 01/24/18 03:54 ABG ABG pH 7.42 pH Units (7.32-7.45) 01/23/18 04:40 ABG pCO2 45 mmHg (35-45) 01/23/18 04:40 ABG pO2 68 mmHg (85-104) L 01/23/18 04:40 ABG O2 Saturation 94 % (95-98) L 01/23/18 04:40 PT/INR, D-dimer PT 11.6 Seconds (9.4-12.1) 01/18/18 11:35 Abnormal lab findings: Abnormal lab results WBC 12.4 K/mcL (4.3-11.1) H 01/24/18 03:54 RBC 3.26 M/mcL (3.82-4.97) L 01/24/18 03:54 Hgb 8.7 g/dL (11.5-15.4) L 01/24/18 03:54 Hct 28.7 % (35.3-44.9) L 01/24/18 03:54 MCH 26.7 pg (28.0-33.3) L 01/24/18 03:54 MCHC 30.3 g/dL (31.6-35.5) L 01/24/18 03:54 RDW 15.7 % (11.5-14.5) H 01/24/18 03:54 Nucleated RBCs/100 WBC 0.1 /100 WBC (0) H 01/20/18 04:00 Platelet Estimate Increased (Normal) H 01/18/18 02:53 ABG pO2 68 mmHg (85-104) L 01/23/18 04:40 ABG HCO3 30 mEq/L (21-27) H 01/23/18 04:40 ABG Total CO2 31 mEq/L (20-26) H 01/23/18 04:40 ABG O2 Saturation 94 % (95-98) L 01/23/18 04:40 ABG Base Excess 5 mEq/L (-2 to 3) H 01/23/18 04:40 BUN 24 mg/dL (8-23) H 01/24/18 03:54 Est GFR (Non-Af Amer) 57 (> 60) L 01/24/18 03:54 Glucose 178 mg/dL (70-105) H 01/24/18 03:54 POC Glucose 168 mg/dL (70-99) H 01/24/18 05:48 Venous Ioniz Calcium 1.14 mmol/L (1.15-1.35) L 01/23/18 03:23 Phosphorus 5.7 mg/dL (2.7-4.5) H 01/24/18 03:54 Troponin I 2.17 ng/mL (< 0.04) H* 01/19/18 09:32 B-Natriuretic Peptide 243 pg/mL (Less than 100) H 01/18/18 02:53 Serum Total Protein 5.5 g/dL (6.4-8.9) L 01/21/18 17:35 Albumin 2.9 g/dL (3.5-5.7) L 01/21/18 17:35 Urine Clarity Cloudy (Clear) A 01/18/18 03:18 Ur Specific [place] 1.026 (1.010-1.025) H 01/18/18 03:18 Urine Protein >=300 mg/dL (Neg-Trace) H 01/18/18 03:18 Urine Glucose (UA) >=1000 mg/dL (Normal) H 01/18/18 03:18 Urine Blood Small (Negative) H 01/18/18 03:18 Urine Microscopic WBC 50-100 per hpf (0-3) H 01/18/18 03:18 Ur Squamous Epith Cells Many per lpf (None-Few) H 01/18/18 03:18 - Microbiology Findings Microbiology Findings: Microbiology, Last 48 Hours 01/21/18 22:00 Sputum Culture - Final Sputum 01/21/18 16:10 Urine Culture - Final Urine,Catheterized No growth. 01/21/18 15:55 Blood Culture - Preliminary Central Venous Catheter No growth. 01/21/18 16:03 Blood Culture - Preliminary Central Venous Catheter No growth. - Clinical Findings Intake & Output: Intake & Output 01/23/18 01/23/18 01/24/18 15:59 23:59 07:59 Intake Total 912 / 912 1705.9 / 1705.9 838.3 / 838.3 Output Total 225 / 225 875 / 875 200 / 200 Balance 687 / 687 830.9 / 830.9 638.3 / 638.3 Weight 136 kg - VTE Documentation of Mechanical Device: Intermittent pneumatic compression device Consult Discharge Plan - Plan Referrals: Jann Payne MD [Primary Care Provider] -
[2018-01-24] MEDS: Pantoprazole 40 MG VIAL IVP SCH (08:06)
[2018-01-24] MEDS: Sennosides 8.6 MG TABLET PO SCH ×2 (08:07→19:58)
[2018-01-24] MEDS: Piperacillin/Tazobactam 3.375 GM in 0.9 % Sodium Chloride Mini Bag 100 ML IVPB SCH ×3 (08:07→23:15)
[2018-01-24] MEDS: Aspirin 81 MG TAB.CHEW PO SCH (08:07)
[2018-01-24] MEDS: Chlorhexidine Rinse 15 ML MOUTHWASH MM SCH ×2 (08:07→19:58)
[2018-01-24] MEDS: Norepinephrine 4 MG in D5% in Water 250 ML IVC SCH (12:20)
[2018-01-24] MEDS: Insulin Human Regular 250 UNIT in 0.9 % Sodium Chloride 250 ML IVC SCH (20:05)
[2018-01-25] MEDS: Insulin Human Regular 250 UNIT in 0.9 % Sodium Chloride 250 ML IVC SCH (01:34)
[2018-01-25] MEDS: Lacri-Lube 3.5 GM TUBE BOTH EYES SCH ×3 (03:54→13:04)
[2018-01-25 04:08] LABS: Basophils # 0.1 K/mcL (0.0-0.2); Basophils % 0.4 %; Eosinophils # 0.3 K/mcL (0.0-0.6); Eosinophils % 2.2 %; Hematocrit 26.7 % (35.3-44.9); Hemoglobin 8.2 g/dL (11.5-15.4); Immature Granulocytes % 2.8 % (0-4); Lymphocytes # 1.6 K/mcL (0.6-4.6); Lymphocytes % 11.4 %; Mean Corpuscular HGB Conc 30.7 g/dL (31.6-35.5); Mean Corpuscular Hemoglobin 27.2 pg (28.0-33.3); Mean Corpuscular Volume 88.4 fL (83.0-100.0); Mean Platelet Volume 11.3 fL (9.4-12.4); Neutrophils # 10.5 K/mcL (1.6-8.9); Platelet Count 248 K/mcL (140-400); Red Blood Count 3.02 M/mcL (3.82-4.97); Red Cell Distribution Width 15.7 % (11.5-14.5); Segmented Neutrophils % 76.2 %
[2018-01-25 04:30] LABS: BUN/Creatinine Ratio 28 (6-26); Blood Urea Nitrogen 25 mg/dL (8-23); Calcium 8.5 mg/dL (8.6-10.3); Carbon Dioxide 26 mEq/L (23-29); Chloride 108 mEq/L (98-107); Glucose 153 mg/dL (70-105); Magnesium 2.3 mg/dL (1.6-2.6); Osmolality,Calculated 297 (280-300); Potassium 4.3 mEq/L (3.5-5.1); Sodium 140 mEq/L (136-145); eGFR For African Americans > 60 (> 60); eGFR For Non-African Americans > 60 (> 60)
[2018-01-25] MEDS: *HR* Heparin 5,000 UNIT/ML VIAL SQ SCH (05:11)
[2018-01-25] MEDS: Dexmedetomidine HCl 400 MCG/100 ML MLS IVC SCH (06:04)
--- NOTE | 2018-01-25 07:40 | Pulmonology Progress Note ---
<Padmini Cabralsteffanie M - Last Filed: 01/25/18 10:16> Date of Encounter: 01/25/18 Objective PUL Vital signs: Last Vital Signs Temp 98.4 F 01/25/18 07:32 Pulse 55 01/25/18 09:00 Resp 22 01/25/18 09:00 BP 94/60 01/25/18 09:00 Pulse Ox 92 01/25/18 09:00 Ventilator Settings Ventilator Settings: Ventilator Settings, Last 8 Hours Ventilator Mode A/C Ventilator Mode A/C Ventilator Mode A/C Ventilator Mode A/C Ventilator Mode A/C Ventilator Mode A/C Ventilator Mode A/C Ventilator Mode A/C Ventilator Tidal Volume 500 Setting Ventilator Tidal Volume 500 Setting Ventilator Tidal Volume 500 Setting Ventilator Tidal Volume 500 Setting Ventilator Tidal Volume 500 Setting Ventilator Tidal Volume 500 Setting Ventilator Tidal Volume 500 Setting Ventilator Tidal Volume 500 Setting Ventilator Tidal Volume 500 Setting Ventilator Tidal Volume 500 Setting Ventilator Tidal Volume 500 Setting Ventilator Tidal Volume 500 Setting Ventilator Respiratory Rate 16 Setting Ventilator Respiratory Rate 16 Setting Ventilator Respiratory Rate 16 Setting Ventilator Respiratory Rate 16 Setting Ventilator Respiratory Rate 16 Setting Ventilator Respiratory Rate 16 Setting Ventilator Respiratory Rate 16 Setting Ventilator Respiratory Rate 16 Setting Ventilator Respiratory Rate 16 Setting Ventilator Respiratory Rate 16 Setting Ventilator Respiratory Rate 16 Setting Ventilator Respiratory Rate 16 Setting Actual Respiratory Rate 22 Actual Respiratory Rate 24 Actual Respiratory Rate 21 Actual Respiratory Rate 20 Actual Respiratory Rate 17 Actual Respiratory Rate 16 Actual Respiratory Rate 16 Actual Respiratory Rate 18 Actual Respiratory Rate 16 Actual Respiratory Rate 16 Actual Respiratory Rate 21 Actual Respiratory Rate 18 Positive End Expiratory 5 Pressure Positive End Expiratory 5 Pressure Positive End Expiratory 5 Pressure Positive End Expiratory 5 Pressure Positive End Expiratory 5 Pressure Positive End Expiratory 5 Pressure Positive End Expiratory 5 Pressure Positive End Expiratory 5 Pressure Positive End Expiratory 5 Pressure Positive End Expiratory 5 Pressure Positive End Expiratory 5 Pressure Positive End Expiratory 5 Pressure Peak Inspiratory Airway 45 Pressure Peak Inspiratory Airway 29 Pressure Peak Inspiratory Airway 24 Pressure Peak Inspiratory Airway 27 Pressure Peak Inspiratory Airway 31 Pressure Peak Inspiratory Airway 29 Pressure Peak Inspiratory Airway 29 Pressure Peak Inspiratory Airway 24 Pressure Peak Inspiratory Airway 24 Pressure Peak Inspiratory Airway 23 Pressure Peak Inspiratory Airway 27 Pressure Peak Inspiratory Airway 29 Pressure Results - Laboratory Findings CBC and BMP: 01/25/18 04:00 01/25/18 03:46 ABG ABG pH 7.42 pH Units (7.32-7.45) 01/23/18 04:40 ABG pCO2 45 mmHg (35-45) 01/23/18 04:40 ABG pO2 68 mmHg (85-104) L 01/23/18 04:40 ABG O2 Saturation 94 % (95-98) L 01/23/18 04:40 PT/INR, D-dimer PT 11.6 Seconds (9.4-12.1) 01/18/18 11:35 Abnormal lab findings: Abnormal lab results WBC 13.8 K/mcL (4.3-11.1) H 01/25/18 04:00 RBC 3.02 M/mcL (3.82-4.97) L 01/25/18 04:00 Hgb 8.2 g/dL (11.5-15.4) L 01/25/18 04:00 Hct 26.7 % (35.3-44.9) L 01/25/18 04:00 MCH 27.2 pg (28.0-33.3) L 01/25/18 04:00 MCHC 30.7 g/dL (31.6-35.5) L 01/25/18 04:00 RDW 15.7 % (11.5-14.5) H 01/25/18 04:00 Neutrophils # 10.5 K/mcL (1.6-8.9) H 01/25/18 04:00 Nucleated RBCs/100 WBC 0.1 /100 WBC (0) H 01/20/18 04:00 Platelet Estimate Increased (Normal) H 01/18/18 02:53 ABG pO2 68 mmHg (85-104) L 01/23/18 04:40 ABG HCO3 30 mEq/L (21-27) H 01/23/18 04:40 ABG Total CO2 31 mEq/L (20-26) H 01/23/18 04:40 ABG O2 Saturation 94 % (95-98) L 01/23/18 04:40 ABG Base Excess 5 mEq/L (-2 to 3) H 01/23/18 04:40 Chloride 108 mEq/L (98-107) H 01/25/18 03:46 BUN 25 mg/dL (8-23) H 01/25/18 03:46 BUN/Creatinine Ratio 28 (6-26) H 01/25/18 03:46 Glucose 153 mg/dL (70-105) H 01/25/18 03:46 POC Glucose 151 mg/dL (70-99) H 01/25/18 08:52 Calcium 8.5 mg/dL (8.6-10.3) L 01/25/18 03:46 Venous Ioniz Calcium 1.14 mmol/L (1.15-1.35) L 01/23/18 03:23 Troponin I 2.17 ng/mL (< 0.04) H* 01/19/18 09:32 B-Natriuretic Peptide 243 pg/mL (Less than 100) H 01/18/18 02:53 Serum Total Protein 5.5 g/dL (6.4-8.9) L 01/21/18 17:35 Albumin 2.9 g/dL (3.5-5.7) L 01/21/18 17:35 Urine Clarity Cloudy (Clear) A 01/18/18 03:18 Ur Specific [place] 1.026 (1.010-1.025) H 01/18/18 03:18 Urine Protein >=300 mg/dL (Neg-Trace) H 01/18/18 03:18 Urine Glucose (UA) >=1000 mg/dL (Normal) H 01/18/18 03:18 Urine Blood Small (Negative) H 01/18/18 03:18 Urine Microscopic WBC 50-100 per hpf (0-3) H 01/18/18 03:18 Ur Squamous Epith Cells Many per lpf (None-Few) H 01/18/18 03:18 - Microbiology Findings Microbiology Findings: Microbiology, Last 48 Hours 01/21/18 22:00 Sputum Culture - Final Sputum 01/21/18 16:10 Urine Culture - Final Urine,Catheterized No growth. 01/21/18 15:55 Blood Culture - Preliminary Central Venous Catheter No growth. 01/21/18 16:03 Blood Culture - Preliminary Central Venous Catheter No growth. - Clinical Findings Intake & Output: Intake & Output 01/24/18 01/25/18 01/25/18 23:59 07:59 15:59 Intake Total 1533.8 / 1533.8 1176.5 / 1176.5 Output Total 600 / 600 Balance 933.8 / 933.8 1176.5 / 1176.5 Weight 137.2 kg Consult Discharge Plan - Plan Referrals: Jann Payne MD [Primary Care Provider] - - Attending Attestation I examined this patient and my medical decision-making was reviewed with the Resident Physician. I agree with the documented findings, disposition and treatment plan as described except to the extent set forth below. Patient seen and examined. Labs, radiology, chart personally reviewed. Agree with resident's history and physical, assessment, plan with following comments: FINANCIAL ADMINISTRATOR: Patient is on sedatin and will wean off more when ready for extubation, Pulmonary: Acceptable oxygenation and ventilation and changed mode to VC+ which is more comfortable for patient and palliative care is following up for possible terminal extubaiton based on POA and patient's wishes. Cardiovascular: stable GI: Nutrition per dietary and GI prophylaxis per routine Heme: DVT prophylaxis per routine ID: Continue antibiotics and plan to de-escalation. Stop antibiotic Renal; urine out put and renal funtion reviewed Endorcine: blood glucose is monitored Lines: all lines checked and no evidence of infections Skin: skin care to prevent pressure ulcers per nursing routine care Overall prognosis is poor. <Kwaku Saldana - Last Filed: 01/25/18 11:22> Date of Encounter: 01/25/18 Time of Encounter: 11:15 Assessment and Plan (1) Acute respiratory failure with hypoxia and hypercapnia Current Visit: Yes Status: Acute - Acute respiratory failure with hypoxia hypercapnia possibly secondary to pulmonary edema, ACS vs less likely pneumonia - ABG on admission was uncompensated respiratory acidosis, pH 7.02, CO2 87. ABG has improved - CTA on emergency room shows bilateral atelectasis vs pneumonia - intubated in emergency room for respiratory distress, still requiring ventilator support - Met SIRS criteria on admission. - Lactic acid of 6.4, trended down to 2.2. Likely a result of hypoxemia/ infection - Troponin of 0.04/0.36/2.22/2.92 troponins have gone down - Echo on 01/18/18 shows EF 30-35%, global wall dysfunction, mild diastolic dysfunction Plan - Terminal extubation today - Discontinue Zosyn as today would finish up in a day course. - Attempt to diuresis as blood pressure allows. Good urine output with 40 lasix last evening. - Monitor daily labs Have palliative speak with patient about changing status to DNR CC once patient is been extubated. (2) Pulmonary edema Current Visit: Yes Status: Acute As above for acute respiratory failure No reported history CHF however echo did show combined CHF We will diurese as needed Qualifiers: Chronicity: acute Qualified Code(s): J81.0 - Acute pulmonary edema (3) Lactic acidosis Current Visit: Yes Status: Resolved Lactic acidosis has normalized we will continue to monitor (4) Sepsis Current Visit: Yes Status: Acute Patient is no longer septic plan is to extubate today we ordered discontinuing the Zosyn as she completed in a day course. Leukocytosis is also normalizing there have been no recent elevated temperatures Qualifiers: Sepsis type: sepsis due to unspecified organism Qualified Code(s): A41.9 - Sepsis, unspecified organism (5) Congestive heart failure Current Visit: Yes Status: Acute Patient was weaned off vasopressors she did present with an N semi-went for left heart catheterization without identifiable target lesion and recommended medical management she does have to be diffuse coronary artery disease. She has beta cata allergy she is okay for statin and aspirin cardiology has signed off that we are following the recommendations. Continue Lasix diuresis as needed. Echocardiogram did show EF of 35% Qualifiers: Heart failure type: combined systolic and diastolic Heart failure chronicity: acute on chronic Qualified Code(s): I50.43 - Acute on chronic combined systolic (congestive) and diastolic (congestive) heart failure (6) Elevated troponin Current Visit: Yes Status: Acute Left heart catheter done by cardiology did not show any blockages at needed stents but did show diffuse coronary artery disease there to be treating him medically follow cardiology's recommendations. (7) HTN (hypertension) Current Visit: Yes Status: Chronic Hold home medications this time as patient is hypotensive we do not want to make her hypotension worse Qualifiers: Hypertension type: essential hypertension Qualified Code(s): I10 - Essential (primary) hypertension (8) DVT prophylaxis Current Visit: Yes Status: Acute Heparin subcutaneous Subjective Principal diagnosis: Acute respiratory failure, NSTEMI Interval history: There were no acute events overnight. They did speak with family and the plan was around 10:00 this morning to extubate the patient terminally MCL she does. She has been changed to a DNR CCA/DNI. Plan is for palliative's talked the patient to see if they want to make a DNR CC change. Otherwise no acute events. Objective PUL Vital signs: Last Vital Signs Temp 98.4 F 01/25/18 07:32 Pulse 58 01/25/18 07:00 Resp 19 01/25/18 07:36 BP 84/51 01/25/18 07:36 Pulse Ox 95 01/25/18 07:36 General appearance: no acute distress, other (Somnolent and sedated while on the ventilator) Eyes: nonicteric ENT: oropharynx moist Neck: supple Effort: normal Auscultation: bilateral: diminished breath sounds, rhonchi Cardiovascular: regular rate and rhythm Gastrointestinal: normoactive bowel sounds, non-distended Integumentary: normal Extremities: no cyanosis, no edema, no clubbing Musculoskeletal: no deformities, ROM normal normal mental status, non-focal exam Ventilator Settings Ventilator Settings: Ventilator Settings, Last 8 Hours Ventilator Mode A/C Ventilator Mode A/C Ventilator Mode A/C Ventilator Mode A/C Ventilator Mode A/C Ventilator Mode A/C Ventilator Mode A/C Ventilator Mode A/C Ventilator Tidal Volume 500 Setting Ventilator Tidal Volume 500 Setting Ventilator Tidal Volume 500 Setting Ventilator Tidal Volume 500 Setting Ventilator Tidal Volume 500 Setting Ventilator Tidal Volume 500 Setting Ventilator Tidal Volume 500 Setting Ventilator Tidal Volume 500 Setting Ventilator Tidal Volume 500 Setting Ventilator Tidal Volume 500 Setting Ventilator Tidal Volume 500 Setting Ventilator Tidal Volume 500 Setting Ventilator Respiratory Rate 16 Setting Ventilator Respiratory Rate 16 Setting Ventilator Respiratory Rate 16 Setting Ventilator Respiratory Rate 16 Setting Ventilator Respiratory Rate 16 Setting Ventilator Respiratory Rate 16 Setting Ventilator Respiratory Rate 16 Setting Ventilator Respiratory Rate 16 Setting Ventilator Respiratory Rate 16 Setting Ventilator Respiratory Rate 16 Setting Ventilator Respiratory Rate 16 Setting Ventilator Respiratory Rate 16 Setting Actual Respiratory Rate 21 Actual Respiratory Rate 20 Actual Respiratory Rate 17 Actual Respiratory Rate 16 Actual Respiratory Rate 16 Actual Respiratory Rate 18 Actual Respiratory Rate 16 Actual Respiratory Rate 16 Actual Respiratory Rate 21 Actual Respiratory Rate 18 Actual Respiratory Rate 16 Actual Respiratory Rate 19 Positive End Expiratory 5 Pressure Positive End Expiratory 5 Pressure Positive End Expiratory 5 Pressure Positive End Expiratory 5 Pressure Positive End Expiratory 5 Pressure Positive End Expiratory 5 Pressure Positive End Expiratory 5 Pressure Positive End Expiratory 5 Pressure Positive End Expiratory 5 Pressure Positive End Expiratory 5 Pressure Positive End Expiratory 5 Pressure Positive End Expiratory 5 Pressure Peak Inspiratory Airway 24 Pressure Peak Inspiratory Airway 27 Pressure Peak Inspiratory Airway 31 Pressure Peak Inspiratory Airway 29 Pressure Peak Inspiratory Airway 29 Pressure Peak Inspiratory Airway 24 Pressure Peak Inspiratory Airway 24 Pressure Peak Inspiratory Airway 23 Pressure Peak Inspiratory Airway 27 Pressure Peak Inspiratory Airway 29 Pressure Peak Inspiratory Airway 23 Pressure Peak Inspiratory Airway 24 Pressure Results - Laboratory Findings CBC and BMP: 01/25/18 04:00 01/25/18 03:46 ABG ABG pH 7.42 pH Units (7.32-7.45) 01/23/18 04:40 ABG pCO2 45 mmHg (35-45) 01/23/18 04:40 ABG pO2 68 mmHg (85-104) L 01/23/18 04:40 ABG O2 Saturation 94 % (95-98) L 01/23/18 04:40 PT/INR, D-dimer PT 11.6 Seconds (9.4-12.1) 01/18/18 11:35 Abnormal lab findings: Abnormal lab results WBC 13.8 K/mcL (4.3-11.1) H 01/25/18 04:00 RBC 3.02 M/mcL (3.82-4.97) L 01/25/18 04:00 Hgb 8.2 g/dL (11.5-15.4) L 01/25/18 04:00 Hct 26.7 % (35.3-44.9) L 01/25/18 04:00 MCH 27.2 pg (28.0-33.3) L 01/25/18 04:00 MCHC 30.7 g/dL (31.6-35.5) L 01/25/18 04:00 RDW 15.7 % (11.5-14.5) H 01/25/18 04:00 Neutrophils # 10.5 K/mcL (1.6-8.9) H 01/25/18 04:00 Nucleated RBCs/100 WBC 0.1 /100 WBC (0) H 01/20/18 04:00 Platelet Estimate Increased (Normal) H 01/18/18 02:53 ABG pO2 68 mmHg (85-104) L 01/23/18 04:40 ABG HCO3 30 mEq/L (21-27) H 01/23/18 04:40 ABG Total CO2 31 mEq/L (20-26) H 01/23/18 04:40 ABG O2 Saturation 94 % (95-98) L 01/23/18 04:40 ABG Base Excess 5 mEq/L (-2 to 3) H 01/23/18 04:40 Chloride 108 mEq/L (98-107) H 01/25/18 03:46 BUN 25 mg/dL (8-23) H 01/25/18 03:46 BUN/Creatinine Ratio 28 (6-26) H 01/25/18 03:46 Glucose 153 mg/dL (70-105) H 01/25/18 03:46 POC Glucose 153 mg/dL (70-99) H 01/25/18 07:02 Calcium 8.5 mg/dL (8.6-10.3) L 01/25/18 03:46 Venous Ioniz Calcium 1.14 mmol/L (1.15-1.35) L 01/23/18 03:23 Troponin I 2.17 ng/mL (< 0.04) H* 01/19/18 09:32 B-Natriuretic Peptide 243 pg/mL (Less than 100) H 01/18/18 02:53 Serum Total Protein 5.5 g/dL (6.4-8.9) L 01/21/18 17:35 Albumin 2.9 g/dL (3.5-5.7) L 01/21/18 17:35 Urine Clarity Cloudy (Clear) A 01/18/18 03:18 Ur Specific [place] 1.026 (1.010-1.025) H 01/18/18 03:18 Urine Protein >=300 mg/dL (Neg-Trace) H 01/18/18 03:18 Urine Glucose (UA) >=1000 mg/dL (Normal) H 01/18/18 03:18 Urine Blood Small (Negative) H 01/18/18 03:18 Urine Microscopic WBC 50-100 per hpf (0-3) H 01/18/18 03:18 Ur Squamous Epith Cells Many per lpf (None-Few) H 01/18/18 03:18 - Microbiology Findings Microbiology Findings: Microbiology, Last 48 Hours 01/21/18 22:00 Sputum Culture - Final Sputum 01/21/18 16:10 Urine Culture - Final Urine,Catheterized No growth. 01/21/18 15:55 Blood Culture - Preliminary Central Venous Catheter No growth. 01/21/18 16:03 Blood Culture - Preliminary Central Venous Catheter No growth. - Clinical Findings Intake & Output: Intake & Output 01/24/18 01/24/18 01/25/18 15:59 23:59 07:59 Intake Total 1000 / 1000 1533.8 / 1533.8 1176.5 / 1176.5 Output Total 350 / 350 600 / 600 Balance 650 / 650 933.8 / 933.8 1176.5 / 1176.5 Weight 137.2 kg - VTE Documentation of Mechanical Device: Intermittent pneumatic compression device
[2018-01-25] MEDS: Chlorhexidine Rinse 15 ML MOUTHWASH MM SCH (08:44)
[2018-01-25] MEDS: Aspirin 81 MG TAB.CHEW PO SCH (08:44)
[2018-01-25] MEDS: Pantoprazole 40 MG VIAL IVP SCH (08:44)
[2018-01-25] MEDS: Sennosides 8.6 MG TABLET PO SCH (08:44)
[2018-01-25] MEDS: Piperacillin/Tazobactam 3.375 GM in 0.9 % Sodium Chloride Mini Bag 100 ML IVPB SCH (08:44)
[2018-01-25] MEDS ORDERED: *HR* LORazepam 2 MG/ML VIAL IVP ONE (10:46)
[2018-01-25] MEDS ORDERED: *HR* LORazepam 2 MG/ML VIAL IVP PRN ×2 (10:46→14:04)
--- NOTE | 2018-01-25 10:52 | Palliative - Consult Note ---
Date of Encounter: 01/25/18 Palliative-CN HPI - Data of Consult Requesting Physician: Ion Person MD Primary Care Provider: Jann Payne MD - Consult Narrative History of present illness: Ms. Michaels is a 67 year old female CC: Ion Person MD Past Med Surg Social Fam HX - Past Medical History Medical history: diabetes, hypertension - Social History Smoking Status: Never smoker Smokeless Tobacco Status: No Alcohol use: none Medications and Allergies Atorvastatin Calcium [Lipitor] 80 mg PO HS 01/18/18 [History] Budesonide Neb [Pulmicort Neb] 2 ml IH DAILY 01/18/18 [History] Clopidogrel [Plavix] 75 mg PO DAILY 01/18/18 [History] Escitalopram [Lexapro] 10 mg PO DAILY 01/18/18 [History] Flurbiprofen [Flurbiprofen] 100 mg PO DAILY 01/18/18 [History] Gabapentin [Neurontin] 300 mg PO TID 01/18/18 [History] Glimepiride [Amaryl] 4 mg PO DAILY 01/18/18 [History] Insulin NPH, HUMAN [HumuLIN N] 12 units SQ QPM 01/18/18 [History] Insulin NPH, HUMAN [HumuLIN N] 20 units SQ QAM 01/18/18 [History] Metformin HCl [Glucophage] 1,000 mg PO DAILY 01/18/18 [History] Metoprolol Succinate [Toprol Xl] 100 mg PO DAILY 01/18/18 [History] Omeprazole [PriLOSEC] 40 mg PO DAILY 01/18/18 [History] 3 Allergy/AdvReac Type Severity Reaction Status Date / Time enalaprilat [From Vasotec] Allergy Cough Verified 01/18/18 04:49 Nickel Allergy See Verified 01/18/18 04:49 Comments Beta-Blockers AdvReac Cough Verified 01/18/18 04:49 (Beta-Adrenergic Bloc Palliative Care-Exam - Constitutional Vitals: Temp Pulse Resp BP Pulse Ox 98.4 F 69 18 86/53 92 01/25/18 07:32 01/25/18 09:50 01/25/18 09:50 01/25/18 09:50 01/25/18 09:50 Internal Medicine - CN: Reslt - Labs CBC & Chem 7: 01/25/18 04:00 01/25/18 03:46 Labs: Short CBC 01/25/18 Range/Units 04:00 WBC 13.8 H (4.3-11.1) K/mcL Hgb 8.2 L (11.5-15.4) g/dL Hct 26.7 L (35.3-44.9) % Plt Count 248 (140-400) K/mcL Neutrophils # 10.5 H (1.6-8.9) K/mcL BMP 01/25/18 03:46 Sodium 140 Potassium 4.3 Chloride 108 H Carbon Dioxide 26 BUN 25 H Creatinine 0.90 Glucose 153 H Calcium 8.5 L - ABG Interpretation ABG results: ABG ABG pH 7.42 pH Units (7.32-7.45) 01/23/18 04:40 ABG pCO2 45 mmHg (35-45) 01/23/18 04:40 ABG pO2 68 mmHg (85-104) L 01/23/18 04:40 ABG O2 Saturation 94 % (95-98) L 01/23/18 04:40 PT/INR, D-dimer PT 11.6 Seconds (9.4-12.1) 01/18/18 11:35 Consult Discharge Plan - Plan Referrals: Jann Payne MD [Primary Care Provider] - Palliative Quality Code Status: 01/18/18 17:16 Resuscitation Status: Active [RES] Routine Comment: Resuscitation Status: DNR-Comfort Care-Arrest Resuscitation Status: Active [RES] Routine Comment: Resuscitation Status: [id number] 01/25/18 10:48 Resuscitation Status: Active [RES] Routine Comment: Resuscitation Status: Full Code
[2018-01-25] MEDS ORDERED: Atropine Sulfate 1% 40 DROP/2 ML BOTTLE SL PRN ×2 (11:37→14:58)
[2018-01-25] MEDS ORDERED: Scopolamine Patch 1.5 MG PATCH.TD72 TD SCH (11:45)
--- NOTE | 2018-01-25 12:48 | Palliative - Consult Note ---
Date of Encounter: 01/25/18 Time of Encounter: 10:30 - Assessment and Plan (1) Acute respiratory failure with hypoxia and hypercapnia Current Visit: Yes Status: Acute Assessment and plan: Patient dependent on ventilator support; per family wishes, patient extubated and transitioned to simple mask. Order written that patient is now DNR CCA/DNI. (2) Goals of care, counseling/discussion Current Visit: Yes Status: Acute Assessment and plan: Met with family regarding goals of care. Patient's MPOA nephew Edilberto. Family wishes to have patient extubated and kept comfortable; however, requests continued treatment with antibiotics and other treatment with medication. Patient's CODE STATUS changed to DNR CCA/DNI. Spoke regarding goals. Nephew continues to wish to allow patient to have best opportunity to live without ventilator support. Reports that he feels that she need to be kept comfortable. 1400: Called to room as family has decided to transition patient to comfort care. CODE STATUS changed to DNR CC. Updated Dr. Saldana with goals of care. (3) Congestive heart failure Current Visit: Yes Status: Acute Qualifiers: Heart failure type: combined systolic and diastolic Heart failure chronicity: acute on chronic Qualified Code(s): I50.43 - Acute on chronic combined systolic (congestive) and diastolic (congestive) heart failure (4) Elevated troponin Current Visit: Yes Status: Acute Assessment and plan: Stable. Cardiology signed off. (5) Septic shock Current Visit: Yes Status: Suspected Assessment and plan: WBC 13.8, worsening from yesterday. Patient remains on IV antibiotics. (6) Type 2 diabetes mellitus Current Visit: Yes Status: Chronic Qualifiers: Diabetes mellitus intermission coordinator insulin use: with intermission coordinator use Diabetes mellitus complication status: with hyperglycemia Qualified Code(s): E11.65 - Type 2 diabetes mellitus with hyperglycemia; Z79.4 - intermediate manager (current) use of insulin (7) Delirium Current Visit: Yes Status: Acute Assessment and plan: Patient's family reports concern that she may be suffering with Delirium. Ordered Ativan PRN for anxiety/delirium control. At 1400: Increased Ativan for comfort as patient remains anxious during assessment. (8) Pain, generalized Current Visit: Yes Status: Acute Assessment and plan: Post initial assessment, after extubation, patient is exhibiting nonverbal signs of increased pain. Patient currently on Fentanyl drip for comfort; titrate per ICU protocol. Added Roxanol for breakthrough pain control. (9) Copious oral secretions Current Visit: Yes Status: Acute Assessment and plan: Post extubation, patient suffering from copious oral secretions. Ordered Scopalamine patch and Atropine drops. Palliative-CN HPI - Data of Consult Patient: new to practice Consult date: 01/25/18 Requesting Physician: Ion Person MD Primary Care Provider: Jann Payne MD - Consult Narrative Palliative Care/Comfort Measures: Palliative care Reason for consult: Plan for terminal extubation History of present illness: Ms. Michaels is a 67 year old female Arrived to [place] [facility] on 01/18/18 via EMS due to respiratory distress, found without oxygen and oxygen saturation 64%. Patient arrived to ER with oxygen saturation 92% on nebulized mask. Patient intubated and admitted to ICU. Chest xray and KUB showed pulmonary edema and proper ET tube placement. CTA showed bilateral atelectasis and/or pneumonia and coronary artery disease. Patient admitted to ICU with acute respiratory failure, pulmonary edema, lactic acidosis, sepsis, CHF, elevated troponins, and HTN. PMH: COPD, CAD with 8 stents placed last one placed 1 year ago, type 2 diabetes insulin-dependent. Pulmonary consult completed. Patients blood pressure on admission was 250/110; however, during consultation and due to sedation BP was 80s/60s. Central line placement completed; no pneumothorax. ICU team met with patients nephew and changed CODE STATUS to DNR CCA. ICU team managed patients medical stay with IV antibiotics, IV insulin drip, and IV sedation for management of care from 01/18/18 to present date. 01/19/18 Cardiology consulted due to NSTEMI, planned for cardiac catherization, which was performed on 01/20/18. EF 35%. Cardiology recommended BB and ACEi if renal function/HR/BP would tolerate; cardiology signed off. 01/22/[address] performed showing no acute intracranial abnormaility. 01/23/18 ICU team met with patients nephew (HELENA, Edilberto) regarding prognosis. Plan to terminally extubate within the next 24-28 hours form conversation. 01/25/18: Palliative care consult requested for planning terminal extubation. Patients nephew (Edilberto, HELENA), brother, niece, niece in law present at bedside upon arrival. Discussed goals of care including extubation without reintubation , plans of care, and potential placement concerns at discharge should patient survive extubation. Patient resting quietly with eyes closed during assessment. No s/s of distress noted. Patients family reported she would not want to live like this. Patient was reactive to painful stimulation. ET Tube in place. VS 100/58, 92%, 18, and HR 55. CC: Ion Person MD Past Med Surg Social Fam HX - Past Medical History Medical history: diabetes, hypertension - Social History Smoking Status: Never smoker Smokeless Tobacco Status: No Alcohol use: none Medications and Allergies Atorvastatin Calcium [Lipitor] 80 mg PO HS 01/18/18 [History] Budesonide Neb [Pulmicort Neb] 2 ml IH DAILY 01/18/18 [History] Clopidogrel [Plavix] 75 mg PO DAILY 01/18/18 [History] Escitalopram [Lexapro] 10 mg PO DAILY 01/18/18 [History] Flurbiprofen [Flurbiprofen] 100 mg PO DAILY 01/18/18 [History] Gabapentin [Neurontin] 300 mg PO TID 01/18/18 [History] Glimepiride [Amaryl] 4 mg PO DAILY 01/18/18 [History] Insulin NPH, HUMAN [HumuLIN N] 12 units SQ QPM 01/18/18 [History] Insulin NPH, HUMAN [HumuLIN N] 20 units SQ QAM 01/18/18 [History] Metformin HCl [Glucophage] 1,000 mg PO DAILY 01/18/18 [History] Metoprolol Succinate [Toprol Xl] 100 mg PO DAILY 01/18/18 [History] Omeprazole [PriLOSEC] 40 mg PO DAILY 01/18/18 [History] 3 Allergy/AdvReac Type Severity Reaction Status Date / Time enalaprilat [From Vasotec] Allergy Cough Verified 01/18/18 04:49 Nickel Allergy See Verified 01/18/18 04:49 Comments Beta-Blockers AdvReac Cough Verified 01/18/18 04:49 (Beta-Adrenergic Bloc ROS unobtainable: due to endotracheal tube Palliative Care-Exam - Constitutional Vitals: Temp Pulse Resp BP Pulse Ox 98.4 F 83 28 125/67 86 01/25/18 07:32 01/25/18 12:00 01/25/18 12:00 01/25/18 12:00 01/25/18 12:00 General appearance: Present: morbidly obese, no acute distress - Head Head Exam: Present: atraumatic, normal inspection - Eye Eye exam: Present: normal appearance. Absent: periorbital swelling, periorbital tenderness - ENT ENT exam: Present: mucous membranes moist, normal external ear exam. Absent: normal oropharynx (sore noted to toungue.) - Expanded ENT Exam Mouth Exam: Present: drooling - Neck Neck exam: Present: full ROM, normal inspection - Respiratory Respiratory exam: Present: rhonchi. Absent: accessory muscle use, respiratory distress - Cardiovascular Cardiovascular exam: Present: RRR, +S1, +S2 - Expanded Cardiovascular Exam Peripheral pulses: 1+: Radial (L), Radial (R), Dorsalis Pedis (L) PM, Dorsalis Pedis (R) PM - Rectal Rectal exam: Present: deferred - Catheter Type: Urethral (Tovar) - Expanded Lower Extremities Exam Lower Leg exam: Present: full ROM - Neurological Exam Neurological exam: Present: altered. Absent: oriented X3 - Expanded Neurological Exam Coma Scale Eye Opening: To Pain Coma Scale Motor Response: Localizes to Pain Coma Scale Verbal Response: None Coma Scale Total: 8 - Psychiatric Psychiatric exam: Present: normal affect, normal mood - Skin Skin exam: Present: dry, intact, warm Internal Medicine - CN: Reslt - Labs CBC & Chem 7: 01/25/18 04:00 01/25/18 03:46 Labs: Short CBC 01/25/18 Range/Units 04:00 WBC 13.8 H (4.3-11.1) K/mcL Hgb 8.2 L (11.5-15.4) g/dL Hct 26.7 L (35.3-44.9) % Plt Count 248 (140-400) K/mcL Neutrophils # 10.5 H (1.6-8.9) K/mcL BMP 01/25/18 03:46 Sodium 140 Potassium 4.3 Chloride 108 H Carbon Dioxide 26 BUN 25 H Creatinine 0.90 Glucose 153 H Calcium 8.5 L - ABG Interpretation ABG results: ABG ABG pH 7.42 pH Units (7.32-7.45) 01/23/18 04:40 ABG pCO2 45 mmHg (35-45) 01/23/18 04:40 ABG pO2 68 mmHg (85-104) L 01/23/18 04:40 ABG O2 Saturation 94 % (95-98) L 01/23/18 04:40 PT/INR, D-dimer PT 11.6 Seconds (9.4-12.1) 01/18/18 11:35 Consult Discharge Plan - Plan Referrals: Jann Payne MD [Primary Care Provider] - Palliative Quality Palliative Quality: Screen for Code Status: Yes, Screen for Goals of Care: Yes, Screen for Pain: Yes, If Pain Regimen Started, Initiate Bowel Regimen: NA, Screen for Nausea/Vomitting: Yes Code Status: 01/18/18 17:16 Resuscitation Status: Active [RES] Routine Comment: Resuscitation Status: DNR-Comfort Care-Arrest Resuscitation Status: Active [RES] Routine Comment: Resuscitation Status: [id number] 01/25/18 10:48 Resuscitation Status: Active [RES] Routine Comment: Resuscitation Status: Full Code
[2018-01-25] MEDS: FentaNYL (PF) 1,000 MCG in 0.9 % Sodium Chloride 80 ML IVC SCH (13:00)
[2018-01-25] MEDS ORDERED: Bisacodyl 10 MG RECTAL SUPPOSITORY RC PRN ×2 (14:05→14:58)
[2018-01-25] MEDS ORDERED: MORPHINE SUL Oral CONC 10 MG/0.5 ML ORAL.SYG SL PRN ×2 (14:19→14:58)
--- NOTE | 2018-01-25 14:45 | Electrocardiograph Report ---
[address] [place] [address] Test Date: 2018-01-22 Pat Name: Renetta Michaels Department: 109 Room: 12 Gender: F Nurse Leader: : 1950 Requested By: Oma Jarrell Order Number: [id number] Reading MD: Lizy Bhagat Measurements Intervals [place] Rate: 53 P: 17 KS: 160 QRS: 20 QRSD: 91 T: 80 QT: 443 QTc: 427 Interpretive Statements SINUS BRADYCARDIA NONSPECIFIC ST-WAVE ABNORMALITY Electronically Signed On 01-25-2018 14:43:12 EDT by Lizy Bhagat
[2018-01-25] MEDS ORDERED: Acetaminophen 650 MG RECTAL SUPP RC PRN (14:58)
[2018-01-25] MEDS ORDERED: Albuterol 2.5 MG/3 ML NEBULIZER IH PRN (14:58)
[2018-01-25] MEDS ORDERED: Haloperidol Lactate 5 MG/ML VIAL IVP PRN (15:11)
[2018-01-25] MEDS: *HR* LORazepam 2 MG/ML VIAL IVP PRN ×3 (16:14→22:02)
[2018-01-25] MEDS: MORPHINE SUL Oral CONC 10 MG/0.5 ML ORAL.SYG SL PRN ×2 (16:40→17:43)
[2018-01-26] MEDS: MORPHINE SUL Oral CONC 10 MG/0.5 ML ORAL.SYG SL PRN ×4 (00:50→14:35)
[2018-01-26] MEDS: *HR* LORazepam 2 MG/ML VIAL IVP PRN ×7 (02:45→14:30)
[2018-01-26] MEDS: Norepinephrine 4 MG in D5% in Water 250 ML IVC SCH (06:49)
[2018-01-26] MEDS: *HR* Heparin 5,000 UNIT/ML VIAL SQ SCH (08:43)
[2018-01-26] MEDS ORDERED: Haloperidol Lactate 5 MG/ML VIAL IVP ONE (09:48)
--- NOTE | 2018-01-26 09:57 | Palliative Progress Note ---
Date of Encounter: 01/26/18 Time of Encounter: 09:00 - Assessment and plan (1) Acute respiratory failure with hypoxia and hypercapnia Current Visit: Yes Status: Acute Assessment and plan: Patient's oxygen saturation 94% on 6L simple mask. (2) Goals of care, counseling/discussion Current Visit: Yes Status: Acute Assessment and plan: Patient remains comfort care. Discussed potential discharge planning. Informed patient's nephew of need to apply for Medicaid for usp placement for discharge once symptoms are under control. (3) Congestive heart failure Current Visit: Yes Status: Acute Qualifiers: Heart failure type: combined systolic and diastolic Heart failure chronicity: acute on chronic Qualified Code(s): I50.43 - Acute on chronic combined systolic (congestive) and diastolic (congestive) heart failure (4) Elevated troponin Current Visit: Yes Status: Acute (5) Septic shock Current Visit: Yes Status: Suspected Assessment and plan: Patient tachycardic and had elevated temperature. Patient is comfort care; continue to manage symptoms. (6) Type 2 diabetes mellitus Current Visit: Yes Status: Chronic Qualifiers: Diabetes mellitus emt intermediate insulin use: with assisted use Diabetes mellitus complication status: with hyperglycemia Qualified Code(s): E11.65 - Type 2 diabetes mellitus with hyperglycemia; Z79.4 - long term (current) use of insulin (7) Delirium Current Visit: Yes Status: Acute Assessment and plan: Patient remains anxious with the possibility of delirium occurring. Changed Haldol to scheduled dosing and increased dose of Ativan to 2 mg and spaced Ativan to every 2 hours prn. (8) Pain, generalized Current Visit: Yes Status: Acute (9) Copious oral secretions Current Visit: Yes Status: Acute Assessment and plan: Patient is ordered scopalamine patch and atropine drops for increased oral secretions. Did not hear audible secretions during assessment. - Time Spent With Patient Total time spent is greater than 50% in coordination of care (as documented) at patient's floor/unit and/or counseling patient: - Subjective Interval history: Patient laying in bed with eyes closed upon arrival. Noted increased respiratory rate and agonal type breathing. Frequent arm movements noted, grasping at the air. Patient feels warm to touch and diaphoretic. Patient's nephew at bedside. Discussed further goals of care regarding continued symptom management. Patient is nonreactive to tactile or verbal stimulation on assessment. Patient has received 1 dose of Tylenol for fever, 10 doses of PRN Ativan for anxiety, and 5 doses of PRN Roxanol in the last 24 hours. - Constitutional Vitals: Abnormal lab results WBC 13.8 K/mcL (4.3-11.1) H 01/25/18 04:00 RBC 3.02 M/mcL (3.82-4.97) L 01/25/18 04:00 Hgb 8.2 g/dL (11.5-15.4) L 01/25/18 04:00 Hct 26.7 % (35.3-44.9) L 01/25/18 04:00 MCH 27.2 pg (28.0-33.3) L 01/25/18 04:00 MCHC 30.7 g/dL (31.6-35.5) L 01/25/18 04:00 RDW 15.7 % (11.5-14.5) H 01/25/18 04:00 Neutrophils # 10.5 K/mcL (1.6-8.9) H 01/25/18 04:00 Nucleated RBCs/100 WBC 0.1 /100 WBC (0) H 01/20/18 04:00 Platelet Estimate Increased (Normal) H 01/18/18 02:53 ABG pO2 68 mmHg (85-104) L 01/23/18 04:40 ABG HCO3 30 mEq/L (21-27) H 01/23/18 04:40 ABG Total CO2 31 mEq/L (20-26) H 01/23/18 04:40 ABG O2 Saturation 94 % (95-98) L 01/23/18 04:40 ABG Base Excess 5 mEq/L (-2 to 3) H 01/23/18 04:40 Chloride 108 mEq/L (98-107) H 01/25/18 03:46 BUN 25 mg/dL (8-23) H 01/25/18 03:46 BUN/Creatinine Ratio 28 (6-26) H 01/25/18 03:46 Glucose 153 mg/dL (70-105) H 01/25/18 03:46 POC Glucose 151 mg/dL (70-99) H 01/25/18 08:52 Calcium 8.5 mg/dL (8.6-10.3) L 01/25/18 03:46 Venous Ioniz Calcium 1.14 mmol/L (1.15-1.35) L 01/23/18 03:23 Troponin I 2.17 ng/mL (< 0.04) H* 01/19/18 09:32 B-Natriuretic Peptide 243 pg/mL (Less than 100) H 01/18/18 02:53 Serum Total Protein 5.5 g/dL (6.4-8.9) L 01/21/18 17:35 Albumin 2.9 g/dL (3.5-5.7) L 01/21/18 17:35 Urine Clarity Cloudy (Clear) A 01/18/18 03:18 Ur Specific [place] 1.026 (1.010-1.025) H 01/18/18 03:18 Urine Protein >=300 mg/dL (Neg-Trace) H 01/18/18 03:18 Urine Glucose (UA) >=1000 mg/dL (Normal) H 01/18/18 03:18 Urine Blood Small (Negative) H 01/18/18 03:18 Urine Microscopic WBC 50-100 per hpf (0-3) H 01/18/18 03:18 Ur Squamous Epith Cells Many per lpf (None-Few) H 01/18/18 03:18 General appearance: Present: disheveled, mild distress - Head Head exam: Present: atraumatic, normal inspection - Eye Eye exam: Present: EOMI, normal appearance, PERRL. Absent: periorbital swelling , periorbital tenderness Pupils: Present: normal accommodation, PERRL - ENT ENT exam: Present: mucous membranes dry, normal external ear exam - Neck Neck exam: Present: normal inspection - Respiratory Respiratory exam: Present: accessory muscle use, respiratory distress (some noted.), rhonchi, tachypnea - Cardiovascular Cardiovascular exam: Present: +S1, +S2, tachycardia - GI/Abdominal GI/Abdominal exam: Present: distended, hypoactive bowel sounds, soft. Absent: tenderness - Rectal Rectal exam: Present: deferred - Expanded Exam Female exam: Present: deferred - Extremities Exam Extremities exam: Present: normal inspection, pedal edema. Absent: calf tenderness, tenderness - Neurological Exam Neurological exam: Present: altered. Absent: alert - Expanded Neurological Exam Coma Scale Eye Opening: None Coma Scale Motor Response: Withdraws to Pain Coma Scale Verbal Response: None Coma Scale Total: 6 - Psychiatric Psychiatric exam: Present: anxious - Skin Skin exam: Present: diaphoretic, dry, warm Palliative Quality Palliative Quality: Screen for Code Status: Yes, Screen for Goals of Care: Yes, Screen for Pain: Yes, If Pain Regimen Started, Initiate Bowel Regimen: Yes, Screen for Nausea/Vomitting: Yes Code Status: 01/18/18 17:16 Resuscitation Status: Active [RES] Routine Comment: Resuscitation Status: DNR-Comfort Care-Arrest Resuscitation Status: Active [RES] Routine Comment: Resuscitation Status: [id number]-[id number] 01/25/18 12:46 DNR [Resuscitation Status: Active] [RES] Routine Comment: Patient to be DNI per patient's nephew. Resuscitation Status: [id number] DNR [Resuscitation Status: Active] [RES] Routine Comment: Patient to be DNR CC per patient's nephew. Resuscitation Status: DNR-Comfort Care - Labs CBC & Chem 7: 01/25/18 04:00 01/25/18 03:46 - ABG Interpretation ABG results: ABG ABG pH 7.42 pH Units (7.32-7.45) 01/23/18 04:40 ABG pCO2 45 mmHg (35-45) 01/23/18 04:40 ABG pO2 68 mmHg (85-104) L 01/23/18 04:40 ABG O2 Saturation 94 % (95-98) L 01/23/18 04:40 PT/INR, D-dimer PT 11.6 Seconds (9.4-12.1) 01/18/18 11:35 Consult Discharge Plan - Plan Referrals: Jann Payne MD [Primary Care Provider] -
[2018-01-26] MEDS ORDERED: *HR* HYDROmorphone 20 MG/20 ML PCA IVC PRN ×3 (10:42→14:55)
--- NOTE | 2018-01-26 10:57 | Event Note ---
Date of Encounter: 01/26/18 Time of Encounter: 10:00 Post assessing patient, spoke with Dr. Andrade regarding GIP status. Dr. Andrade assessed patient and agreed with GIP status transition. Added Dilaudid ADOBE BALL MIXER for comfort. Notified Yadi Jasso at [facility] of need for evaluation at 1054.
--- NOTE | 2018-01-26 11:01 | Event Note ---
Date of Encounter: 01/26/18 Time of Encounter: 11:01 Hospice Property Custodian Certification of Terminal Illness: Hospice Benefit Period Start:01/26/18 Hospice Benefit Period End:= 90 days Palliative Performance Scale (PPS):10% History: pt with actue resp failure recently extubated resp failure d/t copd/ chfa nd septic shock. all agressive caare stopped pt not getting any form of nutrition. therefore, These findings support a life expectancy of six months or less. I attest that I have composed the above narrative based on my review of the medical records, or my examination of the patient. Physician Name: Shiraz Andrade MD Property Custodian, [facility], [facility] Palliative care Consultation Service
[2018-01-26] MEDS ORDERED: 0.9 % Sodium Chloride 1,000 ML ONE (11:05)
[2018-01-26 11:07] VITALS: BP 145/73
[2018-01-26] MEDS ORDERED: Haloperidol Lactate 5 MG/ML VIAL IVP SCH (12:00)
--- NOTE | 2018-01-26 14:49 | Discharge Summary ---
Orders not resulted at time of discharge: Pending orders 01/21/18 15:55 Culture,Blood [] Stat Date of Encounter: 01/26/18 Time of Encounter: 11:00 - Discharge Diagnosis (1) Congestive heart failure Priority: Primary Status: Acute Qualifiers: Heart failure type: combined systolic and diastolic Heart failure chronicity: unspecified Qualified Code(s): I50.40 - Unspecified combined systolic (congestive) and diastolic (congestive) heart failure (2) Pulmonary edema Priority: Primary Status: Acute Qualifiers: Chronicity: acute Qualified Code(s): J81.0 - Acute pulmonary edema (3) Lactic acidosis Priority: Secondary Status: Resolved (4) Acute respiratory failure with hypoxia and hypercapnia Priority: Primary Status: Acute (5) HTN (hypertension) Priority: Secondary Status: Chronic Qualifiers: Hypertension type: essential hypertension Qualified Code(s): I10 - Essential (primary) hypertension (6) NSTEMI (non-ST elevated myocardial infarction) Priority: Primary Status: Acute (7) Acute coronary syndrome Priority: Secondary Status: Suspected (8) Hyperkalemia Priority: Secondary Status: Resolved (9) Septic shock Priority: Primary Status: Suspected (10) Type 2 diabetes mellitus Priority: Secondary Status: Chronic Qualifiers: Diabetes mellitus termite treater insulin use: with termite treater use Diabetes mellitus complication status: with hyperglycemia Qualified Code(s): E11.65 - Type 2 diabetes mellitus with hyperglycemia; Z79.4 - terminal gauger supervisor (current) use of insulin Hospital course: Patient is a 67-year-old female with past medical history significant for COPD, CAD with 8 stents placed last one placed 1 year ago, type 2 diabetes insulin- dependent presented to the emergency room on 01/18/18 due to shortness of breath. EMS reported that she was hypoxic at 64%; she was on CPAP at home but was found without any other oxygen. Boyfriend noticed that she was having very hard time breathing and she woke up from sleep seen that she felt like she was suffocating. In the emergency room she was unable to follow commands very lethargic and was hypertensive with a systolic of 228 and a heart rate of 158. Saturations by EMS for 64%. Patient was intubated due to acute hypoxic/hypercapnic respiratory failure. Patient was also found to be in septic shock is treated with IV antibiotics in addition to vasopressors. She was also found to have non-STEMI and cardiology was consulted with recommendations for left heart catheterization which showed nonobstructive coronary arterial disease with a LVEF of 35%. Recommend ASIS for patient to chart beta cata and victorino on discharge. It was decided for terminal extubation due to patient/family wishes us patient s wishes were not to remain on support/ventilator long-term. Palliative care consulted and will take over as primary for hospice care. - Time Spent with Patient Total time spent providing and/or coordinating discharge services: Less than 30 minutes - Discharge Medications Home Medications: Atorvastatin Calcium [Lipitor] 80 mg PO HS 01/18/18 [History] Budesonide Neb [Pulmicort Neb] 2 ml IH DAILY 01/18/18 [History] Clopidogrel [Plavix] 75 mg PO DAILY 01/18/18 [History] Escitalopram [Lexapro] 10 mg PO DAILY 01/18/18 [History] Flurbiprofen [Flurbiprofen] 100 mg PO DAILY 01/18/18 [History] Gabapentin [Neurontin] 300 mg PO TID 01/18/18 [History] Glimepiride [Amaryl] 4 mg PO DAILY 01/18/18 [History] Insulin NPH, HUMAN [HumuLIN N] 12 units SQ QPM 01/18/18 [History] Insulin NPH, HUMAN [HumuLIN N] 20 units SQ QAM 01/18/18 [History] Metformin HCl [Glucophage] 1,000 mg PO DAILY 01/18/18 [History] Metoprolol Succinate [Toprol Xl] 100 mg PO DAILY 01/18/18 [History] Omeprazole [PriLOSEC] 40 mg PO DAILY 01/18/18 [History] Allergies/Adverse Reactions: 3 Allergy/AdvReac Type Severity Reaction Status Date / Time enalaprilat [From Vasotec] Allergy Cough Verified 01/18/18 04:49 Nickel Allergy See Verified 01/18/18 04:49 Comments Beta-Blockers AdvReac Cough Verified 01/18/18 04:49 (Beta-Adrenergic Bloc Date of admission: 01/18/18 05:08 Primary care physician: Jann Payne MD Consults: 01/18/18 05:53 Consult to Pulmonology [CONS] Routine Consulting Provider: Pulm Crit Care [facility] Pretty Reason for Consult: Flash pulmonary edema and ventilator mgmt Time Notified: 05:56 Call Completed: Yes 05/14/18 09:48 Consult to Cardiology [CONS] Routine Comment: Consulting Provider: Cardiology Pretty Reason for Consult: troponin, CHF Call Completed: Yes 01/25/18 08:09 Consult to Palliative Care [CONS] Routine Comment: Consulting Provider: Palliative Care Pretty Reason for Consult: planning terminal extubation Call Completed: No - Constitutional Vitals: Temp Pulse Resp BP Pulse Ox 97.5 F L 109 36 145/73 92 01/26/18 11:00 01/26/18 11:00 01/26/18 11:00 01/26/18 11:00 01/26/18 11:00 General appearance: Present: no acute distress - Cardiovascular Cardiovascular exam: Present: RRR, +S1, +S2. Absent: diastolic murmur, gallop, rubs, systolic murmur - Patient Status Disposition: Hospice - Medical Facility Condition: Critical - Discharge Instructions Follow Up With: Jann Payne MD [Primary Care Provider] - - VTE Documentation of Mechanical Device: Intermittent pneumatic compression device
[2018-01-28] MEDS ORDERED: Scopolamine Patch 1.5 MG PATCH.TD72 TD SCH (11:45)
== END 2018-01-26 15:06 | disposition hospice, inpatient (51) | DRG 280 ==
LOC: EMEROO 02:43 → ICNU 05:08 → SUATTDRO 05:08 → ICNU 05:10 → 2ANU 01-25 15:49
PROVIDERS: ADMIT Pediatrics; ATTEND Hospitalist

== ENCOUNTER 2018-01-26 13:41 | Inpatient (IN) ==
[2018-01-26] MEDS ORDERED: Atropine Sulfate 1% 40 DROP/2 ML BOTTLE SL PRN (14:01)
[2018-01-26] MEDS ORDERED: Ipratropium/Albuterol Neb 3 ML IH PRN (14:01)
[2018-01-26] MEDS ORDERED: Bisacodyl 10 MG RECTAL SUPPOSITORY RC PRN (14:01)
[2018-01-26] MEDS ORDERED: Acetaminophen 650 MG RECTAL SUPP RC PRN (14:01)
[2018-01-26] MEDS ORDERED: Ondansetron 4 MG/2 ML VIAL IVP PRN (14:01)
[2018-01-26] MEDS ORDERED: *HR* HYDROmorphone 20 MG/20 ML PCA IVC PRN ×2 (14:09→14:57)
[2018-01-26] MEDS ORDERED: Scopolamine Patch 1.5 MG PATCH.TD72 TD SCH (14:15)
--- NOTE | 2018-01-26 15:04 | Pallative History & Physical ---
Date of Encounter: 01/26/18 Time of Encounter: 10:40 Assessment and Plan (1) Acute respiratory failure with hypoxia and hypercapnia Status: Acute continue o2 and nebs start dilaudid drip as the patient has required multiple redoing of meds for comfort. er d/w family will keep pt a little more on the sedated side for comfort (2) Delirium Status: Acute d/t sepsis and hypoxia treating the hypoxia, and pain (3) Goals of care, counseling/discussion Status: Acute dnr CC pt general inpatient hospice for reveal of meds needed to control sob (4) Pain, generalized Status: Acute cont dilaudid drip and prn pain meds Internal Medicine - H&P: HPI Admitted From: Intrahospital Transfer Plans for Post Hospital Care: Hospice - Home History of present illness: Ms. Michaels is a 67 year old female Ms. Michaels is a 67 year old female Arrived to [place] [facility] on 01/18/18 via EMS due to respiratory distress, . Patient intubated and admitted to ICU. Chest xray and KUB showed pulmonary edema CTA showed bilateral atelectasis and/or pneumonia and coronary artery disease. Patient admitted to ICU with acute respiratory failure, pulmonary edema, lactic acidosis, sepsis, CHF, elevated troponins, and HTN. PMH: COPD, CAD patients medical stay with IV antibiotics , IV insulin drip, and IV sedation for management of care from 01/18/18 to present date. 01/19/18 Cardiology consulted due to NSTEMI, planned for cardiac catherization, which was performed on 01/20/18. EF 35%. Cardiology recommended BB and ACEi if renal function/HR/BP would tolerate; Plan to terminally extubate within the next 24-28 hours form conversation. 01/25/18: Palliative care consult requested for planning terminal extubation. Patients nephew (HELENA Casanova), (functional mpoa no actual paperwork on chart) Pt survived the extubation but has been altered and tachypeic since then. Drip of dilaudid was started this am at 0.3 mg Hr at recheck at 14 50 pt again haveing increased rr and drip increased t 0.5 hr based on physical exam and other med needs. All hx is from med recorda nd family Nephew Edilberto. Edilberto has asked taht the pt be agressivley treated for comfort at the possible expense of consiousness Pt requires [facility] hospice as her resp status has now required a constant infusion of meds and frequent rechecks Past Med Surg Social Fam HX - Past Medical History Medical history: diabetes, hypertension - Social History Smoking Status: Never smoker Smokeless Tobacco Status: No Alcohol use: none Internal Medicine - H&P: Meds Atorvastatin Calcium [Lipitor] 80 mg PO HS 01/18/18 [History] Budesonide Neb [Pulmicort Neb] 2 ml IH DAILY 01/18/18 [History] Clopidogrel [Plavix] 75 mg PO DAILY 01/18/18 [History] Escitalopram [Lexapro] 10 mg PO DAILY 01/18/18 [History] Flurbiprofen [Flurbiprofen] 100 mg PO DAILY 01/18/18 [History] Gabapentin [Neurontin] 300 mg PO TID 01/18/18 [History] Glimepiride [Amaryl] 4 mg PO DAILY 01/18/18 [History] Insulin NPH, HUMAN [HumuLIN N] 12 units SQ QPM 01/18/18 [History] Insulin NPH, HUMAN [HumuLIN N] 20 units SQ QAM 01/18/18 [History] Metformin HCl [Glucophage] 1,000 mg PO DAILY 01/18/18 [History] Metoprolol Succinate [Toprol Xl] 100 mg PO DAILY 01/18/18 [History] Omeprazole [PriLOSEC] 40 mg PO DAILY 01/18/18 [History] 3 Allergy/AdvReac Type Severity Reaction Status Date / Time enalaprilat [From Vasotec] Allergy Cough Verified 01/18/18 04:49 Nickel Allergy See Verified 01/18/18 04:49 Comments Beta-Blockers AdvReac Cough Verified 01/18/18 04:49 (Beta-Adrenergic Bloc ROS unobtainable: due to mental status Palliative Care-Exam - Constitutional General appearance: Present: mild distress (d/t tachypnea), morbidly obese - Head Head Exam: Present: atraumatic, normal inspection - Eye Eye exam: Present: normal appearance - ENT ENT exam: Present: mucous membranes moist - Neck Neck exam: Absent: normal inspection (central line r side) - Respiratory Respiratory exam: Present: decreased breath sounds, rhonchi, tachypnea - Cardiovascular Cardiovascular exam: Present: RRR - GI/Abdominal Exam GI/Abdominal exam: Present: normal bowel sounds, soft. Absent: tenderness - Extremities Exam Extremities exam: Present: normal inspection. Absent: tenderness - Neurological Exam Neurological exam: Present: altered. Absent: alert, oriented X3 - Psychiatric Psychiatric exam: Absent: agitated, anxious - Skin Skin exam: Present: dry, warm Palliative Quality Palliative Quality: Screen for Code Status: Yes, Screen for Goals of Care: Yes, Screen for Pain: Yes, If Pain Regimen Started, Initiate Bowel Regimen: Yes, Screen for Nausea/Vomitting: Yes Code Status: 01/26/18 14:01 Resuscitation Status: Active [RES] Routine Comment: Resuscitation Status: DNR-Comfort Care
[2018-01-26] MEDS: MORPHINE SUL Oral CONC 10 MG/0.5 ML ORAL.SYG PO PRN ×2 (16:12→18:14)
[2018-01-26] MEDS: Haloperidol Lactate 5 MG/ML VIAL IVP SCH (16:54)
[2018-01-26] MEDS: *HR* LORazepam Oral Conc 2 MG/ML PO PRN ×2 (16:55→19:17)
[2018-01-26 19:26] VITALS: BP 138/80
[2018-01-26] MEDS ORDERED: 0.9 % Sodium Chloride 500 ML ONE (20:31)
[2018-01-27] MEDS: Haloperidol Lactate 5 MG/ML VIAL IVP SCH (00:41)
--- NOTE | 2018-01-27 06:57 | Death Note ---
Discharge Sum: Summary - Date and Time Date of admission: 01/26/18 15:16 Date of : 01/27/18 Time of : 03:15 - Summary Details: [facility]. pt required a drip for comfort it was adjusted once early in the afternoon. Pt respirations slowed and appeared more comfortable. Pt passed peacefully with family at bedside at 0315 cod respiratory failure days d/t copd years comorbid cad htn diabetes never smoked - Additional Data Confirmation of as documented by pronouncing clinician: no pulse, no respirations, no heart sounds Family: at bedside Attending/PCP notified?: Yes Attending physician: Shiraz Andrade MD Was code activated?: No Autopsy requested?: No drivers license examiner notified?: No Organ bank notified?: Yes Advance directives: No Hospice patient?: Yes Discharge Sum: Diag - PCOD Probable Cause of : Respiratory arrest Discharge Sum: Prov - Provider Primary care physician: Jann Payne MD Consults: 01/26/18 14:01 Consult to Palliative Care [CONS] Routine Comment: Consulting Provider: Palliative Care Pretty Reason for Consult: [facility] management Call Completed: No
== END 2018-01-27 05:39 | disposition expired | DRG 871 ==
LOC: 2ANU 15:16
PROVIDERS: ADMIT Nurse Practitioner Family; ATTEND Family Medicine Hospice and Palliative Medicine